=== PATIENT | female | born 1945 | race Caucasian/White ===

== ENCOUNTER 2017-10-10 13:45 | Outpatient (RCR) | payer OTHER, SELFPAY ==
--- NOTE | 2017-09-03 14:31 | PT.OIE ---
Current Diagnoses Patellofemoral disorders, left knee (09/03/17) Pain in left hip (09/03/17) Pain in left knee (09/03/17) Stiffness of left hip, not elsewhere classified (09/03/17) Weakness (09/03/17) Provider Visit Care Team Role Provider Type Martin Prajapati MD Family Provider Physician Primary Care Provider Specialty: Internal Medicine Address: [address] [place] [address], [id number] Email: Lalo Velasco MD Attending Provider Physician Specialty: Orthopedics Address: [address] [place] [address], [id number] Email: Physical Therapy Initial Evaluation PT-OP-A Visit Information Start: 09/03/17 13:56 Freq: Status: Active Protocol: Document 09/03/17 12:00 DCW (Rec: 09/03/17 14:28 [facility] [id number]) Out-Patient Physical Therapy Visit Information Visit Information Visit Type Initial Evaluation Visit Start Time 12:00 Visit Stop Time 12:45 Total Visit Minutes 45 Visit Number 1 Number of ENGRAVINGS POLISHER Visits 0 Evaluation Information Evaluation Date 09/03/17 PT-OP-B Current Condition Start: 09/03/17 13:56 Freq: Status: Active Protocol: Document 09/03/17 12:00 DCW (Rec: 09/03/17 14:28 [facility] [id number]) Current Condition History of Current Condition Onset Date Worsening over past year Current Complaints Left hip pain, left knee pain History of Current Condition Pt is a 72 year old female presenting with a multi-year history of left hip pain, which used to just be minimal background pain, but now she reports it began to worsen over the past year. Additionally, pt slipped in a puddle of water walking to an airplane in December,, landing on her left knee, an has now also been experiencing left knee pain since that time. Pt reports she forces herself to go for a walk every morning, but it normally causes increased pain. Pt also notes her pain worsens over the course of the day, and then improves as she sleeps over night. Pt notes her pain is a 7/10 at worst, but that it also just stays at a 7/10 for most of the day. Pt reports she has difficulty bending or kneeling down, and walking and gardening can be very difficult. Prior Treatments and Tests X-rays - per patient: The hip looks very healthy, but there is some degeneration in the knee. Treatment Goals Patient/Caregiver Goals I want to get rid of the pain , and get back to gardening normally. Prior Functional Status Baseline Function- ADL's Independent Baseline Function- Mobility Independent Baseline Function- Gait no assistive device Baseline Function- Recreation/Hobbies Morning walks, gardening Current Functional Impairments (Reported) Functional Limitations- Recreation/ Pain during long walks, pain Hobbies kneeling while gardening PT-OP-C Subjective Start: 09/03/17 13:56 Freq: Status: Active Protocol: Document 09/03/17 12:00 DCW (Rec: 09/03/17 14:28 DCW [id number]) Patient Questionnaires Lower Extremity Functional Scale LEFS Score 32/80 = 40% LEFS Impairment 40 to 59% Impaired (Score 32- 47) OP-PT Pain Assessment Pain Assessment Grid Paper Pain Assessment Grid Completed Yes Location Left Anterior Hip Intensity 7 Scale Used Numeric (1 - 10) Description Pressure Tightness Frequency Frequent Pain Alleviating Factors Inactivity Left Anterior Knee Intensity 7 Scale Used Numeric (1 - 10) Description Pinching Stabbing Frequency Frequent Pain Alleviating Factors Inactivity PT-OP-F Manual Assessment Start: 09/03/17 13:56 Freq: Status: Active Protocol: Document 09/03/17 12:00 DCW (Rec: 09/03/17 14:28 DCW [id number]) Manual Assessments Soft Tissue Assessment Soft Tissue Mobility Assessment Moderate tone, tenderness 3/4 = Wincing and withdrawal with palpation of the left iliopsoas and left piriformis Joint Mobility Assessment Joint Mobility Assessment Hip joint mobility WNL Tibiofemoral mobility WNL Patellofemoral mobility: Pain and crepitus with inferior/ superior glide PT-OP-K Range of Motion Start: 09/03/17 13:56 Freq: Status: Active Protocol: Document 09/03/17 12:00 DCW (Rec: 09/03/17 14:28 DCW [id number]) Hip Goniometric Range of Motion Hip Measured in Degrees Right Hip ROM WFL Yes Testing Position Supine Left Hip ROM WFL Yes Testing Position Supine Knee Goniometric Range of Motion Knee Measured in Degrees Right Knee ROM WFL Yes Left Knee ROM WFL Yes Patient Position Supine PT-OP-L Special Tests Start: 09/03/17 13:56 Freq: Status: Active Protocol: Document 09/03/17 12:00 DCW (Rec: 09/03/17 14:28 [facility] [id number]) Special Tests Lumbar Spine Special Tests Standing Flexion Test Results Negative Straight Leg Raise Test Results Negative Slump Test Results Negative Hip Special Tests Tl Test Results Hip flexor tightness Straight Leg Raise Test Results Negative Piriformis Test Results Left piriformis pain ALEJANDRINA Test Results Left - ipsilateral pain at lateral hip Knee Special Tests Varus- 0 Degrees Test Results Negative Valgus- 0 Degrees Test Results Negative Posterior Draw Test Results Negative Patellar Grind Test Test Results Positive left Nicol Test Test Results Negative Flexion Rotation Draw Test Results Negative Arc Compression Test Results Patellofemoral grinding/pain Anterior Draw Test Results Negative PT-OP-M Strength Start: 09/03/17 13:56 Freq: Status: Active Protocol: Document 09/03/17 12:00 DCW (Rec: 09/03/17 14:28 [facility] [id number]) Hip Strength Hip Manual Muscle Testing Right Flexion (L2) 5 Normal Abduction 4+ Good+ Adduction 4+ Good+ External Rotation 4 Good Internal Rotation 5 Normal Left Flexion (L2) 4 Good Abduction 4 Good Adduction 4+ Good+ External Rotation 4+ Good+ Internal Rotation 4+ Good+ Comments Pain with left resisted internal rotation Knee Strength Knee Manual Muscle Testing Right Flexion (S2) 5 Normal Extension (L3) 5 Normal Left Flexion (S2) 4 Good Extension (L3) 4+ Good+ Comments Pain with resisted left knee flexion PT-OP-Q Treatments Start: 09/03/17 13:56 Freq: Status: Active Protocol: Document 09/03/17 12:00 DCW (Rec: 09/03/17 14:28 [facility] [id number]) Therapeutic Exercises Supine Exercises 2 Supine Exercise Name Psoas stretch - leg off edge of table Side left 1 Supine Exercise Name Piriformis Stretch - Knee to Opposite shoulder, figure-4 Side left Sitting Exercises 1 Sitting Exercise Name Seated figure-4 piriformis stretch Side left Standing Exercises 2 Standing Exercise Name Half-knee on plinth psoas stretch Side left 1 Standing Exercise Name Runner's stretch with heel raised for psoas Side left PT-OP-T Assessment and Plan Start: 09/03/17 13:56 Freq: Status: Active Protocol: Document 09/03/17 12:00 DCW (Rec: 09/03/17 14:28 DCW [id number]) Physical Therapy Assessment Rehab Potential Rehabilitation Potential Excellent Evaluation Complexity Number of Personal Factors/Comorbidities 1-2 Number of Body Systems Impaired 1-2 Clinical Presentation at Evaluation Stable Impairments Impairments Activity Tolerance Pain Soft Tissue Mobility Strength Tone Goals Four Impairment Soft Tissue Tone Volunteer Recruitment Coordinator Goal (LTG) Left piriformis and iliopsoas tone with palpation to trace tone and tenderness 1/4 = complaint of pain LTG Duration 10/29/17 Three Impairment Joint mobility Short Term Goal (STG) Left patellofemoral joint exhibits no crepitus with inferior/superior glide STG Duration 10/01/17 Two Impairment Strength Volunteer Recruitment Coordinator Goal (LTG) Left LE MMT grossly 5/5 pain- free LTG Duration 10/29/17 One Impairment Activity Participation Short Term Goal (STG) Pt to report no increased pain during morning walk STG Duration 10/01/17 Volunteer Recruitment Coordinator Goal (LTG) Pt to report ability to kneel while gardening for 30 minutes with no pain LTG Duration 10/29/17 Assessment Summary Assessment Pt presents with increased tone through her left psoas and piriformis, as well as patellofemoral dysfunction. Pt does have full ROM with her knee and hip, and her hip shows no signs of underlying joint degeneration or arthritis. Pt's knee appears to be stable with no joint laxity following her fall last December. Pt should benefit from general LE strengthening, flexibility/stretching exercises and manual therapy to assist decreasing tone, modalities for pain control, and body piercer training to improve ability to walk and kneel without causing pain. Physical Therapy Plan Frequency and Duration Frequency of Treatment 2x/Week Duration of Treatment 10 weeks Plan of Care Start Date 09/03/17 Plan of Care End Date 11/12/17 Therapeutic Interventions Therapeutic Interventions Aquatic Therapy Home Exercise Program Joint Mobilizations Manual Therapy Patient/Caregiver Education Self-Care/Home Management Soft Tissue Mobilization Taping Therapeutic Exercises Modalities Cold Pack/Ice Massage Electric Stimulation Hot Packs Ultrasound Next Visit Focus/Plan Next Note Type Treatment Note Next Visit Plan LE strengthening, stretching, manual STM
--- NOTE | 2017-09-03 14:31 | PT.OPPOC ---
Current Diagnoses Patellofemoral disorders, left knee (09/03/17) Pain in left hip (09/03/17) Pain in left knee (09/03/17) Stiffness of left hip, not elsewhere classified (09/03/17) Weakness (09/03/17) Provider Visit Care Team Role Provider Type Martin Prajapati MD Family Provider Physician Primary Care Provider Specialty: Internal Medicine Address: [address] [place] [address], [phone] Email: Lalo Velasco MD Attending Provider Physician Specialty: Orthopedics Address: [address] [place] [address], [id number] Email: Plan Of Care PT-OP-T Assessment and Plan Start: 09/03/17 13:56 Freq: Status: Active Protocol: Document 09/03/17 12:00 DCW (Rec: 09/03/17 14:28 DCW [id number]) Physical Therapy Assessment Rehab Potential Rehabilitation Potential Excellent Evaluation Complexity Number of Personal Factors/Comorbidities 1-2 Number of Body Systems Impaired 1-2 Clinical Presentation at Evaluation Stable Impairments Impairments Activity Tolerance Pain Soft Tissue Mobility Strength Tone Goals Four Impairment Soft Tissue Tone Electrical Equipment Technician Goal (LTG) Left piriformis and iliopsoas tone with palpation to trace tone and tenderness 1/4 = complaint of pain LTG Duration 10/29/17 Three Impairment Joint mobility Short Term Goal (STG) Left patellofemoral joint exhibits no crepitus with inferior/superior glide STG Duration 10/01/17 Two Impairment Strength Half-Way Goal (LTG) Left LE MMT grossly 5/5 pain- free LTG Duration 10/29/17 One Impairment Activity Participation Short Term Goal (STG) Pt to report no increased pain during morning walk STG Duration 10/01/17 Electrical Equipment Technician Goal (LTG) Pt to report ability to kneel while gardening for 30 minutes with no pain LTG Duration 10/29/17 Assessment Summary Assessment Pt presents with increased tone through her left psoas and piriformis, as well as patellofemoral dysfunction. Pt does have full ROM with her knee and hip, and her hip shows no signs of underlying joint degeneration or arthritis. Pt's knee appears to be stable with no joint laxity following her fall last December. Pt should benefit from general LE strengthening, flexibility/stretching exercises and manual therapy to assist decreasing tone, modalities for pain control, and body shop floorperson training to improve ability to walk and kneel without causing pain. Physical Therapy Plan Frequency and Duration Frequency of Treatment 2x/Week Duration of Treatment 10 weeks Plan of Care Start Date 09/03/17 Plan of Care End Date 11/12/17 Therapeutic Interventions Therapeutic Interventions Aquatic Therapy Home Exercise Program Joint Mobilizations Manual Therapy Patient/Caregiver Education Self-Care/Home Management Soft Tissue Mobilization Taping Therapeutic Exercises Modalities Cold Pack/Ice Massage Electric Stimulation Hot Packs Ultrasound Next Visit Focus/Plan Next Note Type Treatment Note Next Visit Plan LE strengthening, stretching, manual STM Plan of Care Dates Plan of Care Start Date 09/03/17 Plan of Care End Date 11/12/17 Please Sign and Return: I have reviewed this Plan of Care and certify that the skilled therapy services above are required to meet the patient?s needs. Physician Signature Date Printed Name and Credentials Clinical Instructor Signature Printed Name and Credentials
--- NOTE | 2017-09-10 12:46 | PT.OTN ---
Current Diagnoses Patellofemoral disorders, left knee (09/10/17) Physical Therapy Treatment Note PT-OP-A Visit Information Start: 09/03/17 13:56 Freq: Status: Active Protocol: Document 09/10/17 12:00 DCW (Rec: 09/10/17 12:46 DCW [id number]) Out-Patient Physical Therapy Visit Information Visit Information Visit Type Treatment Note Visit Start Time 12:00 Visit Stop Time 12:45 Total Visit Minutes 45 Visit Number 2 Number of MELT HOUSE DRAG OPERATOR Visits 0 Evaluation Information Evaluation Date 09/03/17 PT-OP-B Current Condition Start: 09/03/17 13:56 Freq: Status: Active Protocol: Document 09/03/17 12:00 DCW (Rec: 09/03/17 14:28 DCW [id number]) Current Condition History of Current Condition Onset Date Worsening over past year Current Complaints Left hip pain, left knee pain History of Current Condition Pt is a 72 year old female presenting with a multi-year history of left hip pain, which used to just be minimal background pain, but now she reports it began to worsen over the past year. Additionally, pt slipped in a puddle of water walking to an airplane in December,, landing on her left knee, an has now also been experiencing left knee pain since that time. Pt reports she forces herself to go for a walk every morning, but it normally causes increased pain. Pt also notes her pain worsens over the course of the day, and then improves as she sleeps over night. Pt notes her pain is a 7/10 at worst, but that it also just stays at a 7/10 for most of the day. Pt reports she has difficulty bending or kneeling down, and walking and gardening can be very difficult. Prior Treatments and Tests X-rays - per patient: The hip looks very healthy, but there is some degeneration in the knee. Treatment Goals Patient/Caregiver Goals I want to get rid of the pain , and get back to gardening normally. Prior Functional Status Baseline Function- ADL's Independent Baseline Function- Mobility Independent Baseline Function- Gait no assistive device Baseline Function- Recreation/Hobbies Morning walks, gardening Current Functional Impairments (Reported) Functional Limitations- Recreation/ Pain during long walks, pain Hobbies kneeling while gardening PT-OP-C Subjective Start: 09/03/17 13:56 Freq: Status: Active Protocol: Document 09/10/17 12:00 DCW (Rec: 09/10/17 12:46 DCW [id number]) OP-PT Subjective Patient Comments Patient Comments I'm having a pretty bad day, I'm sorry to say. My knee and my hip areboth killing me. Pt notes she did her morning walk for the first time in a week this morning, and thinks that may have done me in. PT-OP-F Manual Assessment Start: 09/03/17 13:56 Freq: Status: Active Protocol: Document 09/03/17 12:00 DCW (Rec: 09/03/17 14:28 DCW [id number]) Manual Assessments Soft Tissue Assessment Soft Tissue Mobility Assessment Moderate tone, tenderness 3/4 = Wincing and withdrawal with palpation of the left iliopsoas and left piriformis Joint Mobility Assessment Joint Mobility Assessment Hip joint mobility WNL Tibiofemoral mobility WNL Patellofemoral mobility: Pain and crepitus with inferior/ superior glide PT-OP-K Range of Motion Start: 09/03/17 13:56 Freq: Status: Active Protocol: Document 09/03/17 12:00 DCW (Rec: 09/03/17 14:28 DCW [id number]) Hip Goniometric Range of Motion Hip Measured in Degrees Right Hip ROM WFL Yes Testing Position Supine Left Hip ROM WFL Yes Testing Position Supine Knee Goniometric Range of Motion Knee Measured in Degrees Right Knee ROM WFL Yes Left Knee ROM WFL Yes Patient Position Supine PT-OP-L Special Tests Start: 09/03/17 13:56 Freq: Status: Active Protocol: Document 09/03/17 12:00 DCW (Rec: 09/03/17 14:28 [facility] [id number]) Special Tests Lumbar Spine Special Tests Standing Flexion Test Results Negative Straight Leg Raise Test Results Negative Slump Test Results Negative Hip Special Tests Tl Test Results Hip flexor tightness Straight Leg Raise Test Results Negative Piriformis Test Results Left piriformis pain ALEJANDRINA Test Results Left - ipsilateral pain at lateral hip Knee Special Tests Varus- 0 Degrees Test Results Negative Valgus- 0 Degrees Test Results Negative Posterior Draw Test Results Negative Patellar Grind Test Test Results Positive left Nicol Test Test Results Negative Flexion Rotation Draw Test Results Negative Arc Compression Test Results Patellofemoral grinding/pain Anterior Draw Test Results Negative PT-OP-M Strength Start: 09/03/17 13:56 Freq: Status: Active Protocol: Document 09/03/17 12:00 DCW (Rec: 09/03/17 14:28 DCW [id number]) Hip Strength Hip Manual Muscle Testing Right Flexion (L2) 5 Normal Abduction 4+ Good+ Adduction 4+ Good+ External Rotation 4 Good Internal Rotation 5 Normal Left Flexion (L2) 4 Good Abduction 4 Good Adduction 4+ Good+ External Rotation 4+ Good+ Internal Rotation 4+ Good+ Comments Pain with left resisted internal rotation Knee Strength Knee Manual Muscle Testing Right Flexion (S2) 5 Normal Extension (L3) 5 Normal Left Flexion (S2) 4 Good Extension (L3) 4+ Good+ Comments Pain with resisted left knee flexion PT-OP-Q Treatments Start: 09/03/17 13:56 Freq: Status: Active Protocol: Document 09/10/17 12:00 DCW (Rec: 09/10/17 12:46 DCW [id number]) Cardio Equipment Recumbent Bicycle Duration (Minutes) 5 Resistance 5 Seat Position 1 Gym Equipment Shuttle Recovery Unilateral Squats Resistance 50# Shuttle Recovery Platform Stable Bilateral Squats Resistance 87# Shuttle Recovery Platform Stable Shuttle Balance 1 Details Red - Wide YURIY, Staggered Stance Therapeutic Exercises Supine Exercises 1 Supine Exercise Name Piriformis Stretch - Knee to Opposite shoulder, figure-4 Side left Manual Therapy Treatment Soft Tissue Mobilization 1 Body Location Piriformis Mobilization Type Strumming Sustained Pressure Trigger Point Release Intensity/Depth Moderate Body Position Sidelying Joint Mobilizations 1 Joint Patellofemoral Direction Superior/Inferior Grade III Body Position Supine Taping 1 Body Location L knee Treatment Focus Medial patella pull Type of Tape Kinesio Tape PT-OP-T Assessment and Plan Start: 09/03/17 13:56 Freq: Status: Active Protocol: Document 09/10/17 12:00 DCW (Rec: 09/10/17 12:46 DCW [id number]) Physical Therapy Assessment Impairments Impairments Activity Tolerance Pain Soft Tissue Mobility Strength Tone Goals Four Impairment Soft Tissue Tone Prison Goal (LTG) Left piriformis and iliopsoas tone with palpation to trace tone and tenderness 1/4 = complaint of pain LTG Duration 10/29/17 Three Impairment Joint mobility Short Term Goal (STG) Left patellofemoral joint exhibits no crepitus with inferior/superior glide STG Duration 10/01/17 Two Impairment Strength Prison Goal (LTG) Left LE MMT grossly 5/5 pain- free LTG Duration 10/29/17 One Impairment Activity Participation Short Term Goal (STG) Pt to report no increased pain during morning walk STG Duration 10/01/17 Prison Goal (LTG) Pt to report ability to kneel while gardening for 30 minutes with no pain LTG Duration 10/29/17 Assessment Summary Assessment Pt felt improved following her session today, able to walk out of clinic with less pain. Physical Therapy Plan Frequency and Duration Frequency of Treatment 2x/Week Duration of Treatment 10 weeks Plan of Care Start Date 09/03/17 Plan of Care End Date 11/12/17 Therapeutic Interventions Therapeutic Interventions Aquatic Therapy Home Exercise Program Joint Mobilizations Manual Therapy Patient/Caregiver Education Self-Care/Home Management Soft Tissue Mobilization Taping Therapeutic Exercises Modalities Cold Pack/Ice Massage Electric Stimulation Hot Packs Ultrasound Next Visit Focus/Plan Next Note Type Treatment Note Next Visit Plan LE strengthening, stretching, manual STM
--- NOTE | 2017-09-13 16:38 | PT.OTN ---
Current Diagnoses Patellofemoral disorders, left knee (09/13/17) Physical Therapy Treatment Note PT-OP-A Visit Information Start: 09/03/17 13:56 Freq: Status: Active Protocol: Document 09/13/17 16:32 [facility] (Rec: 09/13/17 16:38 [facility] [id number]) Out-Patient Physical Therapy Visit Information Visit Information Visit Type Treatment Note Visit Start Time 11:15 Visit Stop Time 12:00 Total Visit Minutes 45 Visit Number 3 Number of SPLITTER HEAD Visits 0 PT-OP-B Current Condition Start: 09/03/17 13:56 Freq: Status: Active Protocol: Document 09/03/17 12:00 [facility] (Rec: 09/03/17 14:28 DCW [id number]) Current Condition History of Current Condition Onset Date Worsening over past year Current Complaints Left hip pain, left knee pain History of Current Condition Pt is a 72 year old female presenting with a multi-year history of left hip pain, which used to just be minimal background pain, but now she reports it began to worsen over the past year. Additionally, pt slipped in a puddle of water walking to an airplane in December,, landing on her left knee, an has now also been experiencing left knee pain since that time. Pt reports she forces herself to go for a walk every morning, but it normally causes increased pain. Pt also notes her pain worsens over the course of the day, and then improves as she sleeps over night. Pt notes her pain is a 7/10 at worst, but that it also just stays at a 7/10 for most of the day. Pt reports she has difficulty bending or kneeling down, and walking and gardening can be very difficult. Prior Treatments and Tests X-rays - per patient: The hip looks very healthy, but there is some degeneration in the knee. Treatment Goals Patient/Caregiver Goals I want to get rid of the pain , and get back to gardening normally. Prior Functional Status Baseline Function- ADL's Independent Baseline Function- Mobility Independent Baseline Function- Gait no assistive device Baseline Function- Recreation/Hobbies Morning walks, gardening Current Functional Impairments (Reported) Functional Limitations- Recreation/ Pain during long walks, pain Hobbies kneeling while gardening PT-OP-C Subjective Start: 09/03/17 13:56 Freq: Status: Active Protocol: Document 09/13/17 16:32 [facility] (Rec: 09/13/17 16:38 [facility] [id number]) OP-PT Subjective Patient Comments Patient Comments Reports L hip has been doing well, but L knee is hurting PT-OP-F Manual Assessment Start: 09/03/17 13:56 Freq: Status: Active Protocol: Document 09/03/17 12:00 DC[facility] (Rec: 09/03/17 14:28 DCW [id number]) Manual Assessments Soft Tissue Assessment Soft Tissue Mobility Assessment Moderate tone, tenderness 3/4 = Wincing and withdrawal with palpation of the left iliopsoas and left piriformis Joint Mobility Assessment Joint Mobility Assessment Hip joint mobility WNL Tibiofemoral mobility WNL Patellofemoral mobility: Pain and crepitus with inferior/ superior glide PT-OP-K Range of Motion Start: 09/03/17 13:56 Freq: Status: Active Protocol: Document 09/03/17 12:00 DCW (Rec: 09/03/17 14:28 DCW [id number]) Hip Goniometric Range of Motion Hip Measured in Degrees Right Hip ROM WFL Yes Testing Position Supine Left Hip ROM WFL Yes Testing Position Supine Knee Goniometric Range of Motion Knee Measured in Degrees Right Knee ROM WFL Yes Left Knee ROM WFL Yes Patient Position Supine PT-OP-L Special Tests Start: 09/03/17 13:56 Freq: Status: Active Protocol: Document 09/03/17 12:00 DC[facility] (Rec: 09/03/17 14:28 DCW [id number]) Special Tests Lumbar Spine Special Tests Standing Flexion Test Results Negative Straight Leg Raise Test Results Negative Slump Test Results Negative Hip Special Tests Tl Test Results Hip flexor tightness Straight Leg Raise Test Results Negative Piriformis Test Results Left piriformis pain ALEJANDRINA Test Results Left - ipsilateral pain at lateral hip Knee Special Tests Varus- 0 Degrees Test Results Negative Valgus- 0 Degrees Test Results Negative Posterior Draw Test Results Negative Patellar Grind Test Test Results Positive left Nicol Test Test Results Negative Flexion Rotation Draw Test Results Negative Arc Compression Test Results Patellofemoral grinding/pain Anterior Draw Test Results Negative PT-OP-M Strength Start: 09/03/17 13:56 Freq: Status: Active Protocol: Document 09/03/17 12:00 DC[facility] (Rec: 09/03/17 14:28 DCW [id number]) Hip Strength Hip Manual Muscle Testing Right Flexion (L2) 5 Normal Abduction 4+ Good+ Adduction 4+ Good+ External Rotation 4 Good Internal Rotation 5 Normal Left Flexion (L2) 4 Good Abduction 4 Good Adduction 4+ Good+ External Rotation 4+ Good+ Internal Rotation 4+ Good+ Comments Pain with left resisted internal rotation Knee Strength Knee Manual Muscle Testing Right Flexion (S2) 5 Normal Extension (L3) 5 Normal Left Flexion (S2) 4 Good Extension (L3) 4+ Good+ Comments Pain with resisted left knee flexion PT-OP-Q Treatments Start: 09/03/17 13:56 Freq: Status: Active Protocol: Document 09/13/17 16:32 [facility] (Rec: 09/13/17 16:38 [facility] [id number]) Cardio Equipment Recumbent Bicycle Duration (Minutes) 5 Resistance 5 Seat Position 1 Gym Equipment Shuttle Recovery Unilateral Squats Resistance 50# Shuttle Recovery Platform Stable Bilateral Squats Resistance 100# Shuttle Recovery Platform Stable Therapeutic Exercises Supine Exercises 3 Supine Exercise Name bridge with alt march Sidelying Exercises 1 Sidelying Exercise Name hip abd Reps/Minutes 20 Standing Exercises 3 Standing Exercise Name TKE Equipment Used lvl 3 Reps/Minutes 20 Therapeutic Activity Therapeutic Activity 3 Name tennis ball roll out & rolling pin 2 Name icing Comments importance of ice after walk & before bed 1 Name sleep position Comments s/l Manual Therapy Treatment Soft Tissue Mobilization 2 Body Location VMO lat border Mobilization Type Sustained Pressure Comments FM Joint Mobilizations 1 Joint Patellofemoral Direction Superior/Inferior Grade III Body Position Supine PT-OP-T Assessment and Plan Start: 09/03/17 13:56 Freq: Status: Active Protocol: Document 09/13/17 16:32 [facility] (Rec: 09/13/17 16:38 [facility] [id number]) Physical Therapy Assessment Goals Four Impairment Soft Tissue Tone Associate Business Analyst Goal (LTG) Left piriformis and iliopsoas tone with palpation to trace tone and tenderness 1/4 = complaint of pain LTG Duration 10/29/17 Three Impairment Joint mobility Short Term Goal (STG) Left patellofemoral joint exhibits no crepitus with inferior/superior glide STG Duration 10/01/17 Two Impairment Strength Senior Care Goal (LTG) Left LE MMT grossly 5/5 pain- free LTG Duration 10/29/17 One Impairment Activity Participation Short Term Goal (STG) Pt to report no increased pain during morning walk STG Duration 10/01/17 Associate Business Analyst Goal (LTG) Pt to report ability to kneel while gardening for 30 minutes with no pain LTG Duration 10/29/17 Assessment Summary Assessment Pt able to activate quads with manual faciliaton on shuttle and had improved VMO activation with STM to lat VMO border. Physical Therapy Plan Frequency and Duration Frequency of Treatment 2x/Week Duration of Treatment 10 weeks Plan of Care Start Date 09/03/17 Plan of Care End Date 11/12/17 Next Visit Focus/Plan Next Note Type Treatment Note Next Visit Plan LE strengthening, stretching, manual STM with focus on VMO & glutes
--- NOTE | 2017-09-18 12:09 | PT.OTN ---
Current Diagnoses Patellofemoral disorders, left knee (09/18/17) Physical Therapy Treatment Note PT-OP-A Visit Information Start: 09/03/17 13:56 Freq: Status: Active Protocol: Document 09/18/17 11:20 [facility] (Rec: 09/18/17 12:09 [facility] [id number]) Out-Patient Physical Therapy Visit Information Visit Information Visit Type Treatment Note Visit Start Time 11:20 Visit Stop Time 12:00 Total Visit Minutes 40 Visit Number 4 Number of SAFETY EQUIPMENT TESTING SPECIALIST Visits 0 PT-OP-B Current Condition Start: 09/03/17 13:56 Freq: Status: Active Protocol: Document 09/03/17 12:00 [facility] (Rec: 09/03/17 14:28 DCW [id number]) Current Condition History of Current Condition Onset Date Worsening over past year Current Complaints Left hip pain, left knee pain History of Current Condition Pt is a 72 year old female presenting with a multi-year history of left hip pain, which used to just be minimal background pain, but now she reports it began to worsen over the past year. Additionally, pt slipped in a puddle of water walking to an airplane in December,, landing on her left knee, an has now also been experiencing left knee pain since that time. Pt reports she forces herself to go for a walk every morning, but it normally causes increased pain. Pt also notes her pain worsens over the course of the day, and then improves as she sleeps over night. Pt notes her pain is a 7/10 at worst, but that it also just stays at a 7/10 for most of the day. Pt reports she has difficulty bending or kneeling down, and walking and gardening can be very difficult. Prior Treatments and Tests X-rays - per patient: The hip looks very healthy, but there is some degeneration in the knee. Treatment Goals Patient/Caregiver Goals I want to get rid of the pain , and get back to gardening normally. Prior Functional Status Baseline Function- ADL's Independent Baseline Function- Mobility Independent Baseline Function- Gait no assistive device Baseline Function- Recreation/Hobbies Morning walks, gardening Current Functional Impairments (Reported) Functional Limitations- Recreation/ Pain during long walks, pain Hobbies kneeling while gardening PT-OP-C Subjective Start: 09/03/17 13:56 Freq: Status: Active Protocol: Document 09/18/17 11:20 [facility] (Rec: 09/18/17 12:09 [facility] [id number]) OP-PT Subjective Patient Comments Patient Comments Pt reports she is going further when she walks before pain starts. Sleeping was a little better with the pillows . PT-OP-F Manual Assessment Start: 09/03/17 13:56 Freq: Status: Active Protocol: Document 09/03/17 12:00 [facility] (Rec: 09/03/17 14:28 DCW [id number]) Manual Assessments Soft Tissue Assessment Soft Tissue Mobility Assessment Moderate tone, tenderness 3/4 = Wincing and withdrawal with palpation of the left iliopsoas and left piriformis Joint Mobility Assessment Joint Mobility Assessment Hip joint mobility WNL Tibiofemoral mobility WNL Patellofemoral mobility: Pain and crepitus with inferior/ superior glide PT-OP-K Range of Motion Start: 09/03/17 13:56 Freq: Status: Active Protocol: Document 09/03/17 12:00 [facility] (Rec: 09/03/17 14:28 DCW [id number]) Hip Goniometric Range of Motion Hip Measured in Degrees Right Hip ROM WFL Yes Testing Position Supine Left Hip ROM WFL Yes Testing Position Supine Knee Goniometric Range of Motion Knee Measured in Degrees Right Knee ROM WFL Yes Left Knee ROM WFL Yes Patient Position Supine PT-OP-L Special Tests Start: 09/03/17 13:56 Freq: Status: Active Protocol: Document 09/03/17 12:00 [facility] (Rec: 09/03/17 14:28 DCW [id number]) Special Tests Lumbar Spine Special Tests Standing Flexion Test Results Negative Straight Leg Raise Test Results Negative Slump Test Results Negative Hip Special Tests Tl Test Results Hip flexor tightness Straight Leg Raise Test Results Negative Piriformis Test Results Left piriformis pain ALEJANDRINA Test Results Left - ipsilateral pain at lateral hip Knee Special Tests Varus- 0 Degrees Test Results Negative Valgus- 0 Degrees Test Results Negative Posterior Draw Test Results Negative Patellar Grind Test Test Results Positive left Nicol Test Test Results Negative Flexion Rotation Draw Test Results Negative Arc Compression Test Results Patellofemoral grinding/pain Anterior Draw Test Results Negative PT-OP-M Strength Start: 09/03/17 13:56 Freq: Status: Active Protocol: Document 09/03/17 12:00 [facility] (Rec: 09/03/17 14:28 DC[facility] [id number]) Hip Strength Hip Manual Muscle Testing Right Flexion (L2) 5 Normal Abduction 4+ Good+ Adduction 4+ Good+ External Rotation 4 Good Internal Rotation 5 Normal Left Flexion (L2) 4 Good Abduction 4 Good Adduction 4+ Good+ External Rotation 4+ Good+ Internal Rotation 4+ Good+ Comments Pain with left resisted internal rotation Knee Strength Knee Manual Muscle Testing Right Flexion (S2) 5 Normal Extension (L3) 5 Normal Left Flexion (S2) 4 Good Extension (L3) 4+ Good+ Comments Pain with resisted left knee flexion PT-OP-Q Treatments Start: 09/03/17 13:56 Freq: Status: Active Protocol: Document 09/18/17 11:20 [facility] (Rec: 09/18/17 12:09 [facility] [id number]) Cardio Equipment Recumbent Bicycle Duration (Minutes) 5 Resistance 5 Seat Position 2 Gym Equipment Shuttle Recovery Unilateral Squats Details B Resistance 50# Shuttle Recovery Platform Stable Reps/Time 20 Bilateral Squats Details to fatigue Resistance 100# Shuttle Recovery Platform Stable Reps/Time tband around knees for abd Shuttle Balance 1 Details Red - Wide YURIY, Staggered Stance Therapeutic Exercises Standing Exercises 4 Standing Exercise Name up 4 in step in mirror Comments stopped d/t pain 3 Standing Exercise Name TKE Equipment Used lvl 3 Reps/Minutes 20 Manual Therapy Treatment Soft Tissue Mobilization 3 Body Location tibia Mobilization Type Myofascial Release Comments Circumfrential mobilization with TKE supine & standing 2 Body Location VMO med border Mobilization Type Sustained Pressure Comments FM Joint Mobilizations 1 Joint Patellofemoral Direction Superior/Inferior Grade III Body Position Supine PT-OP-T Assessment and Plan Start: 09/03/17 13:56 Freq: Status: Active Protocol: Document 09/18/17 11:20 [facility] (Rec: 09/18/17 12:09 [facility] [id number]) Physical Therapy Assessment Goals Four Impairment Soft Tissue Tone Resource Management Specialist Goal (LTG) Left piriformis and iliopsoas tone with palpation to trace tone and tenderness 1/4 = complaint of pain LTG Duration 10/29/17 Three Impairment Joint mobility Short Term Goal (STG) Left patellofemoral joint exhibits no crepitus with inferior/superior glide STG Duration 10/01/17 Two Impairment Strength [facility] Goal (LTG) Left LE MMT grossly 5/5 pain- free LTG Duration 10/29/17 One Impairment Activity Participation Short Term Goal (STG) Pt to report no increased pain during morning walk STG Duration 10/01/17 Resource Management Specialist Goal (LTG) Pt to report ability to kneel while gardening for 30 minutes with no pain LTG Duration 10/29/17 Assessment Summary Assessment pt had dec pain and improved knee tracking with knee ext after manual STM. Improved tolerance to leg press with tband around knees to facilitate glutes. Physical Therapy Plan Frequency and Duration Frequency of Treatment 2x/Week Duration of Treatment 10 weeks Plan of Care Start Date 09/03/17 Plan of Care End Date 11/12/17 Next Visit Focus/Plan Next Note Type Treatment Note Next Visit Plan LE strengthening, stretching, manual STM with focus on VMO & glutes
--- NOTE | 2017-09-21 12:43 | PT.OTN ---
Current Diagnoses Patellofemoral disorders, left knee (09/21/17) Physical Therapy Treatment Note PT-OP-A Visit Information Start: 09/03/17 13:56 Freq: Status: Active Protocol: Document 09/21/17 12:00 [facility] (Rec: 09/21/17 12:43 DCW [id number]) Out-Patient Physical Therapy Visit Information Visit Information Visit Type Treatment Note Visit Start Time 12:00 Visit Stop Time 12:45 Total Visit Minutes 45 Visit Number 5 Number of PROMOTIONS TEAM LEADER Visits 0 Evaluation Information Evaluation Date 09/03/17 PT-OP-B Current Condition Start: 09/03/17 13:56 Freq: Status: Active Protocol: Document 09/03/17 12:00 DC[facility] (Rec: 09/03/17 14:28 DCW [id number]) Current Condition History of Current Condition Onset Date Worsening over past year Current Complaints Left hip pain, left knee pain History of Current Condition Pt is a 72 year old female presenting with a multi-year history of left hip pain, which used to just be minimal background pain, but now she reports it began to worsen over the past year. Additionally, pt slipped in a puddle of water walking to an airplane in December,, landing on her left knee, an has now also been experiencing left knee pain since that time. Pt reports she forces herself to go for a walk every morning, but it normally causes increased pain. Pt also notes her pain worsens over the course of the day, and then improves as she sleeps over night. Pt notes her pain is a 7/10 at worst, but that it also just stays at a 7/10 for most of the day. Pt reports she has difficulty bending or kneeling down, and walking and gardening can be very difficult. Prior Treatments and Tests X-rays - per patient: The hip looks very healthy, but there is some degeneration in the knee. Treatment Goals Patient/Caregiver Goals I want to get rid of the pain , and get back to gardening normally. Prior Functional Status Baseline Function- ADL's Independent Baseline Function- Mobility Independent Baseline Function- Gait no assistive device Baseline Function- Recreation/Hobbies Morning walks, gardening Current Functional Impairments (Reported) Functional Limitations- Recreation/ Pain during long walks, pain Hobbies kneeling while gardening PT-OP-C Subjective Start: 09/03/17 13:56 Freq: Status: Active Protocol: Document 09/21/17 12:00 [facility] (Rec: 09/21/17 12:43 DCW [id number]) OP-PT Subjective Patient Comments Patient Comments It's better than it was when I started, but some days are stioll better than others. PT-OP-F Manual Assessment Start: 09/03/17 13:56 Freq: Status: Active Protocol: Document 09/03/17 12:00 [facility] (Rec: 09/03/17 14:28 DCW [id number]) Manual Assessments Soft Tissue Assessment Soft Tissue Mobility Assessment Moderate tone, tenderness 3/4 = Wincing and withdrawal with palpation of the left iliopsoas and left piriformis Joint Mobility Assessment Joint Mobility Assessment Hip joint mobility WNL Tibiofemoral mobility WNL Patellofemoral mobility: Pain and crepitus with inferior/ superior glide PT-OP-K Range of Motion Start: 09/03/17 13:56 Freq: Status: Active Protocol: Document 09/03/17 12:00 [facility] (Rec: 09/03/17 14:28 DCW [id number]) Hip Goniometric Range of Motion Hip Measured in Degrees Right Hip ROM WFL Yes Testing Position Supine Left Hip ROM WFL Yes Testing Position Supine Knee Goniometric Range of Motion Knee Measured in Degrees Right Knee ROM WFL Yes Left Knee ROM WFL Yes Patient Position Supine PT-OP-L Special Tests Start: 09/03/17 13:56 Freq: Status: Active Protocol: Document 09/03/17 12:00 [facility] (Rec: 09/03/17 14:28 DCW [id number]) Special Tests Lumbar Spine Special Tests Standing Flexion Test Results Negative Straight Leg Raise Test Results Negative Slump Test Results Negative Hip Special Tests Tl Test Results Hip flexor tightness Straight Leg Raise Test Results Negative Piriformis Test Results Left piriformis pain ALEJANDRINA Test Results Left - ipsilateral pain at lateral hip Knee Special Tests Varus- 0 Degrees Test Results Negative Valgus- 0 Degrees Test Results Negative Posterior Draw Test Results Negative Patellar Grind Test Test Results Positive left Nicol Test Test Results Negative Flexion Rotation Draw Test Results Negative Arc Compression Test Results Patellofemoral grinding/pain Anterior Draw Test Results Negative PT-OP-M Strength Start: 09/03/17 13:56 Freq: Status: Active Protocol: Document 09/03/17 12:00 [facility] (Rec: 09/03/17 14:28 DCW [id number]) Hip Strength Hip Manual Muscle Testing Right Flexion (L2) 5 Normal Abduction 4+ Good+ Adduction 4+ Good+ External Rotation 4 Good Internal Rotation 5 Normal Left Flexion (L2) 4 Good Abduction 4 Good Adduction 4+ Good+ External Rotation 4+ Good+ Internal Rotation 4+ Good+ Comments Pain with left resisted internal rotation Knee Strength Knee Manual Muscle Testing Right Flexion (S2) 5 Normal Extension (L3) 5 Normal Left Flexion (S2) 4 Good Extension (L3) 4+ Good+ Comments Pain with resisted left knee flexion PT-OP-Q Treatments Start: 09/03/17 13:56 Freq: Status: Active Protocol: Document 09/21/17 12:00 [facility] (Rec: 09/21/17 12:43 DCW [id number]) Cardio Equipment Recumbent Bicycle Duration (Minutes) 5 Resistance 5 Seat Position 2 Gym Equipment Shuttle Recovery Unilateral Squats Resistance 50# Shuttle Recovery Platform Stable Bilateral Squats Resistance 100# Shuttle Recovery Platform Stable Shuttle Balance 1 Details Red - Wide YURIY, Staggered Stance Therapeutic Exercises Supine Exercises 4 Supine Exercise Name SLR /c ER Side left Resistance 4# 1 Supine Exercise Name Piriformis Stretch - Knee to Opposite shoulder, figure-4 Side left Standing Exercises 3 Standing Exercise Name TKE Equipment Used lvl 3 Reps/Minutes 20 Manual Therapy Treatment Soft Tissue Mobilization 1 Body Location Piriformis Mobilization Type Strumming Sustained Pressure Trigger Point Release Intensity/Depth Moderate Body Position Sidelying Joint Mobilizations 1 Joint Patellofemoral Direction Superior/Inferior Grade III Body Position Supine Taping 1 Body Location L knee Treatment Focus Medial patella pull Type of Tape Kinesio Tape PT-OP-T Assessment and Plan Start: 09/03/17 13:56 Freq: Status: Active Protocol: Document 09/21/17 12:00 DC[facility] (Rec: 09/21/17 12:43 DCW [id number]) Physical Therapy Assessment Impairments Impairments Activity Tolerance Pain Soft Tissue Mobility Strength Tone Goals Four Impairment Soft Tissue Tone Fluid Power Mechanic Goal (LTG) Left piriformis and iliopsoas tone with palpation to trace tone and tenderness 1/4 = complaint of pain LTG Duration 10/29/17 Three Impairment Joint mobility Short Term Goal (STG) Left patellofemoral joint exhibits no crepitus with inferior/superior glide STG Duration 10/01/17 Two Impairment Strength Fluid Power Mechanic Goal (LTG) Left LE MMT grossly 5/5 pain- free LTG Duration 10/29/17 One Impairment Activity Participation Short Term Goal (STG) Pt to report no increased pain during morning walk STG Duration 10/01/17 [facility]ci Goal (LTG) Pt to report ability to kneel while gardening for 30 minutes with no pain LTG Duration 10/29/17 Assessment Summary Assessment Pt continues to improve with her pain and mobility, no complaints with her HEP at this time. Physical Therapy Plan Frequency and Duration Frequency of Treatment 2x/Week Duration of Treatment 10 weeks Plan of Care Start Date 09/03/17 Plan of Care End Date 11/12/17 Therapeutic Interventions Therapeutic Interventions Aquatic Therapy Home Exercise Program Joint Mobilizations Manual Therapy Patient/Caregiver Education Self-Care/Home Management Soft Tissue Mobilization Taping Therapeutic Exercises Modalities Cold Pack/Ice Massage Electric Stimulation Hot Packs Ultrasound Next Visit Focus/Plan Next Note Type Treatment Note Next Visit Plan LE strengthening, stretching, manual STM with focus on VMO & glutes
--- NOTE | 2017-09-24 12:43 | PT.OTN ---
Current Diagnoses Patellofemoral disorders, left knee (09/24/17) Physical Therapy Treatment Note PT-OP-A Visit Information Start: 09/03/17 13:56 Freq: Status: Active Protocol: Document 09/24/17 12:00 DCW (Rec: 09/24/17 12:43 DCW [id number]) Out-Patient Physical Therapy Visit Information Visit Information Visit Type Treatment Note Visit Start Time 12:00 Visit Stop Time 12:45 Total Visit Minutes 45 Visit Number 6 Number of IT DESKTOP SUPPORT SPECIALIST Visits 0 Evaluation Information Evaluation Date 09/03/17 PT-OP-B Current Condition Start: 09/03/17 13:56 Freq: Status: Active Protocol: Document 09/03/17 12:00 DCW (Rec: 09/03/17 14:28 DCW [id number]) Current Condition History of Current Condition Onset Date Worsening over past year Current Complaints Left hip pain, left knee pain History of Current Condition Pt is a 72 year old female presenting with a multi-year history of left hip pain, which used to just be minimal background pain, but now she reports it began to worsen over the past year. Additionally, pt slipped in a puddle of water walking to an airplane in December,, landing on her left knee, an has now also been experiencing left knee pain since that time. Pt reports she forces herself to go for a walk every morning, but it normally causes increased pain. Pt also notes her pain worsens over the course of the day, and then improves as she sleeps over night. Pt notes her pain is a 7/10 at worst, but that it also just stays at a 7/10 for most of the day. Pt reports she has difficulty bending or kneeling down, and walking and gardening can be very difficult. Prior Treatments and Tests X-rays - per patient: The hip looks very healthy, but there is some degeneration in the knee. Treatment Goals Patient/Caregiver Goals I want to get rid of the pain , and get back to gardening normally. Prior Functional Status Baseline Function- ADL's Independent Baseline Function- Mobility Independent Baseline Function- Gait no assistive device Baseline Function- Recreation/Hobbies Morning walks, gardening Current Functional Impairments (Reported) Functional Limitations- Recreation/ Pain during long walks, pain Hobbies kneeling while gardening PT-OP-C Subjective Start: 09/03/17 13:56 Freq: Status: Active Protocol: Document 09/24/17 12:00 DCW (Rec: 09/24/17 12:43 DCW [id number]) OP-PT Subjective Patient Comments Patient Comments My hip is a lot better so far , my knee...well, I'm not sure if it will ever be 100%, or even 98%, but it's improving. PT-OP-F Manual Assessment Start: 09/03/17 13:56 Freq: Status: Active Protocol: Document 09/03/17 12:00 DCW (Rec: 09/03/17 14:28 [facility] [id number]) Manual Assessments Soft Tissue Assessment Soft Tissue Mobility Assessment Moderate tone, tenderness 3/4 = Wincing and withdrawal with palpation of the left iliopsoas and left piriformis Joint Mobility Assessment Joint Mobility Assessment Hip joint mobility WNL Tibiofemoral mobility WNL Patellofemoral mobility: Pain and crepitus with inferior/ superior glide PT-OP-K Range of Motion Start: 09/03/17 13:56 Freq: Status: Active Protocol: Document 09/03/17 12:00 DCW (Rec: 09/03/17 14:28 [facility] [id number]) Hip Goniometric Range of Motion Hip Measured in Degrees Right Hip ROM WFL Yes Testing Position Supine Left Hip ROM WFL Yes Testing Position Supine Knee Goniometric Range of Motion Knee Measured in Degrees Right Knee ROM WFL Yes Left Knee ROM WFL Yes Patient Position Supine PT-OP-L Special Tests Start: 09/03/17 13:56 Freq: Status: Active Protocol: Document 09/03/17 12:00 DCW (Rec: 09/03/17 14:28 [facility] [id number]) Special Tests Lumbar Spine Special Tests Standing Flexion Test Results Negative Straight Leg Raise Test Results Negative Slump Test Results Negative Hip Special Tests Tl Test Results Hip flexor tightness Straight Leg Raise Test Results Negative Piriformis Test Results Left piriformis pain ALEJANDRINA Test Results Left - ipsilateral pain at lateral hip Knee Special Tests Varus- 0 Degrees Test Results Negative Valgus- 0 Degrees Test Results Negative Posterior Draw Test Results Negative Patellar Grind Test Test Results Positive left Nicol Test Test Results Negative Flexion Rotation Draw Test Results Negative Arc Compression Test Results Patellofemoral grinding/pain Anterior Draw Test Results Negative PT-OP-M Strength Start: 09/03/17 13:56 Freq: Status: Active Protocol: Document 09/03/17 12:00 DCW (Rec: 09/03/17 14:28 DCW [id number]) Hip Strength Hip Manual Muscle Testing Right Flexion (L2) 5 Normal Abduction 4+ Good+ Adduction 4+ Good+ External Rotation 4 Good Internal Rotation 5 Normal Left Flexion (L2) 4 Good Abduction 4 Good Adduction 4+ Good+ External Rotation 4+ Good+ Internal Rotation 4+ Good+ Comments Pain with left resisted internal rotation Knee Strength Knee Manual Muscle Testing Right Flexion (S2) 5 Normal Extension (L3) 5 Normal Left Flexion (S2) 4 Good Extension (L3) 4+ Good+ Comments Pain with resisted left knee flexion PT-OP-Q Treatments Start: 09/03/17 13:56 Freq: Status: Active Protocol: Document 09/24/17 12:00 DCW (Rec: 09/24/17 12:43 DCW [id number]) Cardio Equipment Recumbent Bicycle Duration (Minutes) 5 Resistance 5 Seat Position 4 Gym Equipment Shuttle Recovery Unilateral Squats Resistance 62# Shuttle Recovery Platform Stable Bilateral Squats Resistance 100# Shuttle Recovery Platform Stable Shuttle Balance 1 Details Red - Wide YURIY, Staggered Stance Therapeutic Exercises Other Exercises 2 Other Exercise Name Resisted Forward/Retro walking Side bilateral Resistance Green Equipment Used T-band 1 Other Exercise Name Resisted Side-stepping Side bilateral Resistance Green Equipment Used T-band Manual Therapy Treatment Soft Tissue Mobilization 3 Body Location tibia Mobilization Type Myofascial Release Comments Circumfrential mobilization with TKE supine & standing 2 Body Location VMO med border Mobilization Type Sustained Pressure Comments FM Joint Mobilizations 1 Joint Patellofemoral Direction Superior/Inferior Grade III Body Position Supine PT-OP-T Assessment and Plan Start: 09/03/17 13:56 Freq: Status: Active Protocol: Document 09/24/17 12:00 DCW (Rec: 09/24/17 12:43 DCW [id number]) Physical Therapy Assessment Impairments Impairments Activity Tolerance Pain Soft Tissue Mobility Strength Tone Goals Four Impairment Soft Tissue Tone 3Rd Grade Reading Teacher Goal (LTG) Left piriformis and iliopsoas tone with palpation to trace tone and tenderness 1/4 = complaint of pain LTG Duration 10/29/17 Three Impairment Joint mobility Short Term Goal (STG) Left patellofemoral joint exhibits no crepitus with inferior/superior glide STG Duration 10/01/17 Two Impairment Strength 3Rd Grade Reading Teacher Goal (LTG) Left LE MMT grossly 5/5 pain- free LTG Duration 10/29/17 One Impairment Activity Participation Short Term Goal (STG) Pt to report no increased pain during morning walk STG Duration 10/01/17 Prison Goal (LTG) Pt to report ability to kneel while gardening for 30 minutes with no pain LTG Duration 10/29/17 Assessment Summary Assessment Pt reports she will be unable to come in for her appointments for the next few weeks, but insists she will follow her HEP closely Physical Therapy Plan Frequency and Duration Frequency of Treatment 2x/Week Duration of Treatment 10 weeks Plan of Care Start Date 09/03/17 Plan of Care End Date 11/12/17 Therapeutic Interventions Therapeutic Interventions Aquatic Therapy Home Exercise Program Joint Mobilizations Manual Therapy Patient/Caregiver Education Self-Care/Home Management Soft Tissue Mobilization Taping Therapeutic Exercises Modalities Cold Pack/Ice Massage Electric Stimulation Hot Packs Ultrasound Next Visit Focus/Plan Next Note Type Treatment Note Next Visit Plan LE strengthening, stretching, manual STM with focus on VMO & glutes
--- NOTE | 2017-10-10 14:24 | PT.OTN ---
Current Diagnoses Patellofemoral disorders, left knee (10/10/17) Physical Therapy Treatment Note PT-OP-A Visit Information Start: 09/03/17 13:56 Freq: Status: Active Protocol: Document 10/10/17 13:45 DCW (Rec: 10/10/17 14:24 DCW [id number]) Out-Patient Physical Therapy Visit Information Visit Information Visit Type Treatment Note Visit Start Time 13:45 Visit Stop Time 14:30 Total Visit Minutes 45 Visit Number 7 Number of SENIOR DIRECTOR INSIGHT Visits 0 Evaluation Information Evaluation Date 09/03/17 PT-OP-B Current Condition Start: 09/03/17 13:56 Freq: Status: Active Protocol: Document 09/03/17 12:00 DCW (Rec: 09/03/17 14:28 DCW [id number]) Current Condition History of Current Condition Onset Date Worsening over past year Current Complaints Left hip pain, left knee pain History of Current Condition Pt is a 72 year old female presenting with a multi-year history of left hip pain, which used to just be minimal background pain, but now she reports it began to worsen over the past year. Additionally, pt slipped in a puddle of water walking to an airplane in December,, landing on her left knee, an has now also been experiencing left knee pain since that time. Pt reports she forces herself to go for a walk every morning, but it normally causes increased pain. Pt also notes her pain worsens over the course of the day, and then improves as she sleeps over night. Pt notes her pain is a 7/10 at worst, but that it also just stays at a 7/10 for most of the day. Pt reports she has difficulty bending or kneeling down, and walking and gardening can be very difficult. Prior Treatments and Tests X-rays - per patient: The hip looks very healthy, but there is some degeneration in the knee. Treatment Goals Patient/Caregiver Goals I want to get rid of the pain , and get back to gardening normally. Prior Functional Status Baseline Function- ADL's Independent Baseline Function- Mobility Independent Baseline Function- Gait no assistive device Baseline Function- Recreation/Hobbies Morning walks, gardening Current Functional Impairments (Reported) Functional Limitations- Recreation/ Pain during long walks, pain Hobbies kneeling while gardening PT-OP-C Subjective Start: 09/03/17 13:56 Freq: Status: Active Protocol: Document 10/10/17 13:45 DCW (Rec: 10/10/17 14:24 DCW [id number]) OP-PT Subjective Patient Comments Patient Comments Pt reports that everything is feeling a lot better, but notes her knee pain still wakes her up in the morning, but after she gets up and moves around some, she feels better. PT-OP-F Manual Assessment Start: 09/03/17 13:56 Freq: Status: Active Protocol: Document 09/03/17 12:00 DCW (Rec: 09/03/17 14:28 [facility] [id number]) Manual Assessments Soft Tissue Assessment Soft Tissue Mobility Assessment Moderate tone, tenderness 3/4 = Wincing and withdrawal with palpation of the left iliopsoas and left piriformis Joint Mobility Assessment Joint Mobility Assessment Hip joint mobility WNL Tibiofemoral mobility WNL Patellofemoral mobility: Pain and crepitus with inferior/ superior glide PT-OP-K Range of Motion Start: 09/03/17 13:56 Freq: Status: Active Protocol: Document 09/03/17 12:00 DCW (Rec: 09/03/17 14:28 [facility] [id number]) Hip Goniometric Range of Motion Hip Measured in Degrees Right Hip ROM WFL Yes Testing Position Supine Left Hip ROM WFL Yes Testing Position Supine Knee Goniometric Range of Motion Knee Measured in Degrees Right Knee ROM WFL Yes Left Knee ROM WFL Yes Patient Position Supine PT-OP-L Special Tests Start: 09/03/17 13:56 Freq: Status: Active Protocol: Document 09/03/17 12:00 DCW (Rec: 09/03/17 14:28 [facility] [id number]) Special Tests Lumbar Spine Special Tests Standing Flexion Test Results Negative Straight Leg Raise Test Results Negative Slump Test Results Negative Hip Special Tests Tl Test Results Hip flexor tightness Straight Leg Raise Test Results Negative Piriformis Test Results Left piriformis pain ALEJANDRINA Test Results Left - ipsilateral pain at lateral hip Knee Special Tests Varus- 0 Degrees Test Results Negative Valgus- 0 Degrees Test Results Negative Posterior Draw Test Results Negative Patellar Grind Test Test Results Positive left Nicol Test Test Results Negative Flexion Rotation Draw Test Results Negative Arc Compression Test Results Patellofemoral grinding/pain Anterior Draw Test Results Negative PT-OP-M Strength Start: 09/03/17 13:56 Freq: Status: Active Protocol: Document 09/03/17 12:00 DCW (Rec: 09/03/17 14:28 DCW [id number]) Hip Strength Hip Manual Muscle Testing Right Flexion (L2) 5 Normal Abduction 4+ Good+ Adduction 4+ Good+ External Rotation 4 Good Internal Rotation 5 Normal Left Flexion (L2) 4 Good Abduction 4 Good Adduction 4+ Good+ External Rotation 4+ Good+ Internal Rotation 4+ Good+ Comments Pain with left resisted internal rotation Knee Strength Knee Manual Muscle Testing Right Flexion (S2) 5 Normal Extension (L3) 5 Normal Left Flexion (S2) 4 Good Extension (L3) 4+ Good+ Comments Pain with resisted left knee flexion PT-OP-Q Treatments Start: 09/03/17 13:56 Freq: Status: Active Protocol: Document 10/10/17 13:45 DCW (Rec: 10/10/17 14:24 DCW [id number]) Cardio Equipment Recumbent Bicycle Duration (Minutes) 6 Resistance 5 Seat Position 4 Gym Equipment Shuttle Recovery Unilateral Squats Resistance 62# Shuttle Recovery Platform Stable Bilateral Squats Resistance 100# Shuttle Recovery Platform Stable Shuttle Balance 1 Details Red - Wide YURIY, Staggered Stance Therapeutic Ball 1 Exercise Details Bridging /c feet on ball Ball Size/Color Blue - 45 cm Body Position Supine Therapeutic Exercises Other Exercises 2 Other Exercise Name Resisted Forward/Retro walking Side bilateral Resistance Green Equipment Used T-band 1 Other Exercise Name Resisted Side-stepping Side bilateral Resistance Green Equipment Used T-band Manual Therapy Treatment Soft Tissue Mobilization 2 Body Location VMO med border Mobilization Type Sustained Pressure Comments FM 1 Body Location Piriformis Mobilization Type Strumming Sustained Pressure Trigger Point Release Intensity/Depth Moderate Body Position Sidelying Joint Mobilizations 1 Joint Patellofemoral Direction Superior/Inferior Grade III Body Position Supine Taping 1 Body Location L knee Treatment Focus Medial patella pull Type of Tape Kinesio Tape PT-OP-T Assessment and Plan Start: 09/03/17 13:56 Freq: Status: Active Protocol: Document 10/10/17 13:45 DCW (Rec: 10/10/17 14:24 DCW [id number]) Physical Therapy Assessment Impairments Impairments Activity Tolerance Pain Soft Tissue Mobility Strength Tone Goals Four Impairment Soft Tissue Tone Snf Goal (LTG) Left piriformis and iliopsoas tone with palpation to trace tone and tenderness 1/4 = complaint of pain LTG Duration 10/29/17 Three Impairment Joint mobility Short Term Goal (STG) Left patellofemoral joint exhibits no crepitus with inferior/superior glide STG Duration 10/01/17 Two Impairment Strength Retirement Administrator Goal (LTG) Left LE MMT grossly 5/5 pain- free LTG Duration 10/29/17 One Impairment Activity Participation Short Term Goal (STG) Pt to report no increased pain during morning walk STG Duration 10/01/17 Snf Goal (LTG) Pt to report ability to kneel while gardening for 30 minutes with no pain LTG Duration 10/29/17 Assessment Summary Assessment Pt feels she is doing well enough to stop therapy, however would prefer to not discharge, and just trial not coming to therapy for the next few weeks. Pt informed if she does not schedule any further appointments within the next month, she'll be discharged at that time. Physical Therapy Plan Frequency and Duration Frequency of Treatment 2x/Week Duration of Treatment 10 weeks Plan of Care Start Date 09/03/17 Plan of Care End Date 11/12/17 Therapeutic Interventions Therapeutic Interventions Aquatic Therapy Home Exercise Program Joint Mobilizations Manual Therapy Patient/Caregiver Education Self-Care/Home Management Soft Tissue Mobilization Taping Therapeutic Exercises Modalities Cold Pack/Ice Massage Electric Stimulation Hot Packs Ultrasound Next Visit Focus/Plan Next Note Type Treatment Note Next Visit Plan LE strengthening, stretching, manual STM with focus on VMO & glutes
--- NOTE | 2017-11-12 17:29 | PT.OPDS ---
Current Diagnoses Patellofemoral disorders, left knee (10/10/17) Provider Visit Care Team Role Provider Type Martin Prajapati MD Family Provider Physician Primary Care Provider Specialty: Internal Medicine Address: [address] [place] [address], [place], [address] Email: Lalo Velasco MD Attending Provider Physician Specialty: Orthopedics Address: [address] [place] [address], [place], [address] Email: Visit Number Visit Number 7 Discharge Summary PT-OP-B Current Condition Start: 09/03/17 13:56 Freq: Status: Active Protocol: Document 09/03/17 12:00 DCW (Rec: 09/03/17 14:28 DCW [id number]) Current Condition History of Current Condition Onset Date Worsening over past year Current Complaints Left hip pain, left knee pain History of Current Condition Pt is a 72 year old female presenting with a multi-year history of left hip pain, which used to just be minimal background pain, but now she reports it began to worsen over the past year. Additionally, pt slipped in a puddle of water walking to an airplane in December,, landing on her left knee, an has now also been experiencing left knee pain since that time. Pt reports she forces herself to go for a walk every morning, but it normally causes increased pain. Pt also notes her pain worsens over the course of the day, and then improves as she sleeps over night. Pt notes her pain is a 7/10 at worst, but that it also just stays at a 7/10 for most of the day. Pt reports she has difficulty bending or kneeling down, and walking and gardening can be very difficult. Prior Treatments and Tests X-rays - per patient: The hip looks very healthy, but there is some degeneration in the knee. Treatment Goals Patient/Caregiver Goals I want to get rid of the pain , and get back to gardening normally. Prior Functional Status Baseline Function- ADL's Independent Baseline Function- Mobility Independent Baseline Function- Gait no assistive device Baseline Function- Recreation/Hobbies Morning walks, gardening Current Functional Impairments (Reported) Functional Limitations- Recreation/ Pain during long walks, pain Hobbies kneeling while gardening PT-OP-F Manual Assessment Start: 09/03/17 13:56 Freq: Status: Active Protocol: Document 09/03/17 12:00 DCW (Rec: 09/03/17 14:28 DCW [id number]) Manual Assessments Soft Tissue Assessment Soft Tissue Mobility Assessment Moderate tone, tenderness 3/4 = Wincing and withdrawal with palpation of the left iliopsoas and left piriformis Joint Mobility Assessment Joint Mobility Assessment Hip joint mobility WNL Tibiofemoral mobility WNL Patellofemoral mobility: Pain and crepitus with inferior/ superior glide PT-OP-K Range of Motion Start: 09/03/17 13:56 Freq: Status: Active Protocol: Document 09/03/17 12:00 DCW (Rec: 09/03/17 14:28 DCW [id number]) Hip Goniometric Range of Motion Hip Measured in Degrees Right Hip ROM WFL Yes Testing Position Supine Left Hip ROM WFL Yes Testing Position Supine Knee Goniometric Range of Motion Knee Measured in Degrees Right Knee ROM WFL Yes Left Knee ROM WFL Yes Patient Position Supine PT-OP-L Special Tests Start: 09/03/17 13:56 Freq: Status: Active Protocol: Document 09/03/17 12:00 DCW (Rec: 09/03/17 14:28 [facility] [id number]) Special Tests Lumbar Spine Special Tests Standing Flexion Test Results Negative Straight Leg Raise Test Results Negative Slump Test Results Negative Hip Special Tests Tl Test Results Hip flexor tightness Straight Leg Raise Test Results Negative Piriformis Test Results Left piriformis pain ALEJANDRINA Test Results Left - ipsilateral pain at lateral hip Knee Special Tests Varus- 0 Degrees Test Results Negative Valgus- 0 Degrees Test Results Negative Posterior Draw Test Results Negative Patellar Grind Test Test Results Positive left Nicol Test Test Results Negative Flexion Rotation Draw Test Results Negative Arc Compression Test Results Patellofemoral grinding/pain Anterior Draw Test Results Negative PT-OP-M Strength Start: 09/03/17 13:56 Freq: Status: Active Protocol: Document 09/03/17 12:00 DCW (Rec: 09/03/17 14:28 DCW [id number]) Hip Strength Hip Manual Muscle Testing Right Flexion (L2) 5 Normal Abduction 4+ Good+ Adduction 4+ Good+ External Rotation 4 Good Internal Rotation 5 Normal Left Flexion (L2) 4 Good Abduction 4 Good Adduction 4+ Good+ External Rotation 4+ Good+ Internal Rotation 4+ Good+ Comments Pain with left resisted internal rotation Knee Strength Knee Manual Muscle Testing Right Flexion (S2) 5 Normal Extension (L3) 5 Normal Left Flexion (S2) 4 Good Extension (L3) 4+ Good+ Comments Pain with resisted left knee flexion PT-OP-T Assessment and Plan Start: 09/03/17 13:56 Freq: Status: Active Protocol: Document 11/12/17 17:27 DCW (Rec: 11/12/17 17:29 DCW [id number]) Physical Therapy Assessment Impairments Impairments Activity Tolerance Pain Soft Tissue Mobility Strength Tone Goals Four Impairment Soft Tissue Tone Caterer Helper Goal (LTG) Left piriformis and iliopsoas tone with palpation to trace tone and tenderness 1/4 = complaint of pain LTG Duration 10/29/17 - Improving Three Impairment Joint mobility Short Term Goal (STG) Left patellofemoral joint exhibits no crepitus with inferior/superior glide STG Duration 10/01/17 Two Impairment Strength Caterer Helper Goal (LTG) Left LE MMT grossly 5/5 pain- free LTG Duration 10/29/17 - Improving One Impairment Activity Participation Short Term Goal (STG) Pt to report no increased pain during morning walk STG Duration 10/01/17 Care Home Goal (LTG) Pt to report ability to kneel while gardening for 30 minutes with no pain LTG Duration 10/29/17 Assessment Summary Assessment At her last visit one month ago, pt felt she was doing well enough to stop therapy, however wanted her chart to remain open in case she needed to return. She was informed that if she did not schedule and further appointments within the next month, she would be discharged. Pt has now not been seen in more than one month, and will be discharged from skilled therapy at this time. Physical Therapy Plan Discharge Physical Therapy Discharge Reasons Patient Request Next Visit Focus/Plan Next Note Type Discharge Summary
== END 2017-11-21 11:25 ==
LOC: PHYS 13:45
PROVIDERS: Family Provider Internal Medicine; PCP Internal Medicine; Visit Provider Orthopaedic Surgery
DX: M22.2X2 Patellofemoral disorders, left knee (principal)
CPT/HCPCS: 97110; 97112; 97140; 97161; 97530

== ENCOUNTER → 2017-12-04 13:10 | Outpatient (CLI) | payer OTHER, SELFPAY ==
[2017-12-04 14:02] LABS: Add Manual Diff / Slide Review NO; Basophils Percent Auto 0.3 % (0-2); Eosinophils Percent Auto 8.4 % (2-4); Hematocrit 38.4 % (36-46); Hemoglobin 13.1 g/dL (12.0-16.0); Mean Corpuscular Hemoglobin 32.3 PG (26-34); Mean Corpuscular Volume 94.9 fL (80-100); Monocytes Percent Auto 7.2 % (3-14); Neutrophils Absolute Auto 3600 /uL (3000-5900); Neutrophils Percent Auto 54.1 % (50-75); Platelet Count 314 X10^3/uL (150-400); Red Blood Cell Count 4.05 X10^6/uL (4.0-5.2); Red Cell Distribution Width 13.4 % (11.6-14.8); White Blood Cell Count 6.7 X10^3/uL (4.5-11.0)
[2017-12-04 14:13] LABS: Alanine Aminotransferase 30 IU/L (9-52); Albumin 4.1 g/dL (3.5-5.0); Albumin Globulin Ratio 1.3 (1.0-2.8); Alkaline Phosphatase 67 U/L (38-126); Aspartate Aminotransferase 23 IU/L (14-36); Bilirubin Total 0.3 mg/dL (0.2-1.3); Blood Urea Nitrogen 16 mg/dL (7-17); Calcium 9.1 mg/dL (8.4-10.2); Carbon Dioxide 30 mmol/L (22-32); Chloride 106 mmol/L (98-107); Estimated Glomerular Filt Rate > 60.0 mL/min (>60); Globulin 3.2 g/dL (1.7-4.1); Glucose 88 mg/dL (80-110); HEMOLYSIS < 15 (0-50); Potassium 3.9 mmol/L (3.4-5.1); Sodium 144 mmol/L (137-145); Total Protein 7.3 g/dL (6.3-8.2)
[2017-12-04 15:33] LABS: Vitamin D 25 Hydroxy (D3) 46.7 ng/mL (30.0-100.0)
[2017-12-06 15:41] LABS: Cancer Antigen 27.29 19 U/mL (< 38)
== END ==
PROVIDERS: Family Provider Internal Medicine; PCP Internal Medicine; Visit Provider Nurse Practitioner Gerontology
DX: Z85.3 Personal history of malignant neoplasm of breast (principal); Z79.899 Other long term (current) drug therapy
CPT/HCPCS: 36415; 80053; 82306; 85025; 86300

== ENCOUNTER 2017-12-11 13:48 | Oncology outpatient (ONC) | payer OTHER, SELFPAY ==
--- NOTE | 2017-12-11 12:46 | P.PNONC_ITS ---
PN -Subjective Interval history: The patient is a 72 year old Female who is being seen in the clinic 12/11/2017 for : 1. Stage II breast cancer, now entering her ninth year of followup. This was a 1.4 cm invasive lobular carcinoma with 1 positive sentinel node. 2. Lumpectomy and adjuvant radiation therapy followed by 6 months of CMF. 3. The tumor was ER and [place] positive, HER2/rupal negative. 4. She started an aromatase inhibitor in 11/2008 and has elected to continue on beyond 5 years, plan is to continue for 10 years, discontinuing the medication 2018. 5. Adjuvant Zometa was used per the [facility] protocol. 6. History of Sjogren syndrome. 7. History of shoulder arthroscopy, jaw pain, hysterectomy, oophorectomy, left lumpectomy, adenectomy, and pneumonia in 2011. The patient reports overall she is feeling quite well and nothing new to report today. Tolerating her anastrozole which she has been taking since 2008. She will plan to stop taking after she has completed 10 years in 2019. She is not having any hot flashes. No musculoskeletal pain. She had her annual screening mammogram 05/08/2017, no evidence of malignancy, recommendation is to repeat in one year. She received her annual Zometa previous visit September 25, 2017 for osteopenia. Most recent bone density screen was 2015. Past Medical History The patient's past medical history is significant for: 6. History of Sjogren syndrome. 7. History of shoulder arthroscopy, jaw pain, hysterectomy, oophorectomy, left lumpectomy, adenectomy, and pneumonia in 2011. 8. Osteopenia now on yearly zometa Past Surgical History The patient's past surgical history includes: 7. History of shoulder arthroscopy, jaw pain, hysterectomy, oophorectomy, left lumpectomy, adenectomy, and pneumonia in 2011. Home Medications and Allergies Home Medications Medication Instructions Recorded Confirmed Type calcium carbonate-vitamin D3 mg PO QDAY #0 05/17/12 History [Oyster Shell Calcium-Vit D3] anastrozole 1 mg PO Q DAY #30 tab 05/09/17 Rx levothyroxine [Synthroid] 75 mcg PO QAM #90 tab 12/11/17 Rx Allergies Allergy/AdvReac Type Severity Reaction Status Date / Time penicillin G [PENICILLIN G] AdvReac Intermediate SWELLING, Unverified 06/13/17 12:57 ITCHING Exam - Constitutional positive no acute distress, positive average body habitus - Routine HEENT Exam Eye: Present: conjunctivae pink. Absent: conjunctival icterus, scleral injection - Routine Neck Exam Present: supple. Absent: lymphadenopathy - Routine Chest/Breast/Axilla Exam Chest wall exam standard: Absent: tenderness, mass Breast: Absent: tenderness, mass Axillae: Absent: lymphadenopathy, mass, tenderness - Routine Respiratory Exam Present: Clear to auscultation bilaterally. Absent: rales, rhonchi, wheezes - Routine Cardiovascular Exam Present: RRR, S1, S2. Absent: murmur, gallop, rubs, JVD - Routine Abdominal Exam Present: soft, normoactive bowel sounds. Absent: tenderness, distended, organomegaly, mass - Routine Extremities Exam Absent: edema, calf tenderness - Routine Skin Exam Present: intact, normal turgor. Absent: petechiae, rash - Routine Neurological Exam Present: alert, oriented X3 - Routine Psychiatric Exam Present: normal affect Results - Imaging Additional studies: Procedures Colonoscopy (03/24/13) Assessment and Plan (1) Breast cancer Current visit: Yes Status: Acute 72-year-old female who carries a diagnosis of stage II invasive lobular carcinoma with 1 positive sentinel node. Now entering her 10th year of follow- up. Reassuringly on exam today no clinical signs or symptoms to suggest disease recurrence. CBC, CMP unremarkable. Cont anastrozole. Return to clinic in 6 months time for provider visit CBC, CMP. - Time Spent with Patient 30 mins
[2017-12-11 14:37] VITALS: BP 133/75; PULSE 71; RESP 18; TEMP 36.2; O2SAT 97
== END 2017-12-12 12:00 ==
LOC: ONC 13:53
PROVIDERS: Family Provider Internal Medicine; PCP Internal Medicine; Visit Provider Nurse Practitioner Gerontology
DX: C50.912 Malignant neoplasm of unspecified site of left female breast (principal); Z17.0 Estrogen receptor positive status [ER+]; Z79.811 Long term (current) use of aromatase inhibitors
CPT/HCPCS: 99214

== ENCOUNTER → 2018-03-18 10:05 | Outpatient (CLI) | payer OTHER, SELFPAY ==
--- NOTE | 2018-03-18 | DI.RAD.S_ITS ---
PROCEDURE: XR HIP W PEL IF DONE RT 2V INDICATIONS: PAIN IN RT HIP AND LOW BACK TECHNIQUE: AP pelvis with lateral view(s) of the right hip(s). COMPARISON: [facility], , [id number] W PEL IF PERFORMED, 01/04/2017, 15:24. FINDINGS: Bones: No fractures or dislocations. Pelvic ring appears intact. No suspicious bony lesions. Soft tissues: The visualized bowel gas pattern is normal. No suspicious soft tissue calcifications. IMPRESSION: Mild symmetric hip joint osteoarthritis, no change from January 2017, no trauma found. Dictated by: Luis M Camara M.D. on 03/18/2018 at 11:18 Approved by: Luis M Camara M.D. on 03/18/2018 at 11:19
--- NOTE | 2018-03-18 | DI.RAD.S_ITS ---
PROCEDURE: XR LUMBAR SPINE 2-3V INDICATIONS: PAIN IN RT HIP AND LOW BACK TECHNIQUE: 3 views of the lumbar spine were acquired. COMPARISON: None. FINDINGS: Bones: 5 [id number] vertebrae are present. There is normal bony alignment. No vertebral body compression fractures. No suspicious bony lesions. Degenerative disc disease becomes progressively more prominent from L3 inferiorly, and is most pronounced at L5-S1 where facet osteoarthritis is moderate to moderately severe also. Soft tissues: Overlying bowel gas pattern is normal. No suspicious soft tissue calcifications. IMPRESSION: No compression fractures seen, moderate to moderately severe degenerative disc disease and facet osteoarthritis is seen over the lumbosacral spine progressively more prominent from L3-S1. Spinal and foraminal stenosis likely is present, MR scanning may be warranted. Dictated by: Luis M Camara M.D. on 03/18/2018 at 12:28 Approved by: Luis M Camara M.D. on 03/18/2018 at 12:35
== END ==
PROVIDERS: Family Provider Internal Medicine; PCP Internal Medicine; Visit Provider Student in an Organized Health Care Education/Training Program
DX: M25.551 Pain in right hip (principal); M54.5 Low back pain; M16.0 Bilateral primary osteoarthritis of hip; M51.36 Other intervertebral disc degeneration, lumbar region; M51.37 Other intervertebral disc degeneration, lumbosacral region; M47.816 Spondylosis without myelopathy or radiculopathy, lumbar region; M47.817 Spondylosis without myelopathy or radiculopathy, lumbosacral region
CPT/HCPCS: 72100; 73502

== ENCOUNTER → 2018-05-09 09:43 | Outpatient (CLI) | payer OTHER, SELFPAY ==
--- NOTE | 2018-05-09 | DI.MG.S_ITS ---
BILATERAL DIGITAL SCREENING MAMMOGRAM 3D/2D WITH CAD: 05/09/2018 CLINICAL: Routine screening. Personal history of left breast cancer. Family history of breast cancer. Comparison is made to exams dated: 05/08/2017 mammogram, 04/28/2016 mammogram, 05/10/2015 mammogram, and 04/27/2015 mammogram - [facility]. There are scattered fibroglandular elements in both breasts. Current study was also evaluated with a Computer Aided Detection (CAD) system. There are benign post operative findings in the left breast. There also are benign calcifications in both breasts. No significant masses, calcifications, or other findings are seen in either breast. There has been no significant interval change. IMPRESSION: There is no mammographic evidence of malignancy. A 1 year screening mammogram is recommended. This exam was interpreted at Station ID: [id number]. NOTE: For mammograms, a report in lay terms will be sent to the patient. Approximately 15% of breast malignancies will not be visualized mammographically. In the management of a palpable breast mass, a negative mammogram must not discourage biopsy of a clinically suspicious lesion. Electronically Signed By: Tyler hess/owen:05/09/2018 12:30:48 copy to: Jim Davis letter sent: Normal Exam ACR BI-RADS Category 2: Benign Finding(s) [id number]
== END ==
PROVIDERS: PCP Internal Medicine; Visit Provider Internal Medicine
DX: Z12.31 Encounter for screening mammogram for malignant neoplasm of breast (principal); Z85.3 Personal history of malignant neoplasm of breast; Z80.3 Family history of malignant neoplasm of breast
CPT/HCPCS: 77063; 77067

== ENCOUNTER → 2018-05-31 13:12 | Outpatient (CLI) | payer OTHER, SELFPAY ==
--- NOTE | 2018-05-31 | DI.RAD.S_ITS ---
This blank DEXA report has been sent in error by the PACS system. The correct and complete report will be forthcoming in 1-2 days. Thank you for your patience and understanding. Dictated by: Niall Rouse M.D. on 05/31/2018 at 14:50 Approved by: Niall Rouse M.D. on 05/31/2018 at 14:51
== END ==
PROVIDERS: PCP Internal Medicine; Visit Provider Nurse Practitioner Gerontology
DX: M85.851 Other specified disorders of bone density and structure, right thigh (principal); Z78.0 Asymptomatic menopausal state; C50.919 Malignant neoplasm of unspecified site of unspecified female breast; E07.9 Disorder of thyroid, unspecified; Z90.722 Acquired absence of ovaries, bilateral; Z87.891 Personal history of nicotine dependence
CPT/HCPCS: 77080

== ENCOUNTER → 2018-06-06 10:58 | Outpatient (CLI) | payer OTHER, SELFPAY ==
[2018-06-06 12:04] LABS: Add Manual Diff / Slide Review NO; Basophils Absolute Auto 0 /uL (0-100); Basophils Percent Auto 0.3 % (0-2); Eosinophils Absolute Auto 300 /uL (0-450); Eosinophils Percent Auto 4.5 % (2-4); Hematocrit 40.3 % (36-46); Hemoglobin 13.3 g/dL (12.0-16.0); Lymphocytes Absolute Auto 1600 /uL (1100-4500); Lymphocytes Percent Auto 25.5 % (25-40); Mean Corpuscular HGB Conc 33.1 % (30-36); Mean Corpuscular Hemoglobin 31.6 PG (26-34); Mean Corpuscular Volume 95.5 fL (80-100); Monocytes Absolute Auto 500 /uL (0-900); Neutrophils Absolute Auto 3900 /uL (1500-7000); Neutrophils Percent Auto 61.7 % (50-75); Platelet Count 313 X10^3/uL (150-400); Red Blood Cell Count 4.21 X10^6/uL (4.0-5.2); White Blood Cell Count 6.4 X10^3/uL (4.5-11.0)
[2018-06-06 13:19] LABS: Alanine Aminotransferase 28 IU/L (9-52); Albumin 4.2 g/dL (3.5-5.0); Albumin Globulin Ratio 1.4 (1.0-2.8); Alkaline Phosphatase 68 U/L (38-126); Aspartate Aminotransferase 21 IU/L (14-36); Bilirubin Total 0.3 mg/dL (0.2-1.3); Blood Urea Nitrogen 20 mg/dL (7-17); Calcium 9.4 mg/dL (8.4-10.2); Carbon Dioxide 25 mmol/L (22-32); Chloride 106 mmol/L (98-107); Estimated Glomerular Filt Rate > 60.0 mL/min (>60); Globulin 2.9 g/dL (1.7-4.1); Glucose 105 mg/dL (80-110); HEMOLYSIS < 15 (0-50); Potassium 4.7 mmol/L (3.4-5.1); Sodium 138 mmol/L (137-145); Total Protein 7.1 g/dL (6.3-8.2)
[2018-06-08 15:06] LABS: Cancer Antigen 27.29 20 U/mL (< 38)
== END ==
PROVIDERS: PCP Internal Medicine
DX: C50.919 Malignant neoplasm of unspecified site of unspecified female breast (principal)
CPT/HCPCS: 36415; 80053; 84443; 85025; 86300

== ENCOUNTER → 2018-12-03 15:11 | Outpatient (CLI) | payer OTHER, SELFPAY ==
[2018-12-03 16:51] LABS: BUN Creatinine Ratio 22.5 (6-22); Blood Urea Nitrogen 18 mg/dL (7-17); Calcium 9.6 mg/dL (8.4-10.2); Carbon Dioxide 31 mmol/L (22-32); Chloride 102 mmol/L (98-107); Cholesterol 236 mg/dL (140-199); Estimated Glomerular Filt Rate > 60.0 mL/min (>60); Glucose 95 mg/dL (80-110); HDL Cholesterol 79 mg/dL (40-60); HEMOLYSIS < 15 (0-50); LDL Cholesterol Calculated 125 mg/dL (<100); Sodium 140 mmol/L (137-145); Triglycerides 158 mg/dL (35-150)
[2018-12-03 17:05] LABS: Vitamin D 25 Hydroxy (D3) 36.9 ng/mL (30.0-100.0)
[2018-12-03 17:17] LABS: TSH w/ Reflex to FT4 1.43 uIU/mL (0.47-4.68)
== END ==
PROVIDERS: PCP Internal Medicine; Visit Provider Internal Medicine
DX: E03.9 Hypothyroidism, unspecified (principal); M85.80 Other specified disorders of bone density and structure, unspecified site; Z13.220 Encounter for screening for lipoid disorders
CPT/HCPCS: 36415; 80048; 80061; 82306; 84443

== ENCOUNTER 2019-03-24 11:38 | Emergency (ER) | payer MEDICARE, SELFPAY ==
[2019-03-24] VITALS (15 sets, daily range): BP systolic 115–151; BP diastolic 60–91; PULSE 81–106; RESP 18–28; TEMP 37.2; O2SAT 91–99; BMI 23.0
--- NOTE | 2019-03-24 11:47 | ED.CHESTPAIN ---
HPI - Chest Pain General Chief Complaint: Chest Pain Stated Complaint: Severe SOB, Pressure on Lt Side of Chest Time Seen by Provider: 03/24/19 11:47 Source: patient and old records reviewed Mode of arrival: Ambulatory Limitations: no limitations History of Present Illness HPI narrative: This is a 73-year-old female who comes to the emergency department with complaint of chest pain and shortness of breath. Patient states it really started about 4 5 days ago on Sunday. She was up in [place] there's lot of snow she tried to clean off her car and started to have sensation of shortness of breath and chest pressure. She had a quit. Patient states she has continued to have chest pressure with exertion she has felt short of breath most of the time but exertion definitely worsens her symptoms. Her maximum chest pain or pressure has been 10/10 here in the emergency department she was 5/10 and after being placed on oxygen is 2/10. She feels like there is a weight on her chest. She denies any lightheadedness or syncope. She denies any radiation. No swelling in her extremities. No nausea, no vomiting, chills or diaphoresis. No cough cold or congestion. She denies any issues with bowel movements or urination. She takes levothyroxine. She has had appendectomy and had a lumpectomy as well as node removal for breast cancer followed by chemo and radiation about 10 years ago. She states she has had a stress test probably greater than 10 years ago. She quit smoking tobacco about 20 years ago and had 30 pack year history. Occasional alcohol no illicit. Dr. Sevilla is her primary care. No cardiac, embolic or pulmonary history in her family. Related Data Previous Rx's Medication Instructions Recorded levothyroxine [Synthroid] 75 mcg PO QAM #90 tab 03/21/18 Allergies Allergy/AdvReac Type Severity Reaction Status Date / Time penicillin G [PENICILLIN G] AdvReac Intermediate SWELLING, Verified 03/24/19 12:01 ITCHING Review of Systems Review of Systems ROS Unobtainable: All systems reviewed & are unremarkable except as noted in HPI and below Patient History Medical History (Updated 03/24/19 @ 13:05 by Yaz Camilo DO) Hypothyroid (Acute) Surgical History (Updated 03/24/19 @ 12:09 by Yaz Camilo DO) H/O lumpectomy (Acute) Hx of appendectomy (Acute) Social History Smoking Status: Former smoker (30 years, quit 20 years ago.) Smoking Status: Former smoker (30 years, quit 20 years ago.) tobacco type: cigarettes alcohol intake frequency: holidays/special occasions only Substance Use Type: does not use Exam Narrative Exam Narrative: GENERAL: Alert and oriented x three, thin, well-appearing female in mild distress. HEENT: Head normocephalic, atraumatic, EOMI, pupils reactive, face symmetric, moist mucous membranes NECK: Supple, full range of motion CARDIOVASCULAR: Regular rate and rhythm without murmurs, rubs or gallops. No rashes or skin changes. On reproducible chest pain. RESPIRATORY: Breath sounds equal bilaterally, no wheezes rales or rhonchi. ABDOMEN: Soft, nontender. Normoactive bowel sounds all 4 quadrants. No guarding or rebound, rigidity, no mass : No CVA tenderness EXTREMITIES: Normal range of motion, no edema. 2+ pulses bilateral lower extremities. Neurovascularly intact NEUROLOGICAL: Cranial nerves II through XII grossly intact. Moving all extremities SKIN: Warm, dry, no petechiae, no rashes or lesions. Initial Vital Signs Initial Vital Signs: Vital Signs Temperature 98.9 F 03/24/19 11:41 Pulse Rate 106 H 03/24/19 11:41 Respiratory Rate 24 03/24/19 11:41 Blood Pressure 151/74 H 03/24/19 11:41 Pulse Oximetry 93 03/24/19 11:41 Scores HEART Score Heart Score history: Highly Suspicious Heart Score EKG: Non-Specific repolarization disturbance Heart Score Age: > or = 65 years old Heart Score risk factors: No known risk factors Course Orders Ordered: ED Orders 03/24/19 11:47 XR chest 1V Stat EKG-12 Lead Stat 03/24/19 11:48 D Dimer Stat 03/24/19 11:52 B Type Natriuretic Peptide Stat Complete Blood Count AUTO DIFF Stat Comprehensive Metabolic Panel Stat Lipase Stat Partial Thromboplastin Time Stat Prothrombin Time INR Stat TSH [Thyroid Stimulating Hormone] Stat Troponin & CK Cardiac Panel Stat 03/24/19 12:43 CT angio chest PE protocol Stat 03/24/19 19:00 PTT [Partial Thromboplastin Time] Stat Heparin Sodium/Dextrose (Heparin Drip) 25,000 unit in 500 mls @ 21.228 mls/hr IV CONT AMBROSE; Protocol Last Admin: 03/24/19 13:03 Dose: 18 units/kg/hr, 21.228 mls/hr Documented by: KATHARINE Nitroglycerin (Nitrostat) 0.4 mg SL [id number] PRN PRN Reason: Chest Pain Last Admin: 03/24/19 12:15 Dose: 0.4 mg Documented by: Admin: 03/24/19 12:04 Dose: 0.4 mg Documented by: KATHARINE Discontinued Medications Aspirin (Aspirin Chew) 324 mg PO NOW ONE Stop: 03/24/19 11:56 Last Admin: 03/24/19 12:02 Dose: 324 mg Documented by: KATHARINE Heparin Sodium (Porcine) (Heparin) 7,500 unit IV NOW ONE Stop: 03/24/19 12:58 Last Admin: 03/24/19 13:03 Dose: 7,500 unit Documented by: KATHARINE Vital Signs Vital signs: Vital Signs - 8 hr 03/24/19 11:41 03/24/19 11:45 03/24/19 12:00 Temperature 98.9 F Pulse Rate 106 H 102 H 98 H Respiratory Rate 24 28 H 22 Blood Pressure 151/74 H Blood Pressure [Left Arm] 138/68 Pulse Oximetry 93 91 99 03/24/19 12:04 03/24/19 12:05 03/24/19 12:14 Temperature Pulse Rate 94 H 100 H Respiratory Rate 22 22 Blood Pressure 136/68 Blood Pressure [Left Arm] 133/65 121/72 Pulse Oximetry 99 98 03/24/19 12:15 03/24/19 12:30 03/24/19 12:50 Temperature Pulse Rate 100 H 89 100 H Respiratory Rate 18 22 Blood Pressure 121/72 Blood Pressure [Left Arm] 115/67 118/61 Pulse Oximetry 96 96 03/24/19 13:15 03/24/19 13:32 03/24/19 14:00 Temperature Pulse Rate 88 88 82 Respiratory Rate 22 19 Blood Pressure Blood Pressure [Left Arm] 117/60 136/64 131/77 Pulse Oximetry 95 94 96 03/24/19 14:30 03/24/19 15:15 03/24/19 16:00 Temperature Pulse Rate 84 81 88 Respiratory Rate 22 19 22 Blood Pressure Blood Pressure [Left Arm] 125/91 H 125/67 124/69 Pulse Oximetry 97 97 97 MDM - Chest Pain Lab Data Attestation: I reviewed the patient's lab results. Result diagrams: 03/24/19 11:52 03/24/19 11:52 Labs: Lab Results 03/24/19 03/24/19 03/24/19 Range/Units 11:48 11:52 11:52 WBC 11.5 H (4.5-11.0) X10^3/uL RBC 4.45 (4.0-5.2) X10^6/uL Hgb 14.1 (12.0-16.0) g/dL Hct 41.5 (36-46) % MCV 93.2 (80-100) fL MCH 31.6 (26-34) PG MCHC 33.9 (30-36) % RDW 13.5 (11.6-14.8) % Plt Count 284 (150-400) X10^3/uL Neut % (Auto) 74.4 (50-75) % Lymph % (Auto) 15.1 L (25-40) % [place] % (Auto) 6.8 (3-14) % Eos % (Auto) 2.9 (2-4) % Baso % (Auto) 0.8 (0-2) % Neut # (Auto) 8600 H (1794-6545) /uL Lymph # (Auto) 1700 (2205-7316) /uL [place] # (Auto) 800 (0-900) /uL Eos # (Auto) 300 (0-450) /uL Baso # (Auto) 100 (0-100) /uL PT 11.7 (10.1-12.7) SECONDS INR 1.0 (0.9-1.3) APTT 29 (26.4-36.2) SECONDS D-Dimer 4411 H (<230) ng/mL Sodium (137-145) mmol/L Potassium (3.4-5.1) mmol/L Chloride (98-107) mmol/L Carbon Dioxide (22-32) mmol/L BUN (7-17) mg/dL Creatinine (0.52-1.04) mg/dL Estimated GFR (>60) mL/min BUN/Creatinine Ratio (6-22) Glucose (80-110) mg/dL Calcium (8.4-10.2) mg/dL Total Bilirubin (0.2-1.3) mg/dL AST (14-36) IU/L ALT (<35) IU/L Alkaline Phosphatase (38-126) U/L Total Creatine Kinase (30-135) U/L CK-MB (CK-2) CK-MB (CK-2) Rel Index Troponin I (0.01-0.034) ng/mL B-Natriuretic Peptide (<100) Total Protein (6.3-8.2) g/dL Albumin (3.5-5.0) g/dL Globulin (1.7-4.1) g/dL Albumin/Globulin Ratio (1.0-2.8) Lipase (23-300) U/L TSH (0.47-4.68) uIU/mL 03/24/19 03/24/19 03/24/19 Range/Units 11:52 11:52 11:52 WBC (4.5-11.0) X10^3/uL RBC (4.0-5.2) X10^6/uL Hgb (12.0-16.0) g/dL Hct (36-46) % MCV (80-100) fL MCH (26-34) PG MCHC (30-36) % RDW (11.6-14.8) % Plt Count (150-400) X10^3/uL Neut % (Auto) (50-75) % Lymph % (Auto) (25-40) % [place] % (Auto) (3-14) % Eos % (Auto) (2-4) % Baso % (Auto) (0-2) % Neut # (Auto) (3722-2355) /uL Lymph # (Auto) (8084-5323) /uL [place] # (Auto) (0-900) /uL Eos # (Auto) (0-450) /uL Baso # (Auto) (0-100) /uL PT (10.1-12.7) SECONDS INR (0.9-1.3) APTT (26.4-36.2) SECONDS D-Dimer (<230) ng/mL Sodium 142 (137-145) mmol/L Potassium 4.9 (3.4-5.1) mmol/L Chloride 106 (98-107) mmol/L Carbon Dioxide 25 (22-32) mmol/L BUN 18 H (7-17) mg/dL Creatinine 0.70 (0.52-1.04) mg/dL Estimated GFR > 60.0 (>60) mL/min BUN/Creatinine Ratio 25.7 H (6-22) Glucose 88 (80-110) mg/dL Calcium 10.0 (8.4-10.2) mg/dL Total Bilirubin 1.2 (0.2-1.3) mg/dL AST 43 H (14-36) IU/L ALT 15 (<35) IU/L Alkaline Phosphatase 84 (38-126) U/L Total Creatine Kinase 53 (30-135) U/L CK-MB (CK-2) TNP CK-MB (CK-2) Rel Index TNP Troponin I 0.028 (0.01-0.034) ng/mL B-Natriuretic Peptide < 100 (<100) Total Protein 9.1 H (6.3-8.2) g/dL Albumin 5.0 (3.5-5.0) g/dL Globulin 4.1 (1.7-4.1) g/dL Albumin/Globulin Ratio 1.2 (1.0-2.8) Lipase 64 (23-300) U/L TSH 3.20 (0.47-4.68) uIU/mL Imaging Data Chest x-ray: Radiologist's Impression: [address] [address] XRay Report Signed Patient: Ev Regalado EMR#: [id number] : 7Acct:[id number] Age/Sex: 73 / FDate of Service: 03/24/19 Loc: ED Accession Number: [id number] Procedure: XR chest 1V Ordering Provider: Yaz Camilo D.O. PROCEDURE: XR CHEST 1V INDICATIONS: chest pain TECHNIQUE: One view of the chest was acquired. COMPARISON: [facility], CHEST 2 VIEW, 06/09/2011, 12:12. [facility], CHEST 2 VIEW, 09/08/2010, 9:14. FINDINGS: Surgical changes and devices: Left breast and axilla surgical clips. Lungs and pleura: Lungs are clear. No pleural effusions or pneumothorax. Mediastinum: Mediastinal contours appear normal. Heart size is normal. Bones and chest wall: No suspicious bony lesions. Overlying soft tissues appear unremarkable. IMPRESSION: Presumed prior left breast carcinoma surgery, no metastatic disease or source of chest pain found. Dictated by: Luis M Camara M.D. on 03/24/2019 at 12:06 Approved by: Luis M Camara M.D. on 03/24/2019 at 12:07 CT scan - chest: Radiologist's Impression: [address] [address] [address] Scan Report Signed Patient: Ev Regalado EMR#: [id number] : 7Acct:[id number] Age/Sex: 73 / FDate of Service: 03/24/19 Loc: ED Accession Number: [id number] Procedure: CT angio chest PE protocol Ordering Provider: Yaz Camilo D.O. PROCEDURE: CT ANGIO CHEST PE PROTOCOL INDICATIONS: chest pain, sob TECHNIQUE: After the administration of intravenous contrast, 2 mm thick sections acquired from the pulmonary apices to the posterior costophrenic angles. 3-dimensional maximum intensity projection (MIP) coronal and sagittal reformats were then acquired through the thorax. For radiation dose reduction, the following was used: automated exposure control, adjustment of mA and/or kV according to patient size. COMPARISON: None. FINDINGS: Image quality: Excellent. Pulmonary arteries: Pulmonary arteries are normal in size, but demonstrate bilateral definite intraluminal filling defects to diagnostic of central and peripheral pulmonary embolism. The right main pulmonary artery and its branch point peripherally contains a large thrombus, measuring up to approximately 1.8 cm in maximal diameter. A thin band of thrombus crosses the midline and extends into the left main pulmonary artery to a much lesser degree emboli into the basilar branches of the pulmonary arteries bilaterally are present. There is mild edema within the right lower lobe lung parenchyma, most likely representing a mild degree of pulmonary ischemic injury to that portion of the lung parenchyma. Lungs and pleura: Lungs are clear. No pleural effusions or pneumothorax. Central and peripheral airways are patent. Mediastinum: Heart size is normal, without pericardial effusion. No mediastinal or hilar adenopathy. Thoracic aorta is normal in caliber and enhancement. Esophagus is normal in caliber, without hiatal hernia. Bones and chest wall: No suspicious bony lesions. Ribs and thoracic spine appear intact throughout. Thyroid gland appears normal where well seen. No axillary or supraclavicular adenopathy. Abdomen: Visualized upper abdominal solid organs appear normal in the early arterial phase of enhancement. IMPRESSION: Bilateral acute pulmonary emboli, right greater than left, with mild ischemic injury to the portion of the mid right lung posteriorly, within the right lower lobe. No right-sided cardiac chamber enlargement is present. Findings immediately called to the emergency room physician caring for the patient. Dictated by: Luis M Camara M.D. on 03/24/2019 at 13:01 Approved by: Luis M Camara M.D. on 03/24/2019 at 13:06 ECG Data Attestation: I personally reviewed and interpreted this ECG as follows: Prior ECG tracings: not available for review Interpretation: Sinus tachycardia, rate of 106, pr of 191, qrs of 82, qtc 398. Nonspecific change. No prior for comparison. MDM Narrative Medical decision making narrative: Patient given asa 324mg in Ed. Chest pain is 2/10 down from 5/10, given nitro SL and on recheck, patient chest pain has resolved. Patient story is concerning for cardiac in nature but is slightly tachycardic and oxygen was low on arrival. Ddimer was ordered and elevated at 4400. CT Angio shows pulmonary embolism, negative troponin. BNP is <100. Patient and I discussed findings. Started on heparin gtt with bolus. With size of clot burden feel it is appropriate to discuss with interventionalist. Dr. Camara states no strain on CT that he appreciates. Discussed with Dr. Barrett the hospitalist, she accepts for transfer but felt patient is unlikely to have intervention at this time with normal troponin and stable vital signs. Patient and I discussed, she is comfortable with plan and if she had worsening extension of clot of issues she would be in an appropriate facility for direct intervention. Patient and I did review code status and she is full code but would not wish for prolonged intubation. Discharge Plan Departure Patient Disposition: [facility] Clinical Impression: Pulmonary embolism Prescriptions: No Action levothyroxine [Synthroid] 75 MCG tablet 75 mcg PO QAM Qty: 90 RF: 0 Referrals: Renetta Sevilla MD [Primary Care Provider] -
[2019-03-24 12:00] LABS: Add Manual Diff / Slide Review NO; Basophils Absolute Auto 100 /uL (0-100); Basophils Percent Auto 0.8 % (0-2); Eosinophils Absolute Auto 300 /uL (0-450); Eosinophils Percent Auto 2.9 % (2-4); Hematocrit 41.5 % (36-46); Hemoglobin 14.1 g/dL (12.0-16.0); Lymphocytes Absolute Auto 1700 /uL (1100-4500); Lymphocytes Percent Auto 15.1 % (25-40); Mean Corpuscular HGB Conc 33.9 % (30-36); Mean Corpuscular Hemoglobin 31.6 PG (26-34); Mean Corpuscular Volume 93.2 fL (80-100); Monocytes Absolute Auto 800 /uL (0-900); Monocytes Percent Auto 6.8 % (3-14); Neutrophils Absolute Auto 8600 /uL (1500-7000); Neutrophils Percent Auto 74.4 % (50-75); Platelet Count 284 X10^3/uL (150-400); Red Blood Cell Count 4.45 X10^6/uL (4.0-5.2); Red Cell Distribution Width 13.5 % (11.6-14.8); White Blood Cell Count 11.5 X10^3/uL (4.5-11.0)
[2019-03-24] MEDS: ASPIRIN 81 MG CHEW TAB 324 MG PO (12:02)
[2019-03-24] MEDS: NITROGLYCERIN 0.4 MG SL TAB SL ×2 (12:04→12:15)
[2019-03-24 12:06] LABS: Prothrombin Time 11.7 SECONDS (10.1-12.7)
[2019-03-24 12:08] LABS: PTT Partial Thromboplastin Tim 29 SECONDS (26.4-36.2)
[2019-03-24 12:18] LABS: Alanine Aminotransferase 15 IU/L (<35); Albumin Globulin Ratio 1.2 (1.0-2.8); Alkaline Phosphatase 84 U/L (38-126); Aspartate Aminotransferase 43 IU/L (14-36); BUN Creatinine Ratio 25.7 (6-22); Bilirubin Total 1.2 mg/dL (0.2-1.3); Blood Urea Nitrogen 18 mg/dL (7-17); Carbon Dioxide 25 mmol/L (22-32); Chloride 106 mmol/L (98-107); Creatine Kinase 53 U/L (30-135); Estimated Glomerular Filt Rate > 60.0 mL/min (>60); Globulin 4.1 g/dL (1.7-4.1); Glucose 88 mg/dL (80-110); Lipase 64 U/L (23-300); Sodium 142 mmol/L (137-145); Total Protein 9.1 g/dL (6.3-8.2)
[2019-03-24 12:22] LABS: B Type Natriuretic Peptide < 100 (<100)
[2019-03-24 12:24] LABS: HEMOLYSIS 191 (0-50); Potassium 4.9 mmol/L (3.4-5.1)
[2019-03-24 12:28] LABS: Troponin I 0.028 ng/mL (0.01-0.034)
[2019-03-24 12:31] LABS: D Dimer 4411 ng/mL (<230)
--- NOTE | 2019-03-24 12:43 | DI.CT.S_ITS ---
PROCEDURE: CT ANGIO CHEST PE PROTOCOL INDICATIONS: chest pain, sob TECHNIQUE: After the administration of intravenous contrast, 2 mm thick sections acquired from the pulmonary apices to the posterior costophrenic angles. 3-dimensional maximum intensity projection (MIP) coronal and sagittal reformats were then acquired through the thorax. For radiation dose reduction, the following was used: automated exposure control, adjustment of mA and/or kV according to patient size. COMPARISON: None. FINDINGS: Image quality: Excellent. Pulmonary arteries: Pulmonary arteries are normal in size, but demonstrate bilateral definite intraluminal filling defects to diagnostic of central and peripheral pulmonary embolism. The right main pulmonary artery and its branch point peripherally contains a large thrombus, measuring up to approximately 1.8 cm in maximal diameter. A thin band of thrombus crosses the midline and extends into the left main pulmonary artery to a much lesser degree emboli into the basilar branches of the pulmonary arteries bilaterally are present. There is mild edema within the right lower lobe lung parenchyma, most likely representing a mild degree of pulmonary ischemic injury to that portion of the lung parenchyma. Lungs and pleura: Lungs are clear. No pleural effusions or pneumothorax. Central and peripheral airways are patent. Mediastinum: Heart size is normal, without pericardial effusion. No mediastinal or hilar adenopathy. Thoracic aorta is normal in caliber and enhancement. Esophagus is normal in caliber, without hiatal hernia. Bones and chest wall: No suspicious bony lesions. Ribs and thoracic spine appear intact throughout. Thyroid gland appears normal where well seen. No axillary or supraclavicular adenopathy. Abdomen: Visualized upper abdominal solid organs appear normal in the early arterial phase of enhancement. IMPRESSION: Bilateral acute pulmonary emboli, right greater than left, with mild ischemic injury to the portion of the mid right lung posteriorly, within the right lower lobe. No right-sided cardiac chamber enlargement is present. Findings immediately called to the emergency room physician caring for the patient. Dictated by: Luis M Camara M.D. on 03/24/2019 at 13:01 Approved by: Luis M Camara M.D. on 03/24/2019 at 13:06
[2019-03-24] MEDS: HEPARIN DRIP 25,000 UNIT/500 ML IV.SOLN 21.228 UNIT IV (13:03)
[2019-03-24] MEDS: HEPARIN 5,000 UNIT/ML VIAL 7500 UNIT IV (13:03)
--- NOTE | 2019-03-24 13:25 | PC.NURSE ---
Pt asked me to call her son Chong and explain situation, called and spoke to him via cell phone. All questions answered to the best of my knowledge. Encouraged him to call back if he has any questions or would like an update. Crow MORENO / Hiren is being consulted at this time.
--- NOTE | 2019-03-24 14:44 | PC.NURSE ---
, Dr. Regalado, called for update. asked that we share all medical information. He was updated, questions answered to the best of my ability.
--- NOTE | 2019-04-18 20:32 | PC.NURSE ---
Late Entry: Heparin gtt started 1303, infusing @ 21.22 cc/ hour, completed upon transfer of care to ALS team @ [id number]. Please see [facility] transport paperwork for further Heparin infusion.
== END 2019-03-24 16:38 | disposition short-term general hospital (02) ==
PROVIDERS: Emergency Provider Emergency Medicine; PCP Internal Medicine
DX: I26.99 Other pulmonary embolism without acute cor pulmonale (principal); R00.0 Tachycardia, unspecified; R79.89 Other specified abnormal findings of blood chemistry
CPT/HCPCS: 36415; 71045; 71275; 80053; 82550; 83690; 83880; 84443; 84484; 85025; 85379; 85610; 85730; 93005; 93010; 96365; 96366; 96375; 99285; 99291; J1644; Q9967

== ENCOUNTER → 2019-07-21 08:40 | Outpatient (CLI) | payer MEDICARE, SELFPAY ==
--- NOTE | 2019-07-21 08:41 | DI.MG.S_ITS ---
BILATERAL DIGITAL SCREENING MAMMOGRAM 3D/2D WITH CAD POST LUMPECTOMY: 07/21/2019 CLINICAL: Routine screening. Personal history of left breast cancer. Family history of breast cancer. Comparison is made to exams dated: 05/09/2018 mammogram, 05/08/2017 mammogram, and 04/28/2016 mammogram - [facility]. There are scattered fibroglandular elements in both breasts. Current study was also evaluated with a Computer Aided Detection (CAD) system. There are benign calcifications in both breasts. There also are benign post operative findings in the left breast. No significant masses, calcifications, or other findings are seen in either breast. There has been no significant interval change. IMPRESSION: There is no mammographic evidence of malignancy. A 1 year screening mammogram is recommended. This exam was interpreted at Station ID: [id number]. NOTE: For mammograms, a report in lay terms will be sent to the patient. Approximately 15% of breast malignancies will not be visualized mammographically. In the management of a palpable breast mass, a negative mammogram must not discourage biopsy of a clinically suspicious lesion. Electronically Signed By: Tyler hess/owen:07/21/2019 09:58:10 copy to: Elbert Remy letter sent: Normal Exam ACR BI-RADS Category 2: Benign Finding(s) 3342F
== END ==
PROVIDERS: PCP Internal Medicine; Referring Provider Internal Medicine; Visit Provider Internal Medicine
DX: Z12.31 Encounter for screening mammogram for malignant neoplasm of breast (principal); Z85.3 Personal history of malignant neoplasm of breast; Z80.3 Family history of malignant neoplasm of breast
CPT/HCPCS: 77063; 77067

== ENCOUNTER → 2019-12-11 14:06 | Outpatient (CLI) | payer MEDICARE, SELFPAY ==
--- NOTE | 2019-12-11 | DI.RAD.S_ITS ---
PROCEDURE: XR DEXA AXIAL SKELETON INDICATIONS: OSTEOPENIA COMPARISON: [facility], CR, XR DEXA AXIAL SKELETON, 05/31/2018, 13:26. FINDINGS: This blank DEXA report has been sent in error by the PACS system. The correct and complete report will be forthcoming in 1-2 days. Thank you for your patience and understanding. Dictated by: Beti Purcell MD, PhD on 12/11/2019 at 16:28 Approved by: Beti Purcell MD, PhD on 12/11/2019 at 16:28
== END ==
PROVIDERS: PCP Internal Medicine; Referring Provider Internal Medicine; Visit Provider Internal Medicine
DX: M85.851 Other specified disorders of bone density and structure, right thigh (principal); Z78.0 Asymptomatic menopausal state; E07.9 Disorder of thyroid, unspecified; Z85.3 Personal history of malignant neoplasm of breast; Z90.722 Acquired absence of ovaries, bilateral; Z87.891 Personal history of nicotine dependence
CPT/HCPCS: 77080

== ENCOUNTER → 2019-12-12 09:08 | Outpatient (CLI) | payer MEDICARE, SELFPAY ==
[2019-12-12 10:21] LABS: Alanine Aminotransferase 16 IU/L (<35); Albumin 4.1 g/dL (3.5-5.0); Albumin Globulin Ratio 1.3 (1.0-2.8); Alkaline Phosphatase 75 U/L (38-126); Aspartate Aminotransferase 21 IU/L (14-36); BUN Creatinine Ratio 23.3 (6-22); Bilirubin Total 0.6 mg/dL (0.2-1.3); Blood Urea Nitrogen 20 mg/dL (7-17); Calcium 9.3 mg/dL (8.4-10.2); Carbon Dioxide 29 mmol/L (22-32); Chloride 106 mmol/L (98-107); Cholesterol 233 mg/dL (140-199); Estimated Glomerular Filt Rate > 60.0 mL/min (>60); Globulin 3.2 g/dL (1.7-4.1); Glucose 88 mg/dL (80-110); HDL Cholesterol 82 mg/dL (40-60); HEMOLYSIS < 15 (0-50); LDL Cholesterol Calculated 130 mg/dL (<100); Potassium 4.7 mmol/L (3.4-5.1); Sodium 140 mmol/L (137-145); Total Protein 7.3 g/dL (6.3-8.2); Triglycerides 104 mg/dL (35-150)
[2019-12-12 10:44] LABS: TSH w/ Reflex to FT4 2.16 uIU/mL (0.47-4.68)
== END ==
PROVIDERS: PCP Internal Medicine; Referring Provider Internal Medicine; Visit Provider Internal Medicine
DX: E03.9 Hypothyroidism, unspecified (principal); E78.5 Hyperlipidemia, unspecified; M85.80 Other specified disorders of bone density and structure, unspecified site
CPT/HCPCS: 36415; 80053; 80061; 84443

== ENCOUNTER → 2019-12-28 12:38 | Outpatient (CLI) | payer MEDICARE, SELFPAY ==
--- NOTE | 2019-12-28 12:42 | DI.RAD.S_ITS ---
PROCEDURE: XR KNEE RT 3V INDICATIONS: Right lower extremity radiculopathy TECHNIQUE: 3 views of the knee were acquired. COMPARISON: None. FINDINGS: Bones: No fractures or dislocations. There are small intercondylar osteophytes and a small patellar enthesophyte. No suspicious bony lesions. Soft tissues: No joint effusion. No suspicious soft tissue calcifications. IMPRESSION: Degenerative change. No acute radiographic findings. Dictated by: Vane Sullivan M.D. on 12/28/2019 at 14:31 Approved by: Vane Sullivan M.D. on 12/28/2019 at 14:31
--- NOTE | 2019-12-28 12:42 | DI.MRI.S_ITS ---
PROCEDURE: MR LUMBAR SPINE WO CON INDICATIONS: Right lower extremity radiculopathy TECHNIQUE: Noncontrast sagittal T1 spin echo and T2 fast echo, sagittal STIR, axial T1 and T2 fast spin echo through the lumbar spine. In cases with scoliosis, additional coronal T2 fast spin echo may be performed. COMPARISON: [facility], CR, XR LUMBAR SPINE 2-3V, 03/18/2018, 10:26. FINDINGS: Image quality: Excellent. Alignment and Curvature: 5 lumbar type vertebral bodies are present by plain film. There is mild grade 1 retrolisthesis of L2 on L3, L3 on L4, and L4 on L5. Bone Marrow: Marrow is of normal overall signal. No acute vertebral body compression fractures. Moderate reactive signal within the endplates adjacent to the L3-L4 intervertebral disc. Mild reactive signal within the endplates adjacent to the L4-L5 and L5-S1 intervertebral discs. Spinal Cord: Conus medullaris terminates at the lower L1 level. Visualized cord demonstrates normal signal and size. Paraspinous Soft Tissues: No paravertebral masses. L1-L2: Mild disc height loss and desiccation. Mild diffuse disc bulge. Mild facet and ligamentum flavum hypertrophy. Mild epidural lipomatosis. Mild canal stenosis. No foraminal stenosis. L2-L3: Mild disc height loss and desiccation. Mild diffuse disc bulge. Mild facet and ligamentum flavum hypertrophy. Mild epidural lipomatosis. Mild canal stenosis. Mild foraminal stenosis bilaterally. L3-L4: Moderate disc height loss and desiccation. Mild diffuse disc bulge. Mild facet and ligamentum flavum hypertrophy. Mild epidural lipomatosis. Mild canal stenosis. Moderate subarticular foraminal stenosis bilaterally. L4-L5: Severe disc height loss and desiccation. Moderate diffuse disc bulge with small superimposed central protrusion. Mild facet and ligamentum flavum hypertrophy. Mild canal stenosis. Moderate to severe left foraminal stenosis. Moderate right foraminal stenosis. Possible left L4 nerve root compression. L5-S1: Severe disc height loss and desiccation. Mild diffuse disc bulge with superimposed broad-based left posterolateral protrusion/osteophyte. Mild bilateral facet hypertrophy. No canal stenosis. Moderate left greater than right foraminal stenosis. IMPRESSION: 1. Multilevel degenerative disc and facet disease, as well as ligamentum flavum hypertrophy and epidural lipomatosis. 2. Mild multilevel canal stenosis. 3. Multilevel foraminal stenoses, worst on the left at L4-L5 where there is possible intraforaminal nerve root compression. Recommend correlation with clinical symptoms to ascertain relevance of this finding. Dictated by: Wagner Benoit M.D. on 12/29/2019 at 9:19 Approved by: Wagner Benoit M.D. on 12/29/2019 at 9:24
== END ==
PROVIDERS: PCP Internal Medicine; Referring Provider Physical Medicine & Rehabilitation; Visit Provider Physical Medicine & Rehabilitation
DX: M51.16 Intervertebral disc disorders with radiculopathy, lumbar region (principal); M51.17 Intervertebral disc disorders with radiculopathy, lumbosacral region; M47.26 Other spondylosis with radiculopathy, lumbar region; M47.27 Other spondylosis with radiculopathy, lumbosacral region; M48.061 Spinal stenosis, lumbar region without neurogenic claudication; M48.07 Spinal stenosis, lumbosacral region; M17.11 Unilateral primary osteoarthritis, right knee; M54.5 Low back pain
CPT/HCPCS: 72148; 73562

== ENCOUNTER → 2020-01-10 10:18 | Outpatient (CLI) | payer MEDICARE, SELFPAY ==
[2020-01-12 07:58] LABS: COVID19 Sendout Not Detected (Not Detect)
== END ==
PROVIDERS: PCP Internal Medicine; Visit Provider Physician Assistant
DX: Z11.59 Encounter for screening for other viral diseases (principal)
CPT/HCPCS: 87635

== ENCOUNTER 2020-01-13 08:48 | Outpatient (CLI) | payer MEDICARE, SELFPAY ==
[2020-01-13] VITALS (10 sets, daily range): BP systolic 104–146; BP diastolic 44–67; PULSE 65–81; RESP 13–20; O2SAT 96–100
--- NOTE | 2020-01-13 08:52 | DI.RAD.S_ITS ---
PROCEDURE: PAIN L/S TRANSFORAMINAL INJECT INDICATIONS: SPONDYLOSIS COMPARISON: [facility], MR, MR LUMBAR SPINE WO CON, 12/28/2019, 12:46. FINDINGS: Fluoroscopic spot filming was performed to verify placement of a spinal needle at the L4-L5 level on the right, as labeled on the films. Appropriate location of the needle tip was confirmed by injection of iodinated contrast. IMPRESSION: Intraprocedural examination within normal limits. Dictated by: Manuel Harris M.D. on 01/13/2020 at 9:45 Approved by: Mnauel Harris M.D. on 01/13/2020 at 9:45
[2020-01-13] MEDS: fentaNYL 100 MCG/2 ML INJ 50 MCG IV (09:30)
[2020-01-13] MEDS: MIDAZOLAM 5 MG/5 ML VIAL IV (09:30)
[2020-01-13] MEDS: IOPAMIDOL 15 ML VIAL 3 ML INJ (09:33)
[2020-01-13] MEDS: BUPIVACAINE 0.25% (PF) VIAL 2 ML INJ (09:33)
[2020-01-13] MEDS: BETAMETHASONE 30 MG/5 ML MDV 6 MG INJ (09:34)
[2020-01-13] MEDS: DEXAMETHASONE 10 MG/ML VIAL 20 MG INJ (09:34)
--- NOTE | 2020-01-13 09:43 | P.PCN_ITS ---
Date/Time/Diagnoses Date of procedure: 01/13/20 Time of procedure: 09:43 Pre-procedure diagnosis: 1. FORAMINAL STENOSIS WITH LE SYMPTOMS Post-procedure diagnosis: same Procedure Notes Procedure: 1. FLUOROSCOPICALLY GUIDED CONTRAST CONTROLLED TRANSFORAMINAL EPIDURAL STEROID INJECTION - RIGHT L4/5 TFESI Indications: Ev is referred by Dr. Sevilla for treatment of HNP with Right LE Symptoms Physician: Rj Hermosillo Total Fluoroscopy time (seconds): 9 Total sedation minutes: 11 Complications: none Procedure in detail & Post-procedure care: FINDINGS Foraminal Nerve Root Compression secondary to disc disease and facet hypertrophy DESCRIPTION OF PROCEDURE Following review of allergy and review of potential side effects and complications, including, but not necessarily limited to, infection, allergic reaction, local tissue breakdown, stroke, temporary or permanent nerve injury, paralysis, and possible , the patient indicated that the patient understood and agreed to proceed. An informed consent document was signed by the patient, witnessed by a nurse, and placed in the patient's chart. Additionally, other treatment options including medications, modalities, and physical therapy were reviewed with the patient. After review of previous anaesthesic history and IV conscious sedation the patient was deemed safe to proceed with today?s procedure with IV conscious se dation as ASA class II designation. Safety time-out was performed to confirm patient ID, procedure to be performed and site of procedure. IV sedation was accomplished with a combination of 2mg of Versed and 50mcg of Fentanyl was administered by the RN after DO order, titrated to patient comfort during the course of the procedure while the patient remained responsive to all verbal commands In the prone position following sterile prep and drape of the lumbar region, the Right L4/5 posterior neuroforamen was identified fluoroscopically. The skin was anesthetized via a 25-gauge 1.5-inch needle with 1% lidocaine solution. At this point, a 25-gauge 3.5-inch spinal needle was atraumatically introduced and advanced under fluoroscopic guidance through the posterior Right L4/5 neuroforamen to approximately the anterior aspect of the canal. Depth was confirmed on lateral view. Following negative aspiration, injection of approximately 1.5cc of Isovue 200 under live fluoroscopy in the AP view confirmed excellent flow along the nerve root, into the epidural space without vascular or intrathecal uptake observed Radiological data, including multiple fluoroscopic views of the lumbosacral spine, reveal a spinal needle at the right L4/5 posterior neuroforamen. Subsequent views show flow of contrast material flowing superiorly and inferiorly along the nerve root confirming epidural flow. Subsequently, a test dose of 1.5 cc of 1% lidocaine solution was administered and patient was observed for two minutes for signs or symptoms of complications, including abdominal pain, shortness of breath, bilateral upper or lower extremity weakness, nausea and vomiting, prior to steroid injection. At this point, a total of 3cc or 20mg of dexamethasone and 6mg of betamethasone was injected without incident. The procedure tolerated the procedure well without signs or symptoms of complications prior to transfer to the recovery area continued monitoring without incident. The patient was then transferred to the recovery area where they were observed for an appropriate time after the injection. The patient reported a VAS score of 7 prior to the procedure and a post- procedure VAS of 0. POST OP INSTRUCTIONS The patient was provided a Pain Log to continue to record their response to the target-specific procedure prior to follow-up visit with their referring physician. Additionally, specific post-injection care instructions and a contact number to our office were provided if concerns arise regarding possible complications associated with the procedure are suspected.
== END 2020-01-13 11:15 | disposition home or self-care (01) ==
LOC: RAD 08:50
PROVIDERS: PCP Internal Medicine; Referring Provider Physical Medicine & Rehabilitation; Visit Provider Physical Medicine & Rehabilitation
DX: M48.061 Spinal stenosis, lumbar region without neurogenic claudication (principal); M51.16 Intervertebral disc disorders with radiculopathy, lumbar region
CPT/HCPCS: 64483; 99152; J0702; J1100; J2250; J3010

== ENCOUNTER → 2020-03-09 14:25 | Outpatient (CLI) | payer OTHER, SELFPAY ==
[2020-03-09 15:24] LABS: COVID19 -Nasal RAPID Negative (Negative)
== END ==
PROVIDERS: PCP Internal Medicine; Visit Provider Physical Medicine & Rehabilitation
DX: Z01.812 Encounter for preprocedural laboratory examination (principal); Z20.822 Contact with and (suspected) exposure to COVID-19
CPT/HCPCS: 87635; C9803

== ENCOUNTER 2020-03-11 12:54 | Outpatient (CLI) | payer OTHER, MEDICARE, SELFPAY ==
[2020-03-11] VITALS (8 sets, daily range): BP systolic 115–137; BP diastolic 56–67; PULSE 64–76; RESP 13–17; TEMP 36.5; O2SAT 95–99
--- NOTE | 2020-03-11 12:56 | DI.RAD.S_ITS ---
PROCEDURE: PAIN L/S TRANSFORAMINAL INJECT INDICATIONS: SPONDYLOSIS COMPARISON: [facility], , PAIN L/S TRANSFORAMINAL INJECT, 01/13/2020, 9:33. FINDINGS: Fluoroscopic spot filming was performed to verify placement of spinal needles at the L5-S1 level(s), as labeled on the films. Appropriate location(s) of the needle tip(s) was confirmed by injection of iodinated contrast. Dictated by: Faustino Zee M.D. on 03/11/2020 at 14:39 Approved by: Faustino Zee M.D. on 03/11/2020 at 14:39
[2020-03-11] MEDS: BETAMETHASONE 30 MG/5 ML MDV 6 MG INJ (14:13)
[2020-03-11] MEDS: DEXAMETHASONE 10 MG/ML VIAL 20 MG INJ (14:13)
[2020-03-11] MEDS: IOPAMIDOL 15 ML VIAL 3 ML INJ (14:13)
[2020-03-11] MEDS: BUPIVACAINE 0.25% (PF) VIAL 2 ML INJ (14:13)
--- NOTE | 2020-03-11 14:26 | P.PCN_ITS ---
Date/Time/Diagnoses Date of procedure: 03/11/20 Time of procedure: 14:27 Pre-procedure diagnosis: 1. FORAMINAL STENOSIS WITH LE SYMPTOMS Post-procedure diagnosis: same Procedure Notes Procedure: 1. FLUOROSCOPICALLY GUIDED CONTRAST CONTROLLED TRANSFORAMINAL EPIDURAL STEROID INJECTION - RIGHT L5/S1 TFESI Indications: Ev is referred by Dr. Sevilla for treatment of Foraminal Stenosis with right LE Symptoms Physician: Rj Hermosillo Total Fluoroscopy time (seconds): 8 Total sedation minutes: 11 Complications: none Procedure in detail & Post-procedure care: FINDINGS Foraminal Nerve Root Compression secondary to disc disease and facet hypertrophy DESCRIPTION OF PROCEDURE Following review of allergy and review of potential side effects and complications, including, but not necessarily limited to, infection, allergic reaction, local tissue breakdown, stroke, temporary or permanent nerve injury, paralysis, and possible , the patient indicated that the patient understood and agreed to proceed. An informed consent document was signed by the patient, witnessed by a nurse, and placed in the patient's chart. Additionally, other treatment options including medications, modalities, and physical therapy were reviewed with the patient. After review of previous anaesthesic history and IV conscious sedation the patient was deemed safe to proceed with today?s procedure with IV conscious sedation as ASA class II designation. Safety time-out was performed to confirm patient ID, procedure to be performed and site of procedure. IV sedation was accomplished with a combination of 2mg of Versed and 50mcg of Fentanyl was administered by the RN after DO order, titrated to patient comfort during the course of the procedure while the patient remained responsive to all verbal co mmands In the prone position following sterile prep and drape of the lumbar region, the right L5/S1 posterior neuroforamen was identified fluoroscopically. The skin was anesthetized via a 25-gauge 1.5-inch needle with 1% lidocaine solution. At this point, a 25-gauge 3.5-inch spinal needle was atraumatically introduced and advanced under fluoroscopic guidance through the posterior right L5/S1 neuroforamen to approximately the anterior aspect of the canal. Depth was confirmed on lateral view. Following negative aspiration, injection of approximately 1.5cc of Isovue 200 under live fluoroscopy in the AP view confirmed excellent flow along the nerve root, into the epidural space without vascular or intrathecal uptake observed Radiological data, including multiple fluoroscopic views of the lumbosacral spine, reveal a spinal needle at the right L5/S1 posterior neuroforamen. Subsequent views show flow of contrast material flowing superiorly and inferiorly along the nerve root confirming epidural flow. Subsequently, a test dose of 1.5cc of 1% lidocaine solution was administered and patient was observed for two minutes for signs or symptoms of complications, including abdominal pain, shortness of breath, bilateral upper or lower extremity weakness, nausea and vomiting, prior to steroid injection. At this point, a total of 3cc or 20mg of dexamethasone and 6mg betamethasone was injected without incident. The procedure tolerated the procedure well without signs or symptoms of complications prior to transfer to the recovery area continued monitoring without incident. The patient was then transferred to the recovery area where they were observed for an appropriate time after the injection. The patient reported a VAS score of 7 prior to the procedure and a post-procedure VAS of 0. POST OP INSTRUCTIONS The patient was provided a Pain Log to continue to record their response to the target-specific procedure prior to follow-up visit with their referring physician. Additionally, specific post-injection care instructions and a contact number to our office were provided if concerns arise regarding possible complications associated with the procedure are suspected.
== END 2020-03-11 14:50 | disposition home or self-care (01) ==
LOC: RAD 12:54
PROVIDERS: PCP Internal Medicine; Referring Provider Internal Medicine; Visit Provider Physical Medicine & Rehabilitation
DX: M48.07 Spinal stenosis, lumbosacral region (principal); M51.17 Intervertebral disc disorders with radiculopathy, lumbosacral region
CPT/HCPCS: 64483; 99152; J0702; J1100; J2250; J3010

== ENCOUNTER → 2020-04-15 10:12 | Outpatient (CLI) | payer OTHER, SELFPAY ==
--- NOTE | 2020-04-15 10:14 | DI.RAD.S_ITS ---
PROCEDURE: XR LUMBAR SPINE MIN 4V INDICATIONS: INCREASE PAIN IN LUMBAR AREA TECHNIQUE: 5 views of the lumbar spine were acquired, including bilateral oblique views. COMPARISON: [facility], MR, MR LUMBAR SPINE WO CON, 12/28/2019, 12:46. [facility], CR, XR LUMBAR SPINE 2-3V, 03/18/2018, 10:26. FINDINGS: Bones: 5 nonrib-bearing vertebrae are present. Trace degenerative retrolisthesis of L4 on L5 and of L3 on L4. Severe disc height loss at L4-L5 and L5-S1. Multilevel lumbar facet arthropathy. No vertebral body compression fractures. No suspicious bony lesions. Soft tissues: Overlying bowel gas pattern is normal. No suspicious soft tissue calcifications. Oblique images: No pars defects. IMPRESSION: Degenerative disc disease and facet arthropathy. No acute compression fractures. Dictated by: Felipe Lay M.D. on 04/15/2020 at 12:08 Approved by: Felipe Lay M.D. on 04/15/2020 at 12:13
== END ==
PROVIDERS: PCP Internal Medicine; Referring Provider Physical Medicine & Rehabilitation; Visit Provider Physical Medicine & Rehabilitation
DX: M51.16 Intervertebral disc disorders with radiculopathy, lumbar region (principal); M47.26 Other spondylosis with radiculopathy, lumbar region
CPT/HCPCS: 72110

== ENCOUNTER → 2020-07-22 08:23 | Outpatient (CLI) | payer OTHER, SELFPAY ==
--- NOTE | 2020-07-22 | DI.MG.S_ITS ---
BILATERAL DIGITAL SCREENING MAMMOGRAM 3D/2D WITH CAD POST LUMPECTOMY: 07/22/2020 CLINICAL: Routine screening. Personal history of left breast cancer. Family history of breast cancer. Comparison is made to exams dated: 07/21/2019 mammogram, 05/09/2018 mammogram, and 05/08/2017 mammogram - [facility]. There are scattered fibroglandular elements in both breasts. Current study was also evaluated with a Computer Aided Detection (CAD) system. There are benign calcifications in both breasts. There also are benign post operative findings in the left breast. No significant masses, calcifications, or other findings are seen in either breast. There has been no significant interval change. IMPRESSION: BENIGN There is no mammographic evidence of malignancy. A 1 year screening mammogram is recommended. This exam was interpreted at Station ID: [id number]. NOTE: For mammograms, a report in lay terms will be sent to the patient. Approximately 15% of breast malignancies will not be visualized mammographically. In the management of a palpable breast mass, a negative mammogram must not discourage biopsy of a clinically suspicious lesion. Electronically Signed By: Tyler hess/owen:07/22/2020 09:48:29 copy to: Renetta Sevilla letter sent: Normal Exam ACR BI-RADS Category 2: Benign Finding(s) 3342F
[2020-07-22 09:15] LABS: Add Manual Diff / Slide Review NO; Basophils Absolute Auto 100 /uL (0-100); Basophils Percent Auto 1.4 % (0-2); Eosinophils Absolute Auto 700 /uL (0-450); Eosinophils Percent Auto 11.7 % (2-4); Hematocrit 39.3 % (36-46); Hemoglobin 12.9 g/dL (12.0-16.0); Lymphocytes Absolute Auto 1400 /uL (1100-4500); Lymphocytes Percent Auto 22.5 % (25-40); Mean Corpuscular HGB Conc 32.8 % (30-36); Mean Corpuscular Hemoglobin 31.9 PG (26-34); Mean Corpuscular Volume 97.2 fL (80-100); Monocytes Absolute Auto 500 /uL (0-900); Monocytes Percent Auto 8.2 % (3-14); Neutrophils Absolute Auto 3600 /uL (1500-7000); Neutrophils Percent Auto 56.2 % (50-75); Platelet Count 338 X10^3/uL (150-400); Red Blood Cell Count 4.04 X10^6/uL (4.0-5.2); Red Cell Distribution Width 13.2 % (11.6-14.8); White Blood Cell Count 6.3 X10^3/uL (4.5-11.0)
[2020-07-22 09:24] LABS: D Dimer 577 ng/mL (<230)
[2020-07-22 09:27] LABS: Alanine Aminotransferase 18 IU/L (<35); Albumin 4.2 g/dL (3.5-5.0); Albumin Globulin Ratio 1.3 (1.0-2.8); Alkaline Phosphatase 68 U/L (38-126); Aspartate Aminotransferase 22 IU/L (14-36); Bilirubin Total 0.4 mg/dL (0.2-1.3); Blood Urea Nitrogen 17 mg/dL (7-17); Calcium 9.4 mg/dL (8.4-10.2); Carbon Dioxide 27 mmol/L (22-32); Chloride 106 mmol/L (98-107); Estimated Glomerular Filt Rate > 60.0 mL/min (>60); Globulin 3.3 g/dL (1.7-4.1); Glucose 80 mg/dL (80-110); HEMOLYSIS < 15 (0-50); Sodium 139 mmol/L (137-145); Total Protein 7.5 g/dL (6.3-8.2)
== END ==
PROVIDERS: PCP Internal Medicine; Referring Provider Internal Medicine Hematology & Oncology; Visit Provider Internal Medicine Hematology & Oncology
DX: Z12.31 Encounter for screening mammogram for malignant neoplasm of breast (principal); Z85.3 Personal history of malignant neoplasm of breast; Z80.3 Family history of malignant neoplasm of breast; I26.99 Other pulmonary embolism without acute cor pulmonale
CPT/HCPCS: 36415; 77063; 77067; 80053; 85025; 85379

== ENCOUNTER → 2020-11-02 09:45 | Outpatient (CLI) | payer OTHER, SELFPAY ==
[2020-11-02 13:25] LABS: COVID19 -Nasal RAPID Negative (Negative)
== END ==
PROVIDERS: PCP Internal Medicine; Visit Provider Physical Medicine & Rehabilitation
DX: Z20.822 Contact with and (suspected) exposure to COVID-19 (principal)
CPT/HCPCS: 87635; C9803

== ENCOUNTER 2020-11-04 07:33 | Outpatient (CLI) | payer OTHER, SELFPAY ==
[2020-11-04] VITALS (8 sets, daily range): BP systolic 111–141; BP diastolic 52–64; PULSE 65–74; RESP 12–20; TEMP 36.6–37.2; O2SAT 97–100
--- NOTE | 2020-11-04 07:35 | DI.RAD.S_ITS ---
PROCEDURE: PAIN L/S TRANSFORAMINAL INJECT INDICATIONS: SPONDYLOSIS COMPARISON: [facility], , PAIN L/S TRANSFORAMINAL INJECT, 03/11/2020, 14:11. FINDINGS: Fluoroscopic spot filming was performed to verify placement of a spinal needle at the L4-L5 level, as labeled on the films. Appropriate location of the needle tip was confirmed by injection of iodinated contrast. IMPRESSION: Intraprocedural examination within normal limits. Dictated by: Manuel Harris M.D. on 11/04/2020 at 8:24 Approved by: Manuel Harris M.D. on 11/04/2020 at 8:25
[2020-11-04] MEDS: fentaNYL 100 MCG/2 ML INJ 50 MCG IV (08:45)
[2020-11-04] MEDS: MIDAZOLAM 5 MG/5 ML VIAL IV (08:45)
[2020-11-04] MEDS: IOPAMIDOL 15 ML VIAL 3 ML INJ (08:51)
[2020-11-04] MEDS: BUPIVACAINE 0.25% (PF) VIAL 2 ML INJ (08:51)
[2020-11-04] MEDS: methylPREDNISolone acetate 80 MG/ML VIAL INJ (08:52)
[2020-11-04] MEDS: DEXAMETHASONE 10 MG/ML VIAL 20 MG INJ (08:52)
--- NOTE | 2020-11-04 09:03 | P.PCN_ITS ---
Date/Time/Diagnoses Date of procedure: 11/04/20 Time of procedure: 09:03 Pre-procedure diagnosis: 1. FORAMINAL STENOSIS WITH LE SYMPTOMS Post-procedure diagnosis: same Procedure Notes Procedure: 1. FLUOROSCOPICALLY GUIDED CONTRAST CONTROLLED TRANSFORAMINAL EPIDURAL STEROID INJECTION - RIGHT L4/5 TFESI Indications: Ev is referred by Dr. Sevilla for treatment of Foraminal Stenosis with Right LE Symptoms Physician: Rj Hermosillo Total Fluoroscopy time (seconds): 10 Total sedation minutes: 11 Complications: none Procedure in detail & Post-procedure care: FINDINGS Foraminal Nerve Root Compression secondary to disc disease and facet hypertrophy DESCRIPTION OF PROCEDURE Following review of allergy and review of potential side effects and complications, including, but not necessarily limited to, infection, allergic reaction, local tissue breakdown, stroke, temporary or permanent nerve injury, paralysis, and possible , the patient indicated that the patient understood and agreed to proceed. An informed consent document was signed by the patient, witnessed by a nurse, and placed in the patient's chart. Additionally, other treatment options including medications, modalities, and physical therapy were reviewed with the patient. After review of previous anaesthesic history and IV conscious sedation the patient was deemed safe to proceed with today?s procedure with IV conscious sedation as ASA class II designation. Safety time-out was performed to confirm patient ID, procedure to be performed and site of procedure. IV sedation was accomplished with a combination of 2mg of Versed and 50mcg of Fentanyl was administered by the RN after DO order, titrated to patient comfort during the course of the procedure while the patient remained responsive to all verbal comm ands In the prone position following sterile prep and drape of the lumbar region, the right L4/5 posterior neuroforamen was identified fluoroscopically. The skin was anesthetized via a 25-gauge 1.5-inch needle with 1% lidocaine solution. At this point, a 25-gauge 3.5-inch spinal needle was atraumatically introduced and advanced under fluoroscopic guidance through the posterior right L4/5 rupal roforamen to approximately the anterior aspect of the canal. Depth was confirmed on lateral view. Following negative aspiration, injection of approximately 1.5cc of Isovue 200 under live fluoroscopy in the AP view confirmed excellent flow along the nerve root, into the epidural space without vascular or intrathecal uptake observed Radiological data, including multiple fluoroscopic views of the lumbosacral spine, reveal a spinal needle at the right L4/5 posterior neuroforamen. Subsequent views show flow of contrast material flowing superiorly and inferiorly along the nerve root confirming epidural flow. Subsequently, a test dose of 1.5 cc of 1% lidocaine solution was administered and patient was observed for two minutes for signs or symptoms of complications, including abdominal pain, shortness of breath, bilateral upper or lower extremity weakness, nausea and vomiting, prior to steroid injection. At this point, a total of 3cc or 20mg of dexamethasone and 80mg of Depo medrol was injected without incident. The procedure tolerated the procedure well without signs or symptoms of complications prior to transfer to the recovery area continued monitoring without incident. The patient was then transferred to the recovery area where they were observed for an appropriate time after the injection. The patient reported a VAS score of 7 prior to the procedure and a post-proc edure VAS of 0. POST OP INSTRUCTIONS The patient was provided a Pain Log to continue to record their response to the target-specific procedure prior to follow-up visit with their referring physician. Additionally, specific post-injection care instructions and a contact number to our office were provided if concerns arise regarding possible complications associated with the procedure are suspected.
== END 2020-11-04 09:17 | disposition home or self-care (01) ==
LOC: RAD 07:34
PROVIDERS: PCP Internal Medicine; Referring Provider Physical Medicine & Rehabilitation; Visit Provider Physical Medicine & Rehabilitation
DX: M48.061 Spinal stenosis, lumbar region without neurogenic claudication (principal); M51.16 Intervertebral disc disorders with radiculopathy, lumbar region
CPT/HCPCS: 64483; 99152; J1040; J1100; J2250; J3010

== ENCOUNTER 2021-06-21 10:28 | Inpatient (IN) | payer MEDICARE, SELFPAY ==
[2021-06-21] VITALS (28 sets, daily range): BP systolic 111–142; BP diastolic 53–79; PULSE 65–122; RESP 16–22; TEMP 36.6–36.7; O2SAT 93–98; BMI 23.3
--- NOTE | 2021-06-21 10:35 | DI.RAD.S_ITS ---
PROCEDURE: XR CHEST 1V INDICATIONS: chest pain TECHNIQUE: One view of the chest was acquired. COMPARISON: [facility], CR, XR CHEST 1V, 03/24/2019, 11:51. FINDINGS: Surgical changes and devices: None. Lungs and pleura: There is a questionable right mid lung pulmonary nodule. The lungs are otherwise clear. Mediastinum: Mediastinal contours appear normal. Heart size is normal. Bones and chest wall: No suspicious bony lesions. Overlying soft tissues appear unremarkable. IMPRESSION: Questionable right pulmonary nodule. Short interval repeat recommended. No other acute cardiopulmonary findings. Dictated by: Vane Sullivan M.D. on 06/21/2021 at 10:51 Approved by: Vane Sullivan M.D. on 06/21/2021 at 10:53
[2021-06-21 10:49] LABS: Add Manual Diff / Slide Review NO; Basophils Absolute Auto 100 /uL (0-100); Basophils Percent Auto 1.2 % (0-2); Eosinophils Absolute Auto 400 /uL (0-450); Eosinophils Percent Auto 5.2 % (2-4); Hematocrit 41.1 % (36-46); Lymphocytes Absolute Auto 1700 /uL (1100-4500); Lymphocytes Percent Auto 20.8 % (25-40); Mean Corpuscular Hemoglobin 32.1 PG (26-34); Mean Corpuscular Volume 94.4 fL (80-100); Monocytes Absolute Auto 500 /uL (0-900); Monocytes Percent Auto 6.6 % (3-14); Neutrophils Absolute Auto 5600 /uL (1500-7000); Neutrophils Percent Auto 66.2 % (50-75); Platelet Count 262 X10^3/uL (150-400); Red Blood Cell Count 4.35 X10^6/uL (4.0-5.2); Red Cell Distribution Width 13.6 % (11.6-14.8); White Blood Cell Count 8.4 X10^3/uL (4.5-11.0)
[2021-06-21 10:56] LABS: Prothrombin Time 10.7 SECONDS (10.1-12.7)
[2021-06-21 10:58] LABS: PTT Partial Thromboplastin Tim 27 SECONDS (26.4-36.2)
[2021-06-21 11:01] LABS: Alanine Aminotransferase 15 IU/L (<35); Albumin 4.7 g/dL (3.5-5.0); Albumin Globulin Ratio 1.3 (1.0-2.8); Alkaline Phosphatase 76 U/L (38-126); Aspartate Aminotransferase 22 IU/L (14-36); BUN Creatinine Ratio 19.8 (6-22); Bilirubin Total 0.5 mg/dL (0.2-1.3); Blood Urea Nitrogen 17 mg/dL (7-17); Calcium 9.2 mg/dL (8.4-10.2); Carbon Dioxide 25 mmol/L (22-32); Chloride 109 mmol/L (98-107); Creatine Kinase 74 U/L (30-135); Estimated Glomerular Filt Rate > 60 mL/min (>60); Globulin 3.6 g/dL (1.7-4.1); Glucose 103 mg/dL (80-110); HEMOLYSIS < 15 (0-50); Lipase 75 U/L (23-300); Magnesium 1.8 mg/dL (1.6-2.3); Potassium 3.6 mmol/L (3.4-5.1); Sodium 143 mmol/L (137-145); Total Protein 8.3 g/dL (6.3-8.2)
[2021-06-21 11:12] LABS: Troponin I 0.056 ng/mL (0.01-0.034)
--- NOTE | 2021-06-21 11:40 | ED.CHESTPAIN ---
HPI - Chest Pain General Chief Complaint: Chest Pain Stated Complaint: SOB Dyspnea Tightness in chest Time Seen by Provider: 06/21/21 11:28 Source: patient Mode of arrival: Wheelchair Limitations: no limitations Limitations: no limitations History of Present Illness HPI narrative: This is a 76-year-old female comes emergency department with complaint of shortness of breath and chest pressure which is exertional that started today. Patient was out for her normal walk she had some while walking and going up and down the stairs in her home became very short of breath and tachypneic and had to stop and rest. No syncope or lightheadedness. She has centralized pressure with no radiation, no diaphoresis, no nausea or vomiting, no swelling in her extremities. She feels a little wobbly afterwards and has to take a moment this started about 8:00 a.m. this morning. Patient does note she has a history of prior pulmonary emboli in March of 2019 unclear if it was provoked but she did have flights to [facility] followed by flights to [place] in January of 2020. She was on Eliquis until last month her oncologist had been following her D-dimers think continued to be elevated so he had decreased her dose but not stopped it. It was stopped abruptly by his physician. She is normally on levothyroxine and Celebrex. She does not take anything for hypertension, dyslipidemia diabetes. She has a remote history of breast cancer 20 years ago with lumpectomy and chemo and radiation. She had arthroscopic hip surgery on her labrum March 21 of this year. She is allergic penicillin. No tobacco, 1 small alcoholic drink daily, no illicit. Dr. Sevilla is her primary care physician and Dr. Remy is her oncologist. Related Data Home Medications Medication Instructions Recorded Confirmed calcium carbonate 500 mg-vitamin 1 tab PO DAILY 04/09/19 01/03/21 D3 5 mcg (200 unit) tablet (Calcium 500 + D) cholecalciferol (vitamin D3) 50 2,000 unit PO DAILY 04/09/19 01/03/21 mcg (2,000 unit) tablet (Vitamin D3) eszopiclone 1 mg tablet 1 mg PO BEDTIME 04/09/19 01/03/21 omeprazole 20 mg capsule,delayed 20 mg DAILY 04/09/19 01/03/21 release apixaban 5 mg tablet (Eliquis) 5 mg PO BID 10/04/20 01/03/21 Previous Rx's Medication Instructions Recorded levothyroxine 75 mcg tablet 75 mcg PO QAM #90 tab 03/21/18 (Synthroid) celecoxib 200 mg capsule (Celebrex) 200 mg PO DAILY #90 cap 03/08/21 Allergies Allergy/AdvReac Type Severity Reaction Status Date / Time penicillin G [PENICILLIN G] AdvReac Intermediate SWELLING, Verified 06/21/21 10:35 ITCHING Review of Systems Review of Systems ROS Unobtainable: All systems reviewed & are unremarkable except as noted in HPI and below Patient History Medical History Degenerative tear of acetabular labrum of right hip Facet arthropathy, lumbar Hypothyroid Lumbar radiculopathy Right knee DJD Sjogrens syndrome Surgical History H/O lumpectomy Hx of appendectomy Social History Smoking Status: Former smoker Smoking Status: Former smoker tobacco type: cigarettes alcohol intake frequency: holidays/special occasions only Alcohol type: wine Substance Use Type: does not use Exam Narrative Exam Narrative: GENERAL: Alert and oriented x three, mild distress. HEENT: Head normocephalic, atraumatic, EOMI, pupils reactive, face symmetric, moist mucous membranes NECK: Supple, full range of motion CARDIOVASCULAR: Regular rate and rhythm without murmurs, rubs or gallops. No JVD. RESPIRATORY: Breath sounds equal bilaterally, no wheezes rales or rhonchi. No tachypnea accessory muscle use. ABDOMEN: Soft, nontender. Normoactive bowel sounds all 4 quadrants. No guarding or rebound, rigidity, no mass : No CVA tenderness EXTREMITIES: Normal range of motion, no edema. Neurovascularly intact NEUROLOGICAL: Cranial nerves II through XII grossly intact. Moving all extremities SKIN: Warm, dry, no petechiae, no rashes or lesions. Initial Vital Signs Initial Vital Signs: Vital Signs Temperature 97.8 F 06/21/21 10:30 Pulse Rate 121 H 06/21/21 10:30 Respiratory Rate 16 06/21/21 10:30 Blood Pressure 128/79 06/21/21 10:30 Pulse Oximetry 98 06/21/21 10:30 Scores HEART Score Heart Score history: Highly Suspicious Heart Score EKG: Normal Heart Score Age: > or = 65 years old Heart Score risk factors: No known risk factors Heart Score troponin: 1-3 times normal limit Heart Score Total: 5 PERC Score Age greater than or equal to 50 years: Yes Heart rate greater than or equal to 100 bpm: Yes Room Air O2 Sat less than 95%: No Unilateral leg swelling: No Recent trauma or surgery: Yes (arthroscopic hip sx 4 months ago.) Hemoptysis: No Prior PE or DVT: Yes Hormone Use: No Total PERC Score: 4 Course Orders Ordered: ED Orders 06/21/21 10:35 XR chest 1V Stat EKG-12 Lead Stat 06/21/21 10:42 BNP [NT-proBNP (BNP-Adult 18+)] Stat Complete Blood Count AUTO DIFF Stat Comprehensive Metabolic Panel Stat D Dimer Stat Lipase Stat Magnesium Stat Partial Thromboplastin Time Stat Prothrombin Time INR Stat Troponin & CK Cardiac Panel Stat 06/21/21 11:59 CT angio chest PE protocol Stat 06/21/21 12:50 Trop I [Troponin I] Stat 06/21/21 13:51 Partial Thromboplastin Time Q6H 06/22/21 00:45 Partial Thromboplastin Time Q6H 06/22/21 06:45 Partial Thromboplastin Time Q6H Heparin Sodium/Dextrose (Heparin Drip) 25,000 unit in 500 mls @ 20 mls/hr IV CONT AMBROSE; Protocol Last Titration: 06/21/21 14:37 Dose: 0 units/hr, 0 mls/hr Documented by: IRINAOTEChacha Admin: 06/21/21 13:22 Dose: 1,000 units/hr, 20 mls/hr Documented by: BTONEGerman Discontinued Medications Aspirin (Aspirin 81 Mg Chew Tab) 324 mg PO NOW ONE Stop: 06/21/21 12:00 Last Admin: 06/21/21 12:18 Dose: 324 mg Documented by: ROLANDOONEGerman Heparin Sodium (Porcine) (Heparin 5,000 Unit/Ml Vial) 7,500 unit IV NOW ONE Stop: 06/21/21 12:36 Last Admin: 06/21/21 13:17 Dose: 7,500 unit Documented by: ROLANDOONER Heparin Sodium (Porcine) (Heparin 5,000 Unit/Ml Vial) 5,000 unit IV NOW ONE Stop: 06/21/21 13:11 Last Admin: 06/21/21 13:27 Dose: Not Given Documented by: BTONER Consultations Consultation #1: Jeanne, hospitalist who accepts for admission for pulmonary emboli with mild right heart strain and troponins that are indeterminate but trending upward. No acute EKG changes. No chest pain or shortness of breath with rest but with exertion is present. Time: 14:02 Vital Signs Vital signs: Vital Signs - 8 hr 06/21/21 11:00 06/21/21 11:30 06/21/21 11:50 Pulse Rate 92 H 86 91 H Respiratory Rate 19 19 Blood Pressure 119/57 L 111/56 L 132/60 Pulse Oximetry 98 98 95 06/21/21 12:00 06/21/21 12:30 06/21/21 13:00 Pulse Rate 85 82 81 Respiratory Rate 19 17 Blood Pressure 112/53 L Pulse Oximetry 95 96 96 06/21/21 13:26 06/21/21 13:30 06/21/21 13:45 Pulse Rate 75 75 73 Respiratory Rate 20 20 Blood Pressure 122/63 117/63 118/61 Pulse Oximetry 96 96 95 06/21/21 14:00 06/21/21 14:15 Pulse Rate 72 74 Respiratory Rate 18 20 Blood Pressure 115/60 142/63 H Pulse Oximetry 94 95 MDM - Chest Pain Lab Data Result diagrams: 06/21/21 10:42 06/21/21 10:42 Labs: Lab Results 06/21/21 06/21/21 06/21/21 Range/Units 10:42 10:42 10:42 WBC 8.4 (4.5-11.0) X10^3/uL RBC 4.35 (4.0-5.2) X10^6/uL Hgb 14.0 (12.0-16.0) g/dL Hct 41.1 (36-46) % MCV 94.4 (80-100) fL MCH 32.1 (26-34) PG MCHC 34.0 (30-36) % RDW 13.6 (11.6-14.8) % Plt Count 262 (150-400) X10^3/uL Neut % (Auto) 66.2 (50-75) % Lymph % (Auto) 20.8 L (25-40) % [place] % (Auto) 6.6 (3-14) % Eos % (Auto) 5.2 H (2-4) % Baso % (Auto) 1.2 (0-2) % Neut # (Auto) 5600 (1164-0240) /uL Lymph # (Auto) 1700 (0017-9123) /uL [place] # (Auto) 500 (0-900) /uL Eos # (Auto) 400 (0-450) /uL Baso # (Auto) 100 (0-100) /uL PT 10.7 (10.1-12.7) SECONDS INR 1.0 (0.9-1.3) APTT 27 (26.4-36.2) SECONDS D-Dimer (<230) ng/mL Sodium 143 (137-145) mmol/L Potassium 3.6 (3.4-5.1) mmol/L Chloride 109 H (98-107) mmol/L Carbon Dioxide 25 (22-32) mmol/L BUN 17 (7-17) mg/dL Creatinine 0.86 (0.52-1.04) mg/dL Estimated GFR > 60 (>60) mL/min BUN/Creatinine Ratio 19.8 (6-22) Glucose 103 (80-110) mg/dL Calcium 9.2 (8.4-10.2) mg/dL Magnesium 1.8 (1.6-2.3) mg/dL Total Bilirubin 0.5 (0.2-1.3) mg/dL AST 22 (14-36) IU/L ALT 15 (<35) IU/L Alkaline Phosphatase 76 (38-126) U/L Total Creatine Kinase 74 (30-135) U/L CK-MB (CK-2) TNP CK-MB (CK-2) Rel Index TNP Troponin I 0.056 H (0.01-0.034) ng/mL NT-Pro-B Natriuret Pep (<450) pg/mL Total Protein 8.3 H (6.3-8.2) g/dL Albumin 4.7 (3.5-5.0) g/dL Globulin 3.6 (1.7-4.1) g/dL Albumin/Globulin Ratio 1.3 (1.0-2.8) Lipase 75 (23-300) U/L 0406/21/21 06/21/21 Range/Units 10:42 10:42 12:50 WBC (4.5-11.0) X10^3/uL RBC (4.0-5.2) X10^6/uL Hgb (12.0-16.0) g/dL Hct (36-46) % MCV (80-100) fL MCH (26-34) PG MCHC (30-36) % RDW (11.6-14.8) % Plt Count (150-400) X10^3/uL Neut % (Auto) (50-75) % Lymph % (Auto) (25-40) % [place] % (Auto) (3-14) % Eos % (Auto) (2-4) % Baso % (Auto) (0-2) % Neut # (Auto) (5813-4398) /uL Lymph # (Auto) (2208-3994) /uL [place] # (Auto) (0-900) /uL Eos # (Auto) (0-450) /uL Baso # (Auto) (0-100) /uL PT (10.1-12.7) SECONDS INR (0.9-1.3) APTT (26.4-36.2) SECONDS D-Dimer 2139 H (<230) ng/mL Sodium (137-145) mmol/L Potassium (3.4-5.1) mmol/L Chloride (98-107) mmol/L Carbon Dioxide (22-32) mmol/L BUN (7-17) mg/dL Creatinine (0.52-1.04) mg/dL Estimated GFR (>60) mL/min BUN/Creatinine Ratio (6-22) Glucose (80-110) mg/dL Calcium (8.4-10.2) mg/dL Magnesium (1.6-2.3) mg/dL Total Bilirubin (0.2-1.3) mg/dL AST (14-36) IU/L ALT (<35) IU/L Alkaline Phosphatase (38-126) U/L Total Creatine Kinase (30-135) U/L CK-MB (CK-2) CK-MB (CK-2) Rel Index Troponin I 0.104 H (0.01-0.034) ng/mL NT-Pro-B Natriuret Pep 83 (<450) pg/mL Total Protein (6.3-8.2) g/dL Albumin (3.5-5.0) g/dL Globulin (1.7-4.1) g/dL Albumin/Globulin Ratio (1.0-2.8) Lipase (23-300) U/L 06/21/21 Range/Units 13:51 WBC (4.5-11.0) X10^3/uL RBC (4.0-5.2) X10^6/uL Hgb (12.0-16.0) g/dL Hct (36-46) % MCV (80-100) fL MCH (26-34) PG MCHC (30-36) % RDW (11.6-14.8) % Plt Count (150-400) X10^3/uL Neut % (Auto) (50-75) % Lymph % (Auto) (25-40) % [place] % (Auto) (3-14) % Eos % (Auto) (2-4) % Baso % (Auto) (0-2) % Neut # (Auto) (1460-0907) /uL Lymph # (Auto) (9050-2002) /uL [place] # (Auto) (0-900) /uL Eos # (Auto) (0-450) /uL Baso # (Auto) (0-100) /uL PT (10.1-12.7) SECONDS INR (0.9-1.3) APTT > 400 H* D (26.4-36.2) SECONDS D-Dimer (<230) ng/mL Sodium (137-145) mmol/L Potassium (3.4-5.1) mmol/L Chloride (98-107) mmol/L Carbon Dioxide (22-32) mmol/L BUN (7-17) mg/dL Creatinine (0.52-1.04) mg/dL Estimated GFR (>60) mL/min BUN/Creatinine Ratio (6-22) Glucose (80-110) mg/dL Calcium (8.4-10.2) mg/dL Magnesium (1.6-2.3) mg/dL Total Bilirubin (0.2-1.3) mg/dL AST (14-36) IU/L ALT (<35) IU/L Alkaline Phosphatase (38-126) U/L Total Creatine Kinase (30-135) U/L CK-MB (CK-2) CK-MB (CK-2) Rel Index Troponin I (0.01-0.034) ng/mL NT-Pro-B Natriuret Pep (<450) pg/mL Total Protein (6.3-8.2) g/dL Albumin (3.5-5.0) g/dL Globulin (1.7-4.1) g/dL Albumin/Globulin Ratio (1.0-2.8) Lipase (23-300) U/L Imaging Data Chest x-ray: Radiologist's Impression: [address] [address] XRay Report Signed Patient: Ev Regalado MR#: [id number] : 1945 Acct:[id number] Age/Sex: 76 / F Date of Service: 06/21/21 Loc: ED Accession Number: [id number] ?? Procedure: XR chest 1V Ordering Provider: Yaz Camilo D.O. PROCEDURE:? XR CHEST 1V ? INDICATIONS:? chest pain ? TECHNIQUE:? One view of the chest was acquired.? ? COMPARISON:? [facility], CR, XR CHEST 1V, 03/24/2019, 11:51. ? FINDINGS:? ? Surgical changes and devices:? None.? ? Lungs and pleura:? There is a questionable right mid lung pulmonary nodule.? The lungs are otherwise clear. ? Mediastinum:? Mediastinal contours appear normal.? Heart size is normal.? ? Bones and chest wall:? No suspicious bony lesions.? Overlying soft tissues appear unremarkable.? ? IMPRESSION:? Questionable right pulmonary nodule.? Short interval repeat recommended.? No other acute cardiopulmonary findings. ? ? Dictated by: Vane Sullivan M.D. on 06/21/2021 at 10:51 ? ? Approved by: Vane Sullivan M.D. on 06/21/2021 at 10:53 CT scan - chest: Radiologist's Impression: Launch?Image [address] [address] [address] Scan Report Signed Patient: Ev Regalado MR#: [id number] : 1945 Acct:[id number] Age/Sex: 76 / F Date of Service: 06/21/21 Loc: ED Accession Number: [id number] ?? Procedure: CT angio chest PE protocol Ordering Provider: Yaz Camilo D.O. PROCEDURE:? CT ANGIO CHEST PE PROTOCOL ? INDICATIONS:? chest pain, sob, hx PE ? TECHNIQUE:? After the administration of intravenous contrast, 2 mm thick sections acquired from the pulmonary apices to the posterior costophrenic angles.? 3-dimensional maximum intensity projection (MIP) coronal and sagittal reformats were then acquired through the thorax.? For radiation dose reduction, the following was used:? automated exposure control, adjustment of mA and/or kV according to patient size.? ? COMPARISON:? [facility], CT, CT ANGIO CHEST PE PROTOCOL, 03/24/2019, 12:37. ? FINDINGS:? Image quality:? Excellent.? ? Pulmonary arteries:? Extensive pulmonary emboli can be seen.? Within the right main pulmonary artery, there is a saddle embolus seen, which involves the right upper lobe pulmonary arteries.? Proximal right middle lobe pulmonary embolism can also be seen.? Pulmonary embolism can also be seen involving the proximal and segmental right lower lobe pulmonary arteries.? On the left, several left lower lobe segmental branches are involved.? No definite involvement of the left upper lobe can be seen.? The pulmonary arteries overall demonstrate normal size. ? Lungs and pleura:? Mild emphysematous changes are seen, with mild subpleural bleb formation.? Likely scarring or atelectasis can be seen within the dependent lung bases.? No pleural effusions or pneumothorax.? Central and peripheral airways are patent.? ? Mediastinum:? The right heart is mildly enlarged in size.? No significant pericardial effusion is seen.? No mediastinal or hilar adenopathy.? Thoracic aorta is normal in caliber and enhancement.? Esophagus is normal in caliber.? There is a small hiatal hernia.? ? Bones and chest wall:? No suspicious bony lesions.? Ribs and thoracic spine appear intact throughout.? Age-appropriate bony degenerative changes are seen.? Accentuated thoracic kyphosis is seen. ? ? Thyroid gland demonstrates no significant abnormality.? No axillary or supraclavicular adenopathy.? ? Abdomen:? Visualized upper abdominal solid organs appear normal in the early arterial phase of enhancement.? IMPRESSION:? Extensive pulmonary emboli can be seen, which involve 4 of the 5 lobes of the lung, with a greater burden of pulmonary emboli on the right than on the left. ? Likely mild right heart strain. ? (The burden of pulmonary embolism is not as extensive as was seen on the 03/24/2019 examination.) ? ? ? Incidental note is made of: Emphysematous changes Small hiatal hernia ? Note:? Critical finding of pulmonary embolism discussed by telephone with Dr. Camilo at 11:35 a.m. [place] time on June 21, 2021.? ? ? Dictated by: Manuel Harris M.D. on 06/21/2021 at 11:31 ? ? Approved by: Manuel Harris M.D. on 06/21/2021 at 11:37?? ECG Data Attestation: I personally reviewed and interpreted this ECG as follows: Prior ECG tracings: available for review Interpretation: Sinus tachycardia, rate of 101 RI 184 QRS 82 and QTC of 456. No acute ST elevation or depression. 03/24/2019 prior EKG does not show any acute changes. MDM Narrative Medical decision making narrative: This is a 76-year-old female comes emergency department with complaint of exertional chest pain and shortness of breath that started rather abruptly today. Patient has been off her Eliquis for 1 month after having developed a pulmonary emboli in 2019. She does not have other cardiac risk factors no acute EKG changes but troponin is indeterminate. Patient's chest x-ray shows a possible pulmonary nodule but no other changes. CBC, CMP and renal function do not show major changes. Patient had ambulated to the restroom with minimal symptoms but has been tachycardic. CT angio was ordered to evaluate for pulmonary emboli. Which is positive for extensive clot burden right greater than left. No saddle PE or main pulmonary artery PE. Patient was started on heparin. Initial troponin is indeterminate to our repeat shows trending upwards but not positive. Discussed with hospitalist Dr. Angel to keep for admission, echo, anticoagulation. Patient is not likely interventional can at this time her PESI score is 125 with a Hestia score of 0. Discharge Plan Departure Patient Disposition: Admitted As Inpatient Clinical Impression: Pulmonary embolism Admit Date/Time: 06/21/21 14:21 Admit Provider: Noemi Angel
--- NOTE | 2021-06-21 11:59 | DI.CT.S_ITS ---
PROCEDURE: CT ANGIO CHEST PE PROTOCOL INDICATIONS: chest pain, sob, hx PE TECHNIQUE: After the administration of intravenous contrast, 2 mm thick sections acquired from the pulmonary apices to the posterior costophrenic angles. 3-dimensional maximum intensity projection (MIP) coronal and sagittal reformats were then acquired through the thorax. For radiation dose reduction, the following was used: automated exposure control, adjustment of mA and/or kV according to patient size. COMPARISON: [facility], CT, CT ANGIO CHEST PE PROTOCOL, 03/24/2019, 12:37. FINDINGS: Image quality: Excellent. Pulmonary arteries: Extensive pulmonary emboli can be seen. Within the right main pulmonary artery, there is a saddle embolus seen, which involves the right upper lobe pulmonary arteries. Proximal right middle lobe pulmonary embolism can also be seen. Pulmonary embolism can also be seen involving the proximal and segmental right lower lobe pulmonary arteries. On the left, several left lower lobe segmental branches are involved. No definite involvement of the left upper lobe can be seen. The pulmonary arteries overall demonstrate normal size. Lungs and pleura: Mild emphysematous changes are seen, with mild subpleural bleb formation. Likely scarring or atelectasis can be seen within the dependent lung bases. No pleural effusions or pneumothorax. Central and peripheral airways are patent. Mediastinum: The right heart is mildly enlarged in size. No significant pericardial effusion is seen. No mediastinal or hilar adenopathy. Thoracic aorta is normal in caliber and enhancement. Esophagus is normal in caliber. There is a small hiatal hernia. Bones and chest wall: No suspicious bony lesions. Ribs and thoracic spine appear intact throughout. Age-appropriate bony degenerative changes are seen. Accentuated thoracic kyphosis is seen. Thyroid gland demonstrates no significant abnormality. No axillary or supraclavicular adenopathy. Abdomen: Visualized upper abdominal solid organs appear normal in the early arterial phase of enhancement. IMPRESSION: Extensive pulmonary emboli can be seen, which involve 4 of the 5 lobes of the lung, with a greater burden of pulmonary emboli on the right than on the left. Likely mild right heart strain. (The burden of pulmonary embolism is not as extensive as was seen on the 03/24/2019 examination.) Incidental note is made of: Emphysematous changes Small hiatal hernia Note: Critical finding of pulmonary embolism discussed by telephone with Dr. Camilo at 11:35 a.m. [place] time on June 21, 2021. Dictated by: Manuel Harris M.D. on 06/21/2021 at 11:31 Approved by: Manuel Harris M.D. on 06/21/2021 at 11:37
[2021-06-21 12:07] LABS: D Dimer 2139 ng/mL (<230)
[2021-06-21 12:09] LABS: NT-proBNP (BNP-Adult 18+) 83 pg/mL (<450)
[2021-06-21] MEDS: ASPIRIN 81 MG CHEW TAB 324 MG PO (12:18)
--- NOTE | 2021-06-21 13:11 | PC.NURSE ---
did not take two vials, grabbed one by mistake.
[2021-06-21] MEDS: HEPARIN 5,000 UNIT/ML VIAL 7500 UNIT IV (13:17)
[2021-06-21 13:20] LABS: Troponin I 0.104 ng/mL (0.01-0.034)
[2021-06-21] MEDS: HEPARIN DRIP 25,000 UNIT/500 ML IV.SOLN 20 UNIT IV (13:22)
[2021-06-21 14:32] LABS: PTT Partial Thromboplastin Tim > 400 SECONDS (26.4-36.2)
[2021-06-21 16:12] LABS: PTT Partial Thromboplastin Tim > 400 SECONDS (26.4-36.2)
[2021-06-21 17:55] LABS: COVID19 -Nasal RAPID Negative (Negative)
--- NOTE | 2021-06-21 18:34 | PC.NURSE ---
spoke with dr upton about 2 elevated PTT results and that the heparin was put on hold. new orders rec'd and noted.
[2021-06-21 18:49] LABS: PTT Partial Thromboplastin Tim 58 SECONDS (26.4-36.2)
--- NOTE | 2021-06-21 19:30 | PC.NURSE ---
late entry, after critical PTT result, protocol was to stop heparin gtt, recheck lab in 60min. verified with dr. goodwin.
--- NOTE | 2021-06-21 20:32 | PM.HP.1 ---
History of Present Illness History of Present Illness Date Patient Seen: 06/21/21 Time Patient Seen: 20:32 Chief complaint: Saddle PE, dyspnea Narrative: Ev Regalado is a 76-year-old female with a history of stage II lobular breast cancer in remission presented with shortness of breath on exertion. She normally goes for a 1 hour daily walking trip with a friend of hers and found that she was breathing hard and getting very short of breath. She then felt better and then completed her hike. When she got home she sat down and it subsided after about 30 minutes. She went into her bedroom to change from her hiking closed her street clothes and when she got back into the kitchen she found that she was breathing hard again and now with chest pain. Denied headache, difficulty swallowing, nausea or vomiting abdominal pain, changes in bladder or bowel control or patterns or neuropathies. She decided to go to the emergency department at 10:30 a.m.. Patient has previously had a rather large pulmonary embolism in March 2019 and was started on apixaban and her primary physician told her she would only need to be on it for 3 months. She then spoke to her oncologist who had been following her D-dimers and informed her that she needed to be continuing to take it however when she went into the Medicare donut hole the cost went up to over 400 a month for this medication and she was no longer able to take it. She resumed taking it and again was told by her PCP that she did no longer needed to be on blood thinners. She estimates that she is not been taking Eliquis for 2-3 months. Patient's initial D-dimer on presentation to the emergency department was 2139. They did a CT angio of her chest which indicated ?Extensive pulmonary emboli can be seen, which involve 4 of the 5 lobes of the lung, with a greater burden of pulmonary emboli on the right than on the left. Likely mild right heart strain.? It also indicated that this saddle PE was slightly smaller than her previous pulmonary embolism. Today's D-dimer is as stated above, CBC is unremarkable, chloride is 109, troponin was 0.108 and 0.116 and will be trended until it starts to decline, COVID-19 PCR is negative. Patient History Medical History Degenerative tear of acetabular labrum of right hip Facet arthropathy, lumbar Hypothyroid Lumbar radiculopathy Right knee DJD Sjogrens syndrome Surgical History H/O lumpectomy Hx of appendectomy Family & Social History Family History (Updated 06/21/21 @ 23:31 by PATRICIA Traylor) Mother Breast cancer Father No significant medical problems Social History: household members spouse Prior Living Arrangements House Safety & Behavioral: Feels Safe in Current Yes Environment Been Physically Hurt or No Threatened By a Person Suicidal Ideation Description None Suicide Plan Description No Plan Tobacco & Substance use: Smoking Status Former smoker quit 22 years ago alcohol intake frequency wine, holidays/special occasion Substance Use Type does not use Meds Home Medications and Allergies Home Medications Medication Instructions Recorded Confirmed Type levothyroxine 75 mcg tablet 75 mcg PO QAM #90 tab 03/21/18 06/21/21 Rx (Synthroid) calcium carbonate 500 mg-vitamin 1 tab PO DAILY 04/09/19 06/21/21 History D3 5 mcg (200 unit) tablet (Calcium 500 + D) cholecalciferol (vitamin D3) 50 2,000 unit PO DAILY 04/09/19 06/21/21 History mcg (2,000 unit) tablet (Vitamin D3) eszopiclone 1 mg tablet 1 mg PO BEDTIME PRN 04/09/19 06/21/21 History omeprazole 20 mg capsule,delayed 20 mg DAILY 04/09/19 06/21/21 History release celecoxib 200 mg capsule (Celebrex) 200 mg PO DAILY #90 cap 03/08/21 06/21/21 Rx Allergies Allergy/AdvReac Type Severity Reaction Status Date / Time penicillin G [PENICILLIN G] AdvReac Intermediate SWELLING, Verified 06/21/21 10:35 ITCHING Review of Systems Review of Systems ROS: Yes All systems reviewed with the patient and are negative except as otherwise documented Exam Vital Signs (past 8 hours): - 06/21/21 13:00 06/21/21 13:26 06/21/21 13:30 Pulse Rate 81 75 75 Respiratory Rate 20 Blood Pressure 122/63 117/63 Pulse Oximetry 96 96 96 06/21/21 13:45 06/21/21 14:00 06/21/21 14:15 Pulse Rate 73 72 74 Respiratory Rate 20 18 20 Blood Pressure 118/61 115/60 142/63 H Pulse Oximetry 95 94 95 06/21/21 14:30 06/21/21 14:45 06/21/21 15:00 Pulse Rate 81 74 72 Respiratory Rate Blood Pressure 127/59 L 119/61 118/63 Pulse Oximetry 95 95 94 06/21/21 15:15 06/21/21 15:30 06/21/21 15:45 Pulse Rate 68 69 69 Respiratory Rate 20 20 18 Blood Pressure 116/58 L 119/61 130/63 Pulse Oximetry 94 94 95 06/21/21 16:00 06/21/21 16:15 06/21/21 16:30 Pulse Rate 71 70 67 Respiratory Rate 20 19 19 Blood Pressure 127/63 124/64 126/61 Pulse Oximetry 95 95 95 06/21/21 16:45 06/21/21 17:00 06/21/21 17:15 Pulse Rate 67 71 65 Respiratory Rate 17 22 19 Blood Pressure 130/60 125/61 121/59 L Pulse Oximetry 95 95 95 06/21/21 17:30 06/21/21 17:45 Pulse Rate 67 68 Respiratory Rate 16 17 Blood Pressure 117/57 L 114/57 L Pulse Oximetry 93 93 Oxygen Delivery Method Room Air Narrative Exam Narrative: Gen: Alert, oriented, well-developed 76 y.o. female, fatigued HEENT: normocephalic, atraumatic, conjunctiva clear, sclera non-icteric, oral mucosa pink and moist Neck: supple, full ROM, no JVD, trachea is midline Resp: Lungs CTA, non-labored breathing CV: RRR, no murmur or rubs Abd: soft, non-tender, normoactive BTs Skin: no lesions or rashes, dry and intact Neuro: Alert and oriented X 4 w/no focal deficits. Speech clear and coherent. Extremities: moves all 4 extremities, is ambulatory, negative Vicki?s sign Psyche: very pleasant, normal mood and affect. Objective Labs Result Diagrams: 06/21/21 10:42 06/21/21 10:42 Labs: Laboratory Results - last 24 hr 06/21/21 06/21/21 06/21/21 10:42 10:42 10:42 WBC 8.4 RBC 4.35 Hgb 14.0 Hct 41.1 MCV 94.4 MCH 32.1 MCHC 34.0 RDW 13.6 Plt Count 262 Neut % (Auto) 66.2 Lymph % (Auto) 20.8 L [place] % (Auto) 6.6 Eos % (Auto) 5.2 H Baso % (Auto) 1.2 Neut # (Auto) 5600 Lymph # (Auto) 1700 [place] # (Auto) 500 Eos # (Auto) 400 Baso # (Auto) 100 PT 10.7 INR 1.0 APTT 27 D-Dimer Sodium 143 Potassium 3.6 Chloride 109 H Carbon Dioxide 25 BUN 17 Creatinine 0.86 Estimated GFR > 60 BUN/Creatinine Ratio 19.8 Glucose 103 Calcium 9.2 Magnesium 1.8 Total Bilirubin 0.5 AST 22 ALT 15 Alkaline Phosphatase 76 Total Creatine Kinase 74 CK-MB (CK-2) TNP CK-MB (CK-2) Rel Index TNP Troponin I 0.056 H NT-Pro-B Natriuret Pep Total Protein 8.3 H Albumin 4.7 Globulin 3.6 Albumin/Globulin Ratio 1.3 Lipase 75 SARS-CoV-2 (PCR) 06/21/21 06/21/21 06/21/21 10:42 10:42 12:50 WBC RBC Hgb Hct MCV MCH MCHC RDW Plt Count Neut % (Auto) Lymph % (Auto) [place] % (Auto) Eos % (Auto) Baso % (Auto) Neut # (Auto) Lymph # (Auto) [place] # (Auto) Eos # (Auto) Baso # (Auto) PT INR APTT D-Dimer 2139 H Sodium Potassium Chloride Carbon Dioxide BUN Creatinine Estimated GFR BUN/Creatinine Ratio Glucose Calcium Magnesium Total Bilirubin AST ALT Alkaline Phosphatase Total Creatine Kinase CK-MB (CK-2) CK-MB (CK-2) Rel Index Troponin I 0.104 H NT-Pro-B Natriuret Pep 83 Total Protein Albumin Globulin Albumin/Globulin Ratio Lipase SARS-CoV-2 (PCR) 06/21/21 06/21/21 06/21/21 13:51 15:41 16:15 WBC RBC Hgb Hct MCV MCH MCHC RDW Plt Count Neut % (Auto) Lymph % (Auto) [place] % (Auto) Eos % (Auto) Baso % (Auto) Neut # (Auto) Lymph # (Auto) [place] # (Auto) Eos # (Auto) Baso # (Auto) PT INR APTT > 400 H* D > 400 H* D-Dimer Sodium Potassium Chloride Carbon Dioxide BUN Creatinine Estimated GFR BUN/Creatinine Ratio Glucose Calcium Magnesium Total Bilirubin AST ALT Alkaline Phosphatase Total Creatine Kinase CK-MB (CK-2) CK-MB (CK-2) Rel Index Troponin I NT-Pro-B Natriuret Pep Total Protein Albumin Globulin Albumin/Globulin Ratio Lipase SARS-CoV-2 (PCR) Negative 06/21/21 18:30 WBC RBC Hgb Hct MCV MCH MCHC RDW Plt Count Neut % (Auto) Lymph % (Auto) [place] % (Auto) Eos % (Auto) Baso % (Auto) Neut # (Auto) Lymph # (Auto) [place] # (Auto) Eos # (Auto) Baso # (Auto) PT INR APTT 58 H D D-Dimer Sodium Potassium Chloride Carbon Dioxide BUN Creatinine Estimated GFR BUN/Creatinine Ratio Glucose Calcium Magnesium Total Bilirubin AST ALT Alkaline Phosphatase Total Creatine Kinase CK-MB (CK-2) CK-MB (CK-2) Rel Index Troponin I NT-Pro-B Natriuret Pep Total Protein Albumin Globulin Albumin/Globulin Ratio Lipase SARS-CoV-2 (PCR) Assessment & Plan Assessment & Plan narrative: Ev Regalado is admitted for further management and evaluation of a saddle pulmonary embolism involving 5 6 lobes due to discontinuance of anticoagulation medication. 1. Saddle embolism, acute, present on admission Per the CTA it involves 5 of 6 lobes and indicated mild right-sided heart strain She does have an elevated troponin which is increased slightly on the 2nd draw Continue trending troponins and if there is a significant increase over prior will need to contact [facility] per the patient's request for transfer if possible. Patient's heparin drip was apparently stopped in the ED at approximately 2:30 a.m. due to her PTT being greater than 400, subsequent PTT indicated a level of 59. It was decided to stop the heparin drip and to put her on Lovenox 1 mgs per kg which is 60 mg b.i.d. Echocardiogram in the morning to assess extent of right-sided heart strain Celebrex is discontinued due to possible interaction with anticoagulation and bleeding risk. Informed patient that she should eliminate the use of nonsteroidal anti-inflammatories for pain control. 2. Hypothyroidism, chronic, stable Continue home dose of levothyroxine 75 mcg p.o. q.a.m. VTE Prophylaxis: Wells risk score 10. Patient is receiving therapeutic dose of enoxaparin at 60 mg subQ b.i.d. Patient is admitted to the inpatient service due to the severity of disease, risks of further disease progression and this stay is expected to exceed 2 midnights. FEN: IV fluids: saline lock, diet: heart healthy, labs: CBC, C/BMP, liver enzymes, Mag, PT/INR Consultants None Dispo: Unknown at this time Code status: Full Code as discussed with the patient who identifies her , Juan Luis as her surrogate and POA. [X] I have utilized all available immediate resources to obtain, update, or review of the patient's current medications Time Spent With Patient Critical Care time: I spent a total of [] minutes of critical care time on this patient's care today; this time is exclusive of procedural time. Scores Wells' Criteria for PE Clinical signs and symptoms of DVT: Yes PE is #1 Dx or equally likely: Yes Heart rate > 100: Yes Immobilization at least 3 days or surg in previous 4 weeks: No History of PE or DVT: Yes Hemoptysis: No Malignancy w/Treatment within 6 months or palliative: Yes Wells' PE Score total: 10.0 Quality VTE Deep Vein Thrombosis/Pulmonary Embolism Present on Admission: Yes MIPS - Admit I confirm the patient?s Advance Care Plan is present, Code status is documented, Surrogate decision maker is in patient?s record [If Yes, STOP here]: Yes MIPS - DC The patient has current or prior documentation of left ventricular ejection fraction (LVEF) less than 40%, or moderate or severely depressed left ventricular systolic function.: No
[2021-06-21] MEDS: ENOXAPARIN 60 MG/0.6 ML SYRINGE SUBCUT (21:05)
[2021-06-21 21:10] LABS: Troponin I 0.116 ng/mL (0.01-0.034)
[2021-06-22] VITALS (7 sets, daily range): BP systolic 122–131; BP diastolic 54–59; PULSE 62–70; RESP 16–18; TEMP 36.4–36.8; O2SAT 94–98
--- NOTE | 2021-06-22 | DI.ECHO.S_ITS ---
[facility] +---------+ : : [address] [place] : : : : [id number] : : : : Phone: [phone]+ Echocardiogram Report + + :Name: STEPHANIE KENDRICK Study Date: 06/22/2021 Height: 63 in : :[facility] ReadingLocation: Weight: 132 lb : : Gender: Female BSA: 1.6 m2 : :: 1945 Age: 76 yrs BP: 131/58 mmHg: :Reason For Study: PE WITH RIGHT HEART STRAIN : :Ordering Physician: Song JENKINSformed By: Breana Mar : :Referring: FLORY JNEKINS : + + Interpretation Summary - The ejection fraction is estimated to be 60-65%. - Diastolic parameters suggest probable normal left ventricular diastolic function and normal filling pressures. - The right ventricle is normal in size and function. - RVSP around 34mmHg. - No significant valvular disease. - No prior studies available for comparison. Procedure: A two-dimensional transthoracic echocardiogram with color flow and Doppler was performed. The study quality was technically adequate. There is no prior echocardiogram noted for this patient. The patient was in sinus rhythm with heart rates between 60-80 bpm during the exam. Left Ventricle: The left ventricle is normal in size and wall thickness. The ejection fraction is estimated to be 60-65%. There are no obvious focal wall motion abnormalities noted but poor endocardial definition reduces the sensitivity for the detection of such. Diastolic parameters suggest probable normal left ventricular diastolic function and normal filling pressures. Right Ventricle: The right ventricle is normal in size and function. Atria: The left atrial size is normal. Right atrial size is normal. There is no Doppler evidence for an interatrial shunt. Mitral Valve: The mitral valve is normal in structure and function. There is trace mitral regurgitation. Aortic Valve: The aortic valve is trileaflet. The aortic valve opens well. There is no aortic valve stenosis. There is mild aortic regurgitation. Tricuspid Valve: The tricuspid valve leaflets are thin and pliable. There is mild tricuspid regurgitation. Pulmonic Valve: The pulmonic valve leaflets are thin and pliable; valve motion is normal. There is mild pulmonic regurgitation. Great Vessels: The aortic root is normal size. The ascending aorta could not be visualized. The IVC is of normal diameter and collapses greater than 50% with a sniff. This suggests a low right atrial pressure of 3 mm Hg. Pericardium/ Pleura There is no pericardial effusion. There is no pleural effusion. MMode/2D Measurements & Calculations LVIDd: 4.7 cm LVOT diam: 2.0 cm LVIDs: 3.1 cm Ao root diam: 3.1 cm FS: 34.2 % Ao Arch Diam (Prox Trans): 2.6 cm IVSd: 0.76 cm LVPWd: 0.78 cm LV yuen. diameter/BSA (cm/m^2): 2.9 LV sys. diameter/BSA (cm/m^2): 1.9 LA A2 area: 16.3 cm2 RA long axis: 4.6 cm LA A4 area: 13.5 cm2 RA area: 13.9 cm2 LA length (vol): 4.3 cm RA vol: 35.7 ml LA vol: 42.9 ml RA : 22.0 ml/m2 LA vol index: 26.5 ml/m2 IVC diam: 1.4 cm RVD1 (basal): 3.3 cm RVD2 (mid): 2.7 cm TAPSE: 1.9 cm Doppler Measurements & Calculations Ao V2 max: 141.8 cm/sec LVOT Max Edgardo: 133.1 cm/sec Ao V2 mean: 97.0 cm/sec LV V1 max P.1 mmHg Ao max P.0 mmHg LV V1 VTI: 31.3 cm Ao mean P.2 mmHg AYLA(I,D): 3.2 cm2 Ao V2 VTI: 30.6 cm AYLA(V,D): 2.9 cm2 sev ratio: 1.0 AYLA indexed to BSA (cm^2/m^2): 2.0 MV E max edgardo: 57.4 cm/sec TR max edgardo: 277.1 cm/sec MV A max edgardo: 63.2 cm/sec TR max P.7 mmHg MV E/A: 0.91 PA V2 max: 82.9 cm/sec Med Peak E' Edgardo: 7.4 cm/sec PA V2 mean: 53.8 cm/sec E/E' med: 7.8 PA mean P.3 mmHg Lat Peak E' Edgardo: 7.1 cm/sec PA pr(Accel): 39.6 mmHg E/E' lat: 8.1 E/e' average: 8.0 MV dec time: 0.24 sec SV(LVOT): 97.0 ml Reading Physician:PM
[2021-06-22 02:32] LABS: Troponin I 0.081 ng/mL (0.01-0.034)
[2021-06-22 05:55] LABS: Add Manual Diff / Slide Review NO; BUN Creatinine Ratio 20.2 (6-22); Basophils Absolute Auto 0 /uL (0-100); Basophils Percent Auto 0.2 % (0-2); Blood Urea Nitrogen 17 mg/dL (7-17); Calcium 8.9 mg/dL (8.4-10.2); Carbon Dioxide 25 mmol/L (22-32); Chloride 113 mmol/L (98-107); Eosinophils Absolute Auto 700 /uL (0-450); Estimated Glomerular Filt Rate > 60 mL/min (>60); Glucose 88 mg/dL (80-110); HEMOLYSIS < 15 (0-50); Hematocrit 37.7 % (36-46); Lymphocytes Absolute Auto 1800 /uL (1100-4500); Lymphocytes Percent Auto 26.1 % (25-40); Magnesium 2.2 mg/dL (1.6-2.3); Mean Corpuscular HGB Conc 34.4 % (30-36); Mean Corpuscular Hemoglobin 32.2 PG (26-34); Mean Corpuscular Volume 93.7 fL (80-100); Monocytes Absolute Auto 600 /uL (0-900); Monocytes Percent Auto 8.2 % (3-14); Neutrophils Absolute Auto 3900 /uL (1500-7000); Neutrophils Percent Auto 55.5 % (50-75); Platelet Count 249 X10^3/uL (150-400); Potassium 3.8 mmol/L (3.4-5.1); Red Blood Cell Count 4.03 X10^6/uL (4.0-5.2); Red Cell Distribution Width 13.3 % (11.6-14.8); Sodium 142 mmol/L (137-145)
[2021-06-22 05:58] LABS: Alanine Aminotransferase 10 IU/L (<35); Albumin 3.7 g/dL (3.5-5.0); Albumin Globulin Ratio 1.2 (1.0-2.8); Alkaline Phosphatase 61 U/L (38-126); Aspartate Aminotransferase 19 IU/L (14-36); Bilirubin Total 0.5 mg/dL (0.2-1.3); Bilirubin Unconjugated 0.6 mg/dL (0.0-1.1); HEMOLYSIS < 15 (0-50); Total Protein 6.7 g/dL (6.3-8.2)
[2021-06-22] MEDS: PANTOPRAZOLE DR 40 MG TABLET PO (06:18)
[2021-06-22] MEDS: LEVOTHYROXINE 75 MCG TABLET PO (06:18)
[2021-06-22] MEDS: ENOXAPARIN 60 MG/0.6 ML SYRINGE SUBCUT ×2 (08:13→20:37)
[2021-06-22] MEDS: ACETAMINOPHEN 325 MG TABLET 650 MG PO (08:36)
[2021-06-22 09:17] LABS: Troponin I 0.063 ng/mL (0.01-0.034)
--- NOTE | 2021-06-22 11:08 | P.PN_ITS ---
Subjective Subjective Date Patient Seen: 06/22/21 Time Patient Seen: 11:00 Interval history: Still short of breath but improved. Resting comfortably in bed. Exam Vital Signs (past 8 hours): - 06/22/21 03:29 06/22/21 07:40 06/22/21 08:27 Temperature 98.2 F Pulse Rate 70 69 Respiratory Rate 18 16 Blood Pressure 129/54 L Pulse Oximetry 94 97 96 Oxygen Delivery Method Room Air Oxygen Flow Rate 0 Narrative Exam Narrative: GEN: no acute distress PULM: clear bilaterally CV: regular rate and rhythm, no murmurs ABD: soft, nontender, nondistended, no organmegaly EXT: warm and well perfused with no edema Objective Labs Result Diagrams: 06/22/21 05:20 06/22/21 05:20 Labs: Laboratory Results - last 24 hr 06/21/21 06/21/21 06/21/21 10:42 10:42 10:42 WBC RBC Hgb Hct MCV MCH MCHC RDW Plt Count Neut % (Auto) Lymph % (Auto) [place] % (Auto) Eos % (Auto) Baso % (Auto) Neut # (Auto) Lymph # (Auto) [place] # (Auto) Eos # (Auto) Baso # (Auto) APTT D-Dimer 2139 H Sodium Potassium Chloride Carbon Dioxide BUN Creatinine Estimated GFR BUN/Creatinine Ratio Glucose Calcium Magnesium Total Bilirubin Conjugated Bilirubin Unconjugated Bilirubin AST ALT Alkaline Phosphatase Troponin I 0.056 H NT-Pro-B Natriuret Pep 83 Total Protein Albumin Globulin Albumin/Globulin Ratio SARS-CoV-2 (PCR) 06/21/21 06/21/21 06/21/21 12:50 13:51 15:41 WBC RBC Hgb Hct MCV MCH MCHC RDW Plt Count Neut % (Auto) Lymph % (Auto) [place] % (Auto) Eos % (Auto) Baso % (Auto) Neut # (Auto) Lymph # (Auto) [place] # (Auto) Eos # (Auto) Baso # (Auto) APTT > 400 H* D > 400 H* D-Dimer Sodium Potassium Chloride Carbon Dioxide BUN Creatinine Estimated GFR BUN/Creatinine Ratio Glucose Calcium Magnesium Total Bilirubin Conjugated Bilirubin Unconjugated Bilirubin AST ALT Alkaline Phosphatase Troponin I 0.104 H NT-Pro-B Natriuret Pep Total Protein Albumin Globulin Albumin/Globulin Ratio SARS-CoV-2 (PCR) 06/21/21 06/21/21 06/21/21 16:15 18:30 20:42 WBC RBC Hgb Hct MCV MCH MCHC RDW Plt Count Neut % (Auto) Lymph % (Auto) [place] % (Auto) Eos % (Auto) Baso % (Auto) Neut # (Auto) Lymph # (Auto) [place] # (Auto) Eos # (Auto) Baso # (Auto) APTT 58 H D D-Dimer Sodium Potassium Chloride Carbon Dioxide BUN Creatinine Estimated GFR BUN/Creatinine Ratio Glucose Calcium Magnesium Total Bilirubin Conjugated Bilirubin Unconjugated Bilirubin AST ALT Alkaline Phosphatase Troponin I 0.116 H NT-Pro-B Natriuret Pep Total Protein Albumin Globulin Albumin/Globulin Ratio SARS-CoV-2 (PCR) Negative 06/22/21 06/22/21 06/22/21 02:01 05:20 05:20 WBC 7.0 RBC 4.03 Hgb 13.0 Hct 37.7 MCV 93.7 MCH 32.2 MCHC 34.4 RDW 13.3 Plt Count 249 Neut % (Auto) 55.5 Lymph % (Auto) 26.1 [place] % (Auto) 8.2 Eos % (Auto) 10.0 H Baso % (Auto) 0.2 Neut # (Auto) 3900 Lymph # (Auto) 1800 [place] # (Auto) 600 Eos # (Auto) 700 H Baso # (Auto) 0 APTT D-Dimer Sodium 142 Potassium 3.8 Chloride 113 H Carbon Dioxide 25 BUN 17 Creatinine 0.84 Estimated GFR > 60 BUN/Creatinine Ratio 20.2 Glucose 88 Calcium 8.9 Magnesium 2.2 Total Bilirubin Conjugated Bilirubin Unconjugated Bilirubin AST ALT Alkaline Phosphatase Troponin I 0.081 H NT-Pro-B Natriuret Pep Total Protein Albumin Globulin Albumin/Globulin Ratio SARS-CoV-2 (PCR) 06/22/21 06/22/21 05:20 08:04 WBC RBC Hgb Hct MCV MCH MCHC RDW Plt Count Neut % (Auto) Lymph % (Auto) [place] % (Auto) Eos % (Auto) Baso % (Auto) Neut # (Auto) Lymph # (Auto) [place] # (Auto) Eos # (Auto) Baso # (Auto) APTT D-Dimer Sodium Potassium Chloride Carbon Dioxide BUN Creatinine Estimated GFR BUN/Creatinine Ratio Glucose Calcium Magnesium Total Bilirubin 0.5 Conjugated Bilirubin 0.0 Unconjugated Bilirubin 0.6 AST 19 ALT 10 Alkaline Phosphatase 61 Troponin I 0.063 H NT-Pro-B Natriuret Pep Total Protein 6.7 Albumin 3.7 Globulin 3.0 Albumin/Globulin Ratio 1.2 SARS-CoV-2 (PCR) PFSH Medical History Degenerative tear of acetabular labrum of right hip Facet arthropathy, lumbar Hypothyroid Lumbar radiculopathy Right knee DJD Sjogrens syndrome Surgical History H/O lumpectomy Hx of appendectomy Family History (Updated 06/21/21 @ 23:31 by PATRICIA Traylor) Mother Breast cancer Father No significant medical problems Social History household members: spouse Smoking Status: Former smoker Assessment & Plan Assessment & Plan narrative: 1. Acute recurrent PE -patient with pmh of sjogrens, sjogrens greatly increases risk of PE -patient hemodynamically stable -tropnin initially elevated but now downtrending -ECHO pending -despite large size of PE, suspect that there is no indication for thrombolysis, however will follow up final echo reports -continue lovenox for now -given recurrent PE, may need to be on lifelong anticoagulation -would recommend return to follow with oncology to see if laboratory testing for PE will now be covered by insurance 2. Hypothyroidism -continue synthroid 3. Breast cancer, history of -in remission -follow regularly with oncology and no evidence of recurrence 4. Sjogrens -not on treatment -follow up as outpatient Time Spent With Patient Critical Care time: I spent a total of [] minutes of critical care time on this patient's care today; this time is exclusive of procedural time. Quality VTE Deep Vein Thrombosis/Pulmonary Embolism Present on Admission: Yes
--- NOTE | 2021-06-22 15:13 | CM.DANOTE ---
Patient is a 76 yo female who was admitted on 06/21/21 for SOB, Dyspnea, Tightness. Pt has MCR and her PCP is Dr. Renetta Sevilla. EMR was reviewed. Per MD, pt with hx of saddle embolism and breast cancer at baseline and admitted for PEs and Echo ordered. Pt lives with spouse in [place] and goes for regular long walks with friends daily and active and independent at baseline. Pt has seen Oncologist Dr. Remy at [facility] and recommendation of outpt f/u with Oncology. Per RN, pt is independent in room and no concerns or needs at this time and awaiting Echo results to determine if pt stable for discharge. Per radiologist, pt's EF appears to be 60-65%. Plan: SW to follow for bedside assessment tomorrow if pt remains in the hospital overnight but does not appear pt will require thoracentesis at this time. SW to follow for any further identified discharge needs and plan of home with spouse when stable. [facility] Discharge Planning/Care Management Advanced directive, confirm from FAMILY Start: 06/21/21 18:59 Freq: Q24H Status: Active Protocol: Document 06/21/21 18:59 AKP (Rec: 06/21/21 19:00 AKP [id number]) Advance Directive, confirm on record Time 18:59 Person contacted pt already provided Copy received Yes Advanced directive available on record Yes CM Discharge Assessment Start: 06/22/21 15:11 Freq: Status: Active Protocol: Document 06/22/21 15:12 BF (Rec: 06/22/21 15:13 BF [id number]) Discharge Planning Assessment Assigned Internal Carver CHRIST Carmona DPOA/Assigned Designee Name Spouse Juan Luis Contact Information [phone] Advance Directives? Yes Advance Directives on File No History Provided By Patient,Medical Record Has Patient been admitted in last 30 No days? Prior Living Arrangements House Household Members spouse Type of transporation used prior to Drives own vehicle admit Independent with ADL's Yes Is patient alert and oriented? Yes Caregiver for Another No Barriers to Discharge No Discharge Plan Home Transportation Arrangement Spouse can transport at d/c Referrals Initiated None needed Review Status In Process Please Provide Date Initial DC 06/22/21 Assessment Was Performed Next Review Type Continued Stay Review
[2021-06-23 01:50] VITALS: BP 128/68; PULSE 71; RESP 18; TEMP 36.2; O2SAT 95
[2021-06-23 04:29] VITALS: O2SAT 96
[2021-06-23] MEDS: LEVOTHYROXINE 75 MCG TABLET PO (05:50)
[2021-06-23 06:29] VITALS: BP 137/68; PULSE 69; RESP 16; TEMP 36.2; O2SAT 95
[2021-06-23 06:33] LABS: Hematocrit 38.7 % (36-46); Mean Corpuscular HGB Conc 33.5 % (30-36); Mean Corpuscular Hemoglobin 31.6 PG (26-34); Mean Corpuscular Volume 94.4 fL (80-100); Platelet Count 269 X10^3/uL (150-400); Red Cell Distribution Width 13.5 % (11.6-14.8); White Blood Cell Count 7.7 X10^3/uL (4.5-11.0)
[2021-06-23 06:47] LABS: BUN Creatinine Ratio 22.4 (6-22); Blood Urea Nitrogen 19 mg/dL (7-17); Calcium 8.8 mg/dL (8.4-10.2); Carbon Dioxide 30 mmol/L (22-32); Chloride 109 mmol/L (98-107); Estimated Glomerular Filt Rate > 60 mL/min (>60); Glucose 92 mg/dL (80-110); HEMOLYSIS < 15 (0-50); Potassium 3.9 mmol/L (3.4-5.1); Sodium 142 mmol/L (137-145)
[2021-06-23] MEDS: ENOXAPARIN 60 MG/0.6 ML SYRINGE SUBCUT (07:33)
[2021-06-23 07:52] VITALS: BP 125/63; PULSE 68; RESP 17; TEMP 36.4; O2SAT 96
--- NOTE | 2021-06-23 08:47 | PM.DS.1 ---
History of Present Illness History of Present Illness Date Patient Seen: 06/23/21 Chief complaint: Saddle PE, dyspnea Narrative: Ev Regalado is a 76-year-old female with a history of stage II lobular breast cancer in remission presented with shortness of breath on exertion.? She normally goes for a 1 hour daily walking trip with a friend of hers and found that she was breathing hard and getting very short of breath.? She then felt better and then completed her hike.? When she got home she sat down and it subsided after about 30 minutes.? She went into her bedroom to change from her hiking closed her street clothes and when she got back into the kitchen she found that she was breathing hard again and now with chest pain. Denied headache, difficulty swallowing, nausea or vomiting abdominal pain, changes in bladder or bowel control or patterns or neuropathies.? She decided to go to the emergency department at 10:30 a.m..? Patient has previously had a rather large pulmonary embolism in March 2019 and was started on apixaban and her primary physician told her she would only need to be on it for 3 months.? She then spoke to her oncologist who had been following her D-dimers and informed her that she needed to be continuing to take it however when she went into the Medicare donut hole the cost went up to over 400 a month for this medication and she was no longer able to take it.? She resumed taking it and again was told by her PCP that she did no longer needed to be on blood thinners.? She estimates that she is not been taking Eliquis for 2-3 months. Patient's initial?D-dimer on presentation to the emergency department was 2139.? They did a CT angio of her chest which indicated ?Extensive pulmonary?emboli can be seen, which involve 4 of the 5 lobes of the lung, with a greater burden of pulmonary emboli on the right than on the left. Likely mild right heart strain.?? It also indicated that this saddle PE was slightly smaller than her previous pulmonary embolism.? Today's D-dimer is as stated above, CBC is unremarkable, chloride is 109, troponin was 0.108 and 0.116 and will be trended until it starts to decline, COVID-19 PCR is negative. Discharge Providers Provider Date of admission: 06/21/21 14:21 Discharge Date: 06/23/21 Primary care physician: Renetta Sevilla MD Consults: 06/21/21 19:40 Consult to Discharge Planning Routine Comment: 06/21/21 20:30 Consult to Discharge Planning Routine Comment: PAP for apixaban during donut hole Discharge provider: Noemi Angel MD Summary Hospital Course Discharge Diagnosis: 1. Recurrent pulmonary embolus, present on admission 2. Hypothyroid 3. History of breast cancer in remission 4. Sjogren's disease Hospital Course: Patient was admitted to the hospital for acute shortness of breath. CTA confirmed acute pulmonary emboli. Patient was placed on Lovenox 60 mg subQ b.i.d., she had no further shortness of breath or hypoxia. Patient was deemed appropriate for discharge and arrangements were made for her to discharge home. She will resume Eliquis, she will follow-up with her PCP Dr. Sevilla next week. Status at Discharge Cognitive/behavioral status at discharge: oriented Functional status at discharge: independent ambulation Overall status at discharge: patient is progressing back to baseline Exam Vital Signs (past 8 hours): - 06/23/21 01:50 06/23/21 04:29 06/23/21 06:29 Temperature 97.1 F L 97.1 F L Pulse Rate 71 69 Respiratory Rate 18 16 Blood Pressure 128/68 137/68 Pulse Oximetry 95 96 95 06/23/21 07:52 Temperature 97.5 F L Pulse Rate 68 Respiratory Rate 17 Blood Pressure 125/63 Pulse Oximetry 96 Oxygen Delivery Method Room Air Oxygen Flow Rate 0 Narrative Exam Narrative: Pleasant female lying in bed in no obvious distress Resp Other: Lungs clear to auscultation Cardio Other: Cardiac exam: Regular rate rhythm normal S1-S2 GI Other: Abdomen: Soft nontender nondistended Extrem Other: Extremities: No edema Objective Labs Result Diagrams: 06/23/21 06:14 06/23/21 06:14 Labs: Laboratory Results - last 24 hr 06/22/21 06/23/21 06/23/21 08:04 06:14 06:14 WBC 7.7 RBC 4.10 Hgb 13.0 Hct 38.7 MCV 94.4 MCH 31.6 MCHC 33.5 RDW 13.5 Plt Count 269 Sodium 142 Potassium 3.9 Chloride 109 H Carbon Dioxide 30 BUN 19 H Creatinine 0.85 Estimated GFR > 60 BUN/Creatinine Ratio 22.4 H Glucose 92 Calcium 8.8 Troponin I 0.063 H PFSH Medical History Degenerative tear of acetabular labrum of right hip Facet arthropathy, lumbar Hypothyroid Lumbar radiculopathy Right knee DJD Sjogrens syndrome Surgical History H/O lumpectomy Hx of appendectomy Family History (Updated 06/21/21 @ 23:31 by PATRICIA Traylor) Mother Breast cancer Father No significant medical problems Social History household members: spouse Smoking Status: Former smoker Discharge Assessment & Plan Assessment and Plan Assessment: 1. Recurrent pulmonary embolus, present on admission 2. Hypothyroid 3. History of breast cancer in remission 4. Sjogren's disease Plan of Treatment: Discharge home Follow-up with Dr. Sevilla next week Discharge Plan Discharge Plan Patient Disposition: Home Discharge orders & Medications Prescriptions: New Elichrissyis DVT-PE Treat 30D Start 5 mg (74 tabs) tablets,dose pack 5 mg PO BID Qty: 74 0RF Continued celecoxib [Celebrex] 200 mg capsule 200 mg PO DAILY Qty: 90 1RF omeprazole 20 mg Capsule,Delayed Release(Dr/Ec) 20 mg DAILY 0RF eszopiclone 1 mg Tablet 1 mg PO BEDTIME PRN (Reason: Sleep) 0RF calcium carbonate-vitamin D3 [Calcium 500 + D] 500 mg(1,250mg) -200 unit Tablet 1 tab PO DAILY 0RF cholecalciferol (vitamin D3) [Vitamin D3] 2,000 unit Tablet 2,000 unit PO DAILY 0RF levothyroxine [Synthroid] 75 MCG tablet 75 mcg PO QAM Qty: 90 0RF Follow up/Referrals: Renetta Sevilla MD [Primary Care Provider] - Discharge Health Status Multidrug resistant organism: No MDRO Diet/Activity/Treatments Diet: Diet as Tolerated Activity: as tolerated Catheter: Condom catheter Oxygen: none Discharge Data Primary Care Provider: Renetta Sevilla Quality VTE Deep Vein Thrombosis/Pulmonary Embolism Present on Admission: Yes
--- NOTE | 2021-06-23 11:30 | CM.DPC ---
DCP Discharge Home Per MD, pt is medically stable to d/c home today with no identified barriers to discharge and Echo results were normal. Per RN, no concerns and pt has remained independent in the room and given d/c instructions and family provided transport home this morning. No SW needs at this time. [facility]
== END 2021-06-23 10:59 | disposition home or self-care (01) | DRG 176 ==
LOC: ED 14:03 → AC 14:22
PROVIDERS: Internal Medicine; Nurse Practitioner Family; Admitting Provider Internal Medicine; Emergency Provider Emergency Medicine; PCP Internal Medicine; Referring Provider Emergency Medicine; Visit Provider Internal Medicine
DX: I26.92 Saddle embolus of pulmonary artery without acute cor pulmonale (principal); I24.8 Other forms of acute ischemic heart disease; E03.9 Hypothyroidism, unspecified; Z20.822 Contact with and (suspected) exposure to COVID-19; Z87.891 Personal history of nicotine dependence
CPT/HCPCS: 36415; 71045; 71275; 80048; 80053; 80076; 82550; 83690; 83735; 83880; 84484; 85025; 85027; 85379; 85610; 85730; 87635; 93005; 93306; 94762; 96365; 96376; 99284; C9803; J1644; J1650; Q9967

== ENCOUNTER → 2021-09-02 08:00 | Outpatient (CLI) | payer MEDICARE, SELFPAY ==
[2021-06-21 18:54] VITALS: BMI 23.3
--- NOTE | 2021-09-02 | DI.MG.S_ITS ---
BILATERAL DIGITAL SCREENING MAMMOGRAM 3D/2D WITH CAD: 09/02/2021 CLINICAL: Routine screening. Personal history of left breast cancer. Family history of breast cancer. Comparison is made to exams dated: 07/22/2020 mammogram, 07/21/2019 mammogram, and 05/09/2018 mammogram - [facility]. There are scattered fibroglandular elements in both breasts. Current study was also evaluated with a Computer Aided Detection (CAD) system. There are benign calcifications in both breasts. There also are benign post operative findings in the left breast. No significant masses, calcifications, or other findings are seen in either breast. There has been no significant interval change. IMPRESSION: BENIGN There is no mammographic evidence of malignancy. A 1 year screening mammogram is recommended. This exam was interpreted at Station ID: [id number]. NOTE: For mammograms, a report in lay terms will be sent to the patient. Approximately 15% of breast malignancies will not be visualized mammographically. In the management of a palpable breast mass, a negative mammogram must not discourage biopsy of a clinically suspicious lesion. Electronically Signed By: Vane tran/owen:09/02/2021 13:57:31 copy to: Renetta Sevilla letter sent: Normal Exam ACR BI-RADS Category 2: Benign Finding(s) 3342F
== END ==
PROVIDERS: PCP Internal Medicine; Referring Provider Internal Medicine; Visit Provider Internal Medicine
DX: Z12.31 Encounter for screening mammogram for malignant neoplasm of breast (principal); Z85.3 Personal history of malignant neoplasm of breast; Z80.3 Family history of malignant neoplasm of breast
CPT/HCPCS: 77063; 77067

== ENCOUNTER → 2022-09-04 14:58 | Outpatient (CLI) | payer MEDICARE, OTHER, SELFPAY ==
[2021-06-21 18:54] VITALS: BMI 23.3
--- NOTE | 2022-09-04 | DI.MG.S_ITS ---
BILATERAL DIGITAL SCREENING MAMMOGRAM 3D/2D WITH CAD POST LUMPECTOMY: 09/04/2022 CLINICAL: Routine screening. Personal history of left breast cancer. Family history of breast cancer. Comparison is made to exams dated: 09/02/2021 mammogram, 07/22/2020 mammogram, and 07/21/2019 mammogram - . There are scattered areas of fibroglandular density in both breasts (category b / 25%-50% glandular tissue). Current study was also evaluated with a Computer Aided Detection (CAD) system. There are benign calcifications in both breasts. There also are benign post operative findings in the left breast. No significant masses, calcifications, or other findings are seen in either breast. There has been no significant interval change. IMPRESSION: BENIGN There is no mammographic evidence of malignancy. A 1 year screening mammogram is recommended. This exam was interpreted at Station ID: [id number]. NOTE: For mammograms, a report in lay terms will be sent to the patient. Approximately 15% of breast malignancies will not be visualized mammographically. In the management of a palpable breast mass, a negative mammogram must not discourage biopsy of a clinically suspicious lesion. Electronically Signed By: Dylan stark/owen:09/04/2022 15:21:42 copy to: Renetta Sevilla letter sent: Normal Exam ACR BI-RADS Category 2: Benign Finding(s) 3342F
== END ==
PROVIDERS: PCP Internal Medicine; Referring Provider Internal Medicine; Visit Provider Internal Medicine
DX: Z12.31 Encounter for screening mammogram for malignant neoplasm of breast (principal); Z85.3 Personal history of malignant neoplasm of breast; Z80.3 Family history of malignant neoplasm of breast
CPT/HCPCS: 77063; 77067

== ENCOUNTER → 2023-09-04 10:50 | Outpatient (CLI) | payer MEDICARE, OTHER, SELFPAY ==
[2021-06-21 18:54] VITALS: BMI 23.3
--- NOTE | 2023-09-04 10:52 | DI.MG.S_ITS ---
BILATERAL DIGITAL SCREENING MAMMOGRAM 3D/2D WITH CAD: 09/04/2023 CLINICAL: Routine screening. Personal history of left breast cancer. Comparison is made to exams dated: 09/04/2022 mammogram, 09/02/2021 mammogram, and 07/22/2020 mammogram - [facility]. There are scattered areas of fibroglandular density in both breasts (category b / 25%-50% glandular tissue). Current study was also evaluated with a Computer Aided Detection (CAD) system. There is a benign calcification in the left breast. There also are benign post operative findings in the left breast. No significant masses, calcifications, or other findings are seen in either breast. There has been no significant interval change. IMPRESSION: BENIGN There is no mammographic evidence of malignancy. A 1 year screening mammogram is recommended. This exam was interpreted at Station ID: [id number]. NOTE: For mammograms, a report in lay terms will be sent to the patient. Approximately 15% of breast malignancies will not be visualized mammographically. In the management of a palpable breast mass, a negative mammogram must not discourage biopsy of a clinically suspicious lesion. Electronically Signed By: Gina james/owen:09/04/2023 13:41:34 copy to: Renetta Sevilla letter sent: Normal Exam ACR BI-RADS Category 2: Benign Finding(s) 3342F
== END ==
LOC: MAMMO 10:51
PROVIDERS: PCP Internal Medicine; Referring Provider Internal Medicine; Visit Provider Internal Medicine
DX: Z12.31 Encounter for screening mammogram for malignant neoplasm of breast (principal); R92.323 Mammographic fibroglandular density, bilateral breasts; Z85.3 Personal history of malignant neoplasm of breast
CPT/HCPCS: 77063; 77067

== ENCOUNTER → 2024-09-11 17:02 | Outpatient (CLI) | payer MEDICARE, OTHER, SELFPAY ==
[2021-06-21 18:54] VITALS: BMI 23.3
--- NOTE | 2024-09-11 17:04 | DI.MG.S_ITS ---
MM screening mammo BI: 09/11/2024. BI-RADS: 2 CLINICAL: 79-year old female for bilateral screening mammogram. No Tyrer-Cuzick risk score calculation due to the patient's personal history of breast cancer. Patient reports a history of left breast carcinoma diagnosed at age 63. Status-post left lumpectomy with radiation therapy, chemotherapy and hormonal therapy. Current reported family history of breast cancer: mother. The patient had a prior left breast biopsy. PRIOR EXAMS 09/04/2023, 09/04/2022, 09/02/2021, MAMMOGRAPHY TECHNIQUE: 2D and 3D (tomosynthesis) digital mammographic views obtained, with additional images as needed for full coverage. Current study was also evaluated with a Computer Aided Detection (CAD) system. DENSITY B. There are scattered areas of fibroglandular density. MAMMOGRAPHY FINDINGS Right: No suspicious mass, asymmetry, microcalcification, or other abnormality seen. Left: Benign-appearing post-surgical changes noted on the left. There are no suspicious masses, calcifications, or other findings in the breast. IMPRESSION: Right * No evidence of malignancy. Left * No evidence of malignancy with benign findings. RECOMMENDATIONS Bilateral * Annual screening mammography. OVERALL ASSESSMENT CATEGORY BI-RADS-2: Benign. The [employer] recommends annual screening mammography beginning at age 40 for women with average risk of breast cancer. ELECTRONICALLY SIGNED: Ragini Ruffin M.D. on 09/14/2024 at 08:45:17 PM PT Interpreting Station ID: [id number]
== END ==
PROVIDERS: PCP Internal Medicine; Referring Provider Internal Medicine; Visit Provider Internal Medicine
DX: Z12.31 Encounter for screening mammogram for malignant neoplasm of breast (principal); Z85.3 Personal history of malignant neoplasm of breast; Z80.3 Family history of malignant neoplasm of breast
CPT/HCPCS: 77063; 77067

== ENCOUNTER → 2024-12-30 14:21 | Outpatient (CLI) | payer MEDICARE, OTHER, SELFPAY ==
[2021-06-21 18:54] VITALS: BMI 23.3
--- NOTE | 2024-12-30 14:25 | DI.RAD.S_ITS ---
PROCEDURE: XR CHEST 2V INDICATIONS: ACUTE COUGH TECHNIQUE: 2 views of the chest were acquired. COMPARISON: [facility], CR, XR CHEST 1V, 06/21/2021, 10:35. FINDINGS: Moderate bilateral diffuse predominantly perihilar and lower lobe peribronchial thickening with bilateral lower lobe and right upper lobe patchy opacities, some of which may be related expiratory result; however, bronchitis, viral infection, bronchopneumonia, or other process should be considered. Follow-up suggested. Mild bilateral apical pleural thickening unchanged. Cardiopericardial silhouette and pulmonary vasculature within normal limits. No pneumothorax, no pleural effusion. IMPRESSION: Moderate bilateral peribronchial thickening and patchy opacities as discussed above. Follow-up is needed. If symptoms persist or worsen, CT chest could be performed. Dictated by: Chong Watters M.D. on 12/31/2024 at 20:26 Approved by: Chong Watters M.D. on 12/31/2024 at 20:29
== END ==
PROVIDERS: PCP Family Medicine; Referring Provider Family Medicine; Visit Provider Student in an Organized Health Care Education/Training Program
DX: R05.1 Acute cough (principal)
CPT/HCPCS: 71046